=== PATIENT | female | born 1995 | race Caucasian/White ===

== ENCOUNTER 2022-03-25 16:15 | Outpatient (REF) | payer OTHER, SELFPAY ==
[2022-03-25 17:01] LABS: Hematocrit 40.8 % (37.0-47.0); Hemoglobin 13.1 g/dl (12.0-16.0); Mean Corpuscular HGB Conc 32.1 g/dl (31.0-35.0); Mean Platelet Volume 11.9 fL (9.4-12.3); Platelet Count 239 X10*3/uL (160-400); Red Blood Count 4.86 X10*6/uL (4.20-5.50); Red Cell Distribution Width 13.6 % (11.0-16.0); White Blood Count 8.5 X10*3/uL (4.8-10.8)
[2022-03-25 18:19] LABS: Alanine Aminotransferase 13 U/L (0-31); Albumin Level 4.3 g/dL (3.5-5.0); Alkaline Phosphatase 82 U/L (39-117); Anion Gap 11 (12-20); Aspartate Amino Transferase 14 U/L (5-31); Bilirubin Total 0.5 mg/dL (0.0-1.0); Blood Urea Nitrogen 13 mg/dL (9-16); C Reactive Protein 0.26 mg/dL (< or = 0.50); Calcium 9.4 mg/dL (8.4-10.2); Carbon Dioxide 26 mmol/L (22-29); Chloride 103 mmol/L (96-108); Estimated Glomerular Filt Rate > 60; Ferritin 15 ng/mL (10-122); Glucose Random 88 mg/dL (60-115); Iron 90 mcg/dL (30-160); Percent Iron Saturation 28 % (15-50); Potassium 3.8 mmol/L (3.3-5.1); Sodium 136 mmol/L (135-145); TSH reflex Free T4 1.74 uIU/mL (0.32-4.0); Total Iron Binding Capacity 327 mcg/dL (228-428); Total Protein 6.9 g/dL (6.5-8.0); Unsaturated Iron Binding 237 ug/dL
[2022-03-25 19:21] LABS: Vitamin B12 586 pg/mL (200-900)
[2022-03-27 13:49] LABS: IgA 257 mg/dL (47-310); IgG 902 mg/dL (600-1640); IgM 203 mg/dL (50-300)
[2022-03-27 14:13] LABS: Transglutaminase IgA <1.0 U/mL
== END 2022-03-25 16:16 | disposition home or self-care (01) ==
LOC: HO.LAB 16:15
PROVIDERS: Visit Provider Internal Medicine
DX: K52.9 Noninfective gastroenteritis and colitis, unspecified (principal); R11.2 Nausea with vomiting, unspecified
CPT/HCPCS: 36415; 80053; 82306; 82607; 82728; 82746; 82784; 83540; 84443; 85027; 86140; 86364; 99202

== ENCOUNTER 2022-03-26 10:21 | Outpatient (REF) | payer OTHER, SELFPAY ==
[2022-03-26 11:27] LABS: Leukocytes Stool Qualitative NEGATIVE (NEGATIVE)
[2022-03-26 12:38] LABS: Adenovirus F 40/41 Not Detected (Not Detect.); Astrovirus Not Detected (Not Detect.); Campylobacter Not Detected (Not Detect.); Cryptosporidium Not Detected (Not Detect.); Cyclospora cayetanensis Not Detected (Not Detect.); E. coli EAEC Not Detected (Not Detect.); E. coli EPEC Not Detected (Not Detect.); E. coli ETEC Not Detected (Not Detect.); E. coli STEC Not Detected (Not Detect.); Entamoeba histolytica Not Detected (Not Detect.); Giardia lamblia Not Detected (Not Detect.); Norovirus GI/GII Not Detected (Not Detect.); Plesiomonas shigelloides Not Detected (Not Detect.); Rotavirus A Not Detected (Not Detect.); Salmonella Not Detected (Not Detect.); Sapovirus Not Detected (Not Detect.); Shigella sp./EIEC Not Detected (Not Detect.); Vibrio Not Detected (Not Detect.); Vibrio Cholerae Not Detected (Not Detect.); Yersinia enterocolitica Not Detected (Not Detect.)
[2022-04-04 22:13] LABS: Calprotectin, Fecal 48 mcg/g
== END 2022-03-26 10:22 | disposition home or self-care (01) ==
LOC: HO.LNP 10:21
PROVIDERS: Visit Provider Internal Medicine
DX: K52.9 Noninfective gastroenteritis and colitis, unspecified (principal); R11.2 Nausea with vomiting, unspecified
CPT/HCPCS: 83993; 87338; 87507; 89055

== ENCOUNTER → 2022-04-12 13:41 | Outpatient (BNVA) | payer OTHER, SELFPAY | PROVIDERS: Visit Provider Internal Medicine | DX: K52.9 Noninfective gastroenteritis and colitis, unspecified (principal); R11.2 Nausea with vomiting, unspecified | CPT/HCPCS: 99212 ==

== ENCOUNTER 2022-04-23 12:13 | Day surgery (SDC) | payer OTHER, SELFPAY ==
[2022-04-17 16:15] VITALS: BMI 26.9
--- NOTE | 2022-04-19 13:11 | HO.ANESPROP2 ---
Documented by User: Roro Cordova NP 04/19/22 13:14 HPI - Anesthesia Eval Consult details Narrative: 27yo F for Upper Endoscopy and Colonoscopy PMFSH Active Problems Active Problems: All Active Problems (Updated 03/26/22 @ 09:02 by Meghan Masters MD) Abdominal cramping (Acute) Chronic diarrhea (Acute) Nausea & vomiting (Acute) Family History Family History Father Cancer Maternal Grandmother Cancer Paternal Grandfather Cancer Surgical History Surgical History History of esophagogastroduodenoscopy (EGD) History of wisdom tooth extraction Social History Social History Patient Tobacco Use Status: Never used Tobacco Are you DNR?: No Advance Directives: No Advance Directives Information Provided: Yes Nutrition Risks: No Nutritional Risk Patient : No FDLMP: 04/11 Meds Allergies Allergy/AdvReac Type Severity Reaction Status Date / Time No Known Allergies Allergy Verified 04/12/22 13:42 Home Medications Medication Instructions Recorded Confirmed Last Taken Type promethazine 12.5 mg rectal 25 mg NM BID 03/25/22 Unknown History suppository Exam Exam Date and Time: April 19, 2022 1311 Height,Weight and Vital Signs: Height 5 ft 3 in Weight 68.946 kg Pertinent Lab Results Pertinent Lab Results: Laboratory Tests 03/25/22 03/25/22 16:37 16:37 WBC 8.5 Hgb 13.1 Hct 40.8 Plt Count 239 Sodium 136 Potassium 3.8 Chloride 103 Carbon Dioxide 26 BUN 13 Creatinine 0.75 Assessment and Plan Assessment Anesthesia Assessment: Chart Reviewed Documented by User: Savage Velarde MD 04/23/22 12:43 PMFSH Active Problems Active Problems: All Active Problems (Updated 03/26/22 @ 09:02 by Meghan Masters MD) Abdominal cramping (Acute) Chronic diarrhea (Acute) exercise induced asthma Nausea & vomiting (Acute) Family History Family History Father Cancer Maternal Grandmother Cancer Paternal Grandfather Cancer Family history of problems with anesthesia: No Surgical History Surgical History History of esophagogastroduodenoscopy (EGD) History of wisdom tooth extraction History of Problems with Anesthesia: No Social History Social History Patient Tobacco Use Status: Never used Tobacco Are you DNR?: No Advance Directives: No Advance Directives Information Provided: Yes Nutrition Risks: No Nutritional Risk Patient : No FDLMP: 04/11 Meds Allergies Allergy/AdvReac Type Severity Reaction Status Date / Time No Known Allergies Allergy Verified 04/12/22 13:42 Home Medications Medication Instructions Recorded Confirmed Last Taken Type promethazine 12.5 mg rectal 25 mg NM BID 03/25/22 Unknown History suppository Exam Airway Mallampati Class: II TM Dist: >3cm Neck ROM: Full Heart: rrr Lungs: clear Assessment and Plan Final Anesthetic Review Family History of Problems with Anesthesia: No History of Problems with Anesthesia: No NPO: Yes ASA Class: II Final Preanesthetic Review: No Changes in Pt Med Stat, Meds/Allgs Chart Reviewed, Consent Obtained/Reviewed and Anes Risks/Benef Reviewed Patient Risk: Intermediate Procedure Risk: Low Anesthetic Plan Anesthetic Plan: MAC: Disposition: Standard PACU
[2022-04-23 12:16] VITALS: BP 112/80; PULSE 92; RESP 18; TEMP -13.8; TEMP 7; O2SAT 98
[2022-04-23 12:31] LABS: UPreg QC Valid YES; Urine Pregnancy NEGATIVE (NEGATIVE)
[2022-04-23] MEDS: Lactated Ringers 1,000 ML 100 ML IVCONT (12:41)
--- NOTE | 2022-04-23 12:56 | MHC.SHP ---
Pre-Procedural Eval Section A Date of Service: 04/23/22 The patient is an INPATIENT: No The History & Physical has been completed within 30 days and I have reviewed it.: Yes Section B Chief Complaint: Nausea with vomiting,abdominal pain,gastroenteriti Allergies: Allergies Allergy/AdvReac Type Severity Reaction Status Date / Time No Known Allergies Allergy Verified 04/12/22 13:42 Plan Diagnosis/Plan: Unchanged I have reviewed the history and physical and performed a pertinent physical examination on my patient. No changes have occurred unless specified. Time Spent With Patient Time: Total time managing care of this patient today ____ minutes.
--- NOTE | 2022-04-23 13:04 | P.OP_ITS ---
Operative Note Operative Note Date of Service: 04/23/22 Narrative: Procedure: Esophagogastroduodenoscopy and Colonoscopy Indication: Abd pain, chronic N,V,D Endoscopist: Meghan Masters MD Anesthesia Provider: Dr Savage Velarde Anesthesia type: MAC Instrument: Olympus [id number]-[id number] and [id number] ?? EGD Procedure:?? The procedure, indications, preparation and potential complications were reviewed with the patient, who indicated understanding and gave written informed consent to proceed. A physical exam was performed. The endoscope was introduced through the mouth, and advanced to the second part of duodenum. The mucosa was carefully examined on slow withdrawal of the endoscope. The patient tolerated the procedure well. There were no immediate complications.? ? EGD Findings:? * Esophagus:? Normal mucosa noted in the entire esophagus. The Z line was at 38 cm. Middle and lower esophagus cold forceps biopsies were obtained to rule out eosinophilic esophagitis. * Stomach:? Normal mucosa was noted in the stomach. Random cold forceps gastric biopsies were taken to rule out H Pylori infection. * Duodenum:? Normal mucosa was noted in the whole of the examined duodenum. Cold forceps biopsies were taken from duodenal bulb and second portion of the duodenum to rule out celiac sprue. Colonoscopy Procedure: The patient was then turned for the colonoscopy. A digital rectal exam was performed which was normal. The colonoscope was then inserted through the anus and advanced through the colon to the cecum at 80 cm. The appendiceal orifice and ileocecal valve was identified. Mucosa was carefully examined under high definition white light as the instrument was slowly withdrawn in a retrograde panoramic fashion. Retroflexion was performed in rectum. The procedure was not difficult. There were no immediate obvious complications. The quality of the prep was BBPS: 1+2+1 = inadequate Withdrawal time 8 minutes. Limitations: Poor prep. Findings: Mucosa: Normal to cecum to the extent visualised. Random cold forceps biopsies were taken from right and left side of the colon to r/o microscopic colitis Protruding lesions: * Small internal hemorrhoids stigmata of recent bleeding. ? Impression:? * Normal esophagus (biopsy) * Normal stomach (biopsy) * Normal duodenum (biopsy) * Limited visualisation of colon mucosa (biopsy) * Poor prep. Exam was not adequate for polyp detection. ?? Recommendations:?? * Follow biopsy results. Our office will call or send a letter with results within 7-10 days. * If H pylori +, patient will be prescribed eradication therapy followed by test of cure. * Avoid NSAIDs. * Resume CRC screening at 43y.o Above has been reviewed with the patient. Relevant educational hand outs were provided at discharge.
[2022-04-23 14:05] VITALS: BP 108/69; PULSE 77; RESP 14; TEMP 36.3; O2SAT 98
[2022-04-23 14:20] VITALS: BP 117/79; PULSE 67; RESP 16; TEMP 36.4; O2SAT 99
--- NOTE | 2022-04-23 15:01 | PC.NURSE ---
ANESTHESIA, GRAHAM WEBBER ACCESSED PATIENT PRIOR TO HER DISCHARGE PATIENT REPORTED SOME DIZZINESS. DR. STEVENSON STATED FOR PATIENT TO TAKE IT EASY WHEN SHE GOT HOME AND TO DRINK FLUIDS. 117/71, 74, 98% RA.
== END 2022-04-23 15:04 | disposition home or self-care (01) ==
PROVIDERS: Nurse Practitioner; PCP Internal Medicine; Visit Provider Internal Medicine
PROC: (CPT 45380; principal; 2022-04-23 13:50)
DX: R10.9 Unspecified abdominal pain (principal); K52.9 Noninfective gastroenteritis and colitis, unspecified; K64.8 Other hemorrhoids; R11.2 Nausea with vomiting, unspecified
CPT/HCPCS: 45380; 43239; 81025; 88305; 88342

== ENCOUNTER → 2022-05-07 10:56 | Outpatient (BNVA) | payer OTHER, SELFPAY | PROVIDERS: PCP Internal Medicine; Visit Provider Internal Medicine | DX: R11.2 Nausea with vomiting, unspecified (principal) | CPT/HCPCS: 99212 ==

== ENCOUNTER 2022-05-21 09:26 | Outpatient (REF) | payer OTHER, SELFPAY ==
[2022-05-22 15:09] LABS: H Pylori Breath Test Negative (Negative)
== END 2022-05-21 09:27 | disposition home or self-care (01) ==
LOC: HO.LNP 09:26
PROVIDERS: PCP Internal Medicine; Visit Provider Internal Medicine
DX: Z11.2 Encounter for screening for other bacterial diseases (principal); K52.9 Noninfective gastroenteritis and colitis, unspecified; R10.9 Unspecified abdominal pain; R11.2 Nausea with vomiting, unspecified
CPT/HCPCS: 83013; 99211

== ENCOUNTER → 2022-08-13 08:30 | Outpatient (BNVA) | payer OTHER, SELFPAY | PROVIDERS: PCP Internal Medicine; Visit Provider Internal Medicine Gastroenterology ==

== ENCOUNTER 2022-10-17 09:57 | Outpatient (REF) | payer OTHER, SELFPAY ==
--- NOTE | ~2022-10-17 | US_ITS ---
EXAMINATION: US ABDOMEN COMPLETE CLINICAL INFORMATION: Nausea with vomiting, unspecified. COMPARISON: None available. TECHNIQUE: Real-time imaging of the abdominal viscera. FINDINGS: PANCREAS: Normal. ABDOMINAL AORTA: The proximal, mid, and distal segments are normal in caliber. INFERIOR VENA CAVA: Visualized portions are normal. LIVER: The liver is normal in size. The liver contour is normal. Parenchymal echogenicity is normal. There is a 3.3 x 2.8 x 3.6 cm hyperechoic lesion or area high in the posterior right lobe of the liver questionable for a hemangioma. There is no intrahepatic biliary duct dilatation seen. GALLBLADDER: The gallbladder is normal in size. Multiple gallbladder wall polyps largest measuring 7 x 4 x 5 mm. No gallstones. COMMON BILE DUCT: Normal in caliber measuring 0.2 cm in diameter. RIGHT KIDNEY: Normal. No hydronephrosis. No renal calculi or focal parenchymal lesions. The kidney measures 11.7 cm in maximum dimension. LEFT KIDNEY: 1.1 x 1.5 x 1.1 cm hyperechoic lesion in the upper pole. 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 No hydronephrosis or renal calculi. The kidney measures 11.4 cm in maximum dimension. SPLEEN: Normal. The spleen measures 11.9 cm in maximum dimension. FREE FLUID: None. US/US abdomen complete IMPRESSION: 3 cm hyperechoic lesion in the right lobe of the liver questionable for a hemangioma. 1 x 1.5 cm hyperechoic lesion in the upper pole the left kidney questionable for an angiomyolipoma. Follow-up abdominal MRI for further characterization of these findings recommended. Multiple gallbladder wall polyps, largest measuring 7 mm. Given size of polyp, ultrasound follow-up in 6 months recommended.
== END 2022-10-17 09:58 | disposition home or self-care (01) ==
LOC: HO.HMGCX 09:57
PROVIDERS: PCP Internal Medicine; Visit Provider Internal Medicine
DX: R11.2 Nausea with vomiting, unspecified (principal)
CPT/HCPCS: 76700

== ENCOUNTER → 2022-10-25 14:55 | Outpatient (BNVA) | payer OTHER, SELFPAY | PROVIDERS: PCP Internal Medicine; Visit Provider Surgery | DX: K52.9 Noninfective gastroenteritis and colitis, unspecified (principal); K82.4 Cholesterolosis of gallbladder; R11.2 Nausea with vomiting, unspecified; R10.9 Unspecified abdominal pain | CPT/HCPCS: 99202 ==

== ENCOUNTER 2022-11-14 08:31 | Day surgery (SDC) | payer OTHER, SELFPAY ==
[2022-11-14] VITALS (16 sets, daily range): BP systolic 119–135; BP diastolic 61–84; PULSE 60–100; RESP 15–18; TEMP 36.6–36.9; O2SAT 98–100; BMI 25.7
[2022-11-14] MEDS: Lactated Ringers 1,000 ML 100 ML IVCONT (08:53)
[2022-11-14 08:57] LABS: UPreg QC Valid YES; Urine Pregnancy NEGATIVE (NEGATIVE)
--- NOTE | 2022-11-14 09:15 | PC.NURSE ---
IV attempt by author. insertion by carmen caballero rn
--- NOTE | 2022-11-14 09:17 | P.OP_ITS ---
Operative Note Operative Note Date of Service: 11/14/22 Narrative: Preop diagnosis: [Abdominal pain and cholesterolosis of the gallbladder] Postop diagnosis: [same, RUQ adhesions to GB; incomplete rotation with congenital adhesive bands] Procedure: [Laparoscopic cholecystectomy and lysis of adhesions] Surgeon: Harry Torres MD Assist: [Jeremie Babcock PA-C] Anesthesia: [GET, local: Marcaine 0.5% plain] Estimated blood loss: [3cc] Specimen: [Gallbladder with contents] Intraoperative findings: [Incomplete rotation with the cecum in the pelvis on the uterus; adhesive band from the right anterolateral abdomen to the ascending colon; the duodenum/pylorus appeared to cross the midline in the right upper quadrant; adhesion of the omentum to the gallbladder consistent with chronic calculous cholecystitis; cystic duct 5 mm, cystic artery 3 mm; critical view of safety demonstrated] Indications: The patient is a 27-year-old woman with multiple abdominal complaints being evaluated by Gastroenterology. During her workup, she was noted to have cholesterolosis and symptoms concerning for possible chronic calculous cholecystitis and biliary colic were noted in addition to symptoms that are not related to biliary tract disease related to likely irritable bowel syndrome. The symptoms include crampy abdominal pain with with diarrhea and constipation. Patient requested a telephone conference with her mother to review options which included 2nd medical or surgical opinion and continued observation verses laparoscopic, possible open cholecystectomy. The patient and her mother seemed understand the options and wanted to proceed with cholecystectomy. I detailed the inherent risks to surgery which include, but are not limited to: Persistence of some of her abdominal complaints and pain since they did not represent typical biliary tract disease, worsening of diarrhea that could require medication post cholecystectomy, bleeding that could require another operation or blood transfusion, the need for open surgery, the unlikely but possible issue of bile leak that could require an ERCP, the risk of retained common duct stones that could require an ERCP, the risk of common bile duct injury which would require transfer to a larger institution for another operati on. Patient seemed to understand her options, declined a fixed income trading vice president or 2nd opinion and wants to proceed. Procedure: The patient was identified in preoperative holding and again in the operating room and placed supine on the table. An appropriate time-out was performed and preemptive local used at all trocar insertion sites. I began at the patient's supraumbilical midline and placed a Veress needle through a transverse supraumbilical incision. An appropriate drop test was performed. The needle was connected to high flow and opening pressures were 5 mmHg. A pneumoperitoneum of 15 mmHg was then obtained using carbon dioxide. The Veress needle was then removed and I accessed the patient's abdomen through the supraumbilical midline incision using a 5 mm Optiview trocar and 30 degree/5 mm laparoscopic without incident. Next a a 5 mm epigastric and two 5 mm right subcostal ports were placed with preemptive analgesia under direct laparoscopic vision without incident and the supraumbilical trocar upsized to a 12 mm trocar under direct laparoscopic vision. The gallbladder was clearly identified and the omentum was adherent consistent with chronic calculous cholecystitis and required a lysis of adhesions to safely the omentum from the gallbladder. The duodenum was also adherent to the neck of the gallbladder. Following that he see a lysis, the gallbladder was grasped by its fundus. It was retracted cranially and anteriorly and dissection began in the lateral cystic triangle. The cystic duct was identified at its junction on the gallbladder and dissection carried medially, then circumferentially using the [place] dissector and hook. The cystic artery was then carefully identified and circumferentially dissected. Once dissection of both structures was complete and the critical view of safety demonstrated, the duct and artery were double clipped proximally and once distally and sharply divided. Electrocautery was used to remove the gallbladder from its fossa on the liver. Liver bed was inspected for hemostasis and the clips were noted to be on the respective structures. The gallbladder was placed in an Endo-Catch bag and delivered through the umbilicus under direct laparoscopic vision. The abdomen was again inspected with the laparoscoped and a abdomen deflated to assess for hemostasis. The patient was returned to neutral position, the abdomen deflated and the fascia of the supraumbilical incision closed with interrupted Vicryl sutures. Skin was closed with 4-0 Monocryl subcuticular sutures. Mastisol and Steri-Strips were applied followed by Band-Aids. The patient tolerated the procedure well and was extubated recovered in stable condition. All sponge instrument counts were correct. At the patient's request I called her mother, Monica at [phone] to apprise her of the operation and post-op plan, activity restrictions, pain management & bowel regime. I explained about the incomplete rotation and adhesive band which could contribute to irritable bowel symptoms, so a lysis of adhesions was performed and she will be followed clinically. Questions seemed to be satisfactorily answered.]
--- NOTE | 2022-11-14 09:17 | MHC.SHP ---
Pre-Procedural Eval Section A Date of Service: 11/14/22 The patient is an INPATIENT: No The History & Physical has been completed within 30 days and I have reviewed it.: Yes Section B Chief Complaint: Cholesterolosis of gallbladder,Nausea with vomitin Allergies: Allergies Allergy/AdvReac Type Severity Reaction Status Date / Time No Known Allergies Allergy Verified 10/25/22 14:59 Plan I have reviewed the history and physical and performed a pertinent physical examination on my patient. No changes have occurred unless specified. Time Spent With Patient Time: Total time managing care of this patient today ____ minutes.
--- NOTE | 2022-11-14 10:43 | HO.ANESPROP2 ---
Documented by User: Roro Cordova NP 11/13/22 12:16 HPI - Anesthesia Eval Consult details Narrative: 27yo F for Cholecystectomy Laparoscopic,poss open, poss cholangiogram PMFSH Active Problems Active Problems: All Active Problems (Updated 10/21/22 @ 15:08 by Meghan Masters MD) Gallbladder polyp (Acute) Food allergy (Acute) Enteritis (Acute) Abdominal cramping (Acute) Chronic diarrhea (Acute) Nausea & vomiting (Acute) Family History Family History Father Cancer Maternal Grandmother Cancer Paternal Grandfather Cancer Family history of problems with anesthesia: No Surgical History Surgical History History of esophagogastroduodenoscopy (EGD) History of wisdom tooth extraction Hx of colonoscopy History of Problems with Anesthesia: No Social History Social History Patient Tobacco Use Status: Never used Tobacco Are you DNR?: No Advance Directives: No Advance Directives Information Provided: Yes Nutrition Risks: No Nutritional Risk FDLMP: ended two days ago Meds Allergies Allergy/AdvReac Type Severity Reaction Status Date / Time No Known Allergies Allergy Verified 10/25/22 14:59 Home Medications Medication Instructions Recorded Confirmed Last Taken Type promethazine 12.5 mg rectal 25 mg FL BID 03/25/22 11/12/22 Unknown History suppository Exam Exam Date and Time: November 13, 2022 121 Assessment and Plan Assessment Anesthesia Assessment: Chart Reviewed Final Anesthetic Review Family History of Problems with Anesthesia: No History of Problems with Anesthesia: No Documented by User: Erinn Lisa DO 11/14/22 10:43 HPI - Anesthesia Eval Consult details Narrative: 27yo F for Cholecystectomy Laparoscopic, poss open, poss cholangiogram PMFSH Family History Family History Father Cancer Maternal Grandmother Cancer Paternal Grandfather Cancer Family history of problems with anesthesia: No Surgical History Surgical History History of esophagogastroduodenoscopy (EGD) History of wisdom tooth extraction Hx of colonoscopy History of Problems with Anesthesia: No Social History Social History Patient Tobacco Use Status: Never used Tobacco Are you DNR?: No Advance Directives: No Advance Directives Information Provided: Yes Nutrition Risks: No Nutritional Risk FDLMP: ended two days ago Meds Allergies Allergy/AdvReac Type Severity Reaction Status Date / Time No Known Allergies Allergy Verified 10/25/22 14:59 Home Medications Medication Instructions Recorded Confirmed Last Taken Type promethazine 12.5 mg rectal 25 mg FL BID 03/25/22 11/12/22 Unknown History suppository Exam Exam Date and Time: November 14, 2022 1038 Height,Weight and Vital Signs: Height 5 ft 3 in Weight 65.771 kg Vital Signs Temperature 98.1 F 11/14/22 09:16 Pulse Rate 100 11/14/22 09:16 Respiratory Rate 18 11/14/22 09:16 Blood Pressure 119/79 11/14/22 09:16 Pulse Oximetry 98 11/14/22 09:16 Oxygen Delivery Method Room Air 11/14/22 09:16 Temperature 98.1 F 11/14/22 09:16 Pulse Rate 100 11/14/22 09:16 Respiratory Rate 18 11/14/22 09:16 Blood Pressure 119/79 11/14/22 09:16 Pulse Oximetry 98 11/14/22 09:16 Oxygen Delivery Method Room Air 11/14/22 09:16 Airway Mallampati Class: I TM Dist: >3cm Neck ROM: Full Loose/Missing/Broken Teeth: No Heart: S1S2 Lungs: CTAB Assessment and Plan Assessment Anesthesia Assessment: Anesthesia Plan Discussed and Chart Reviewed Final Anesthetic Review Family History of Problems with Anesthesia: No History of Problems with Anesthesia: No NPO: Yes ASA Class: I Final Preanesthetic Review: No Changes in Pt Med Stat, Meds/Allgs Chart Reviewed, Consent Obtained/Reviewed and Anes Risks/Benef Reviewed Patient Risk: Low Procedure Risk: Low Anesthetic Plan Anesthetic Plan: GA and Agree w/ Assess. and Plan Disposition: Standard PACU
[2022-11-14] MEDS: ondansetron HCL 4 MG/2 ML VIAL IVPUSH (12:27)
[2022-11-14] MEDS: Scopolamine 1.5 MG PATCH.TD.3 EAR-BEHIND (14:06)
[2022-11-14] MEDS: HYDROmorphone HCl 0.5 MG/0.5 ML SYRINGE IVPUSH (14:40)
== END 2022-11-14 15:27 | disposition home or self-care (01) ==
LOC: HO.SSS 08:32
PROVIDERS: Nurse Practitioner; PCP Internal Medicine; Visit Provider Surgery
PROC: 0FT44ZZ Resection of Gallbladder, Percutaneous Endoscopic Approach (ICD-10-PCS; CPT 47562; principal; 2022-11-14 10:00)
DX: K81.1 Chronic cholecystitis (principal); K82.8 Other specified diseases of gallbladder; Q43.3 Congenital malformations of intestinal fixation
CPT/HCPCS: 47562; 47579; 81025; 88304; J0131; J0690; J1170; J1885; J2250; J2405; J2550; J2795; J3010

== ENCOUNTER → 2022-11-14 08:31 | Outpatient (BNV) | payer OTHER, SELFPAY | PROVIDERS: PCP Internal Medicine; Visit Provider Surgery | DX: K80.10 Calculus of gallbladder with chronic cholecystitis without obstruction (principal) | CPT/HCPCS: 47562 ==

== ENCOUNTER 2022-11-25 09:57 | Outpatient (AMB) | payer OTHER, SELFPAY ==
--- NOTE | 2022-11-25 10:16 | A.OFFVIS_ITS ---
Intake Vital Signs 11/25/22 10:22 Height 5 ft 3 in Weight 138 lb 14.259 oz BMI 24.6 Respiration 16 Pulse 72 Intake Visit Reasons: S/P lap jason Intake Note: Patient is seen in office for post op assessment post laparoscopic cholecystectomy. Patient c/o:admits to pain and bruising at incision site, pain left side of abdomen, nausea, watery stool, denies constipation or other concerns Chairman & Co Founder Required: No Accompanied by: Self / Same As Patient Allergies No Known Allergies Allergy (Verified 11/25/22 10:17) HPI HPI Comments History of Present Illness Details The patient had contacted the office last week postoperatively requesting ondansetron due to unrelenting nausea. I ordered labs to assess for complication from lap choly, but the patient did not go to get them noting childcare issues and she does not have time today. She denies any pain, continues to report the same nausea she has had since February of last year and continues to note alternating diarrhea and constipation consistent with her irritable bowel syndrome. She is tolerating her diet. She denies any fevers or chills. The patient does note left lower quadrant pain that started a couple days ago but she is passing gas and moving her bowels. [facility] Surgical History History of esophagogastroduodenoscopy (EGD) History of laparoscopic cholecystectomy (11/14/22) History of wisdom tooth extraction Hx of colonoscopy Family History Father Cancer Maternal Grandmother Cancer Paternal Grandfather Cancer Social History Patient Tobacco Use Status: Never used Tobacco Review of Systems Const All systems reviewed & are unremarkable except as noted in HPI and below Reports as per HPI Physical Exam Vital Signs: Last Vital Signs Pulse 72 11/25/22 10:22 Resp 16 11/25/22 10:22 BMI result Body Mass Index 24.6 On exam, she is anicteric and nontoxic Sclera remain anicteric She is in no acute respiratory distress Abdomen is soft with no tenderness. 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 Assessment & Plan Assessment & Plan (1) Chronic calculous cholecystitis: Code(s): K80.10 - Calculus of gallbladder with chronic cholecystitis without obstruction (2) Irritable bowel syndrome: Code(s): K58.9 - Irritable bowel syndrome without diarrhea Plan Instructions regarding diet and activity reviewed and apparently understood. The patient will refrain from performing central strengthening exercises or strenuous activities that include lifting more than 20 lb until Day. Explained this is to minimize risk of incisional hernia. The patient notes continuing nausea. Her abdominal exam isn't consistent with a bile leak or other postoperative complication and the patient noted again that she does not have time to go for nonfasting labs today. She continued to endorse nausea that is unchanged since last February and alternating diarrhea and constipation consistent with irritable bowel syndrome. The importance of follow-up with GI was reviewed; the patient also notes that she has a urology appointment regarding CT findings on her kidney and route sales delivery driver appointment this month. Patient is otherwise doing well postoperatively and is discharged from my care. She will follow up with her PCP, route sales delivery driver and Urology in all see her again if a new surgical issue arises. Orders: Orders Comprehensive Met. Panel 11/21/22 R10.9 - Unspecified abdominal pain, R11.2 - Nausea with vomiting, unspecified Lipase 11/21/22 K80.20 - Calculus of gallbladder without cholecystitis without obstruction, R10.9 - Unspecified abdominal pain, R11.2 - Nausea with vomiting, unspecified Complete Blood Count Auto Diff 11/21/22 R10.9 - Unspecified abdominal pain, R11.2 - Nausea with vomiting, unspecified Coding Level of Care Code Global (56418) Diagnoses Chronic calculous cholecystitis K80.10 Irritable bowel syndrome K58.9
[2022-11-25 10:22] VITALS: PULSE 72; RESP 16; BMI 24.6
== END 2022-11-25 10:44 | disposition home or self-care (01) ==
PROVIDERS: PCP Internal Medicine; Visit Provider Surgery
DX: K80.10 Calculus of gallbladder with chronic cholecystitis without obstruction (principal); K58.9 Irritable bowel syndrome, unspecified
CPT/HCPCS: 99024

== ENCOUNTER → 2022-11-25 09:57 | Outpatient (BNVA) | payer OTHER, SELFPAY | PROVIDERS: PCP Internal Medicine; Visit Provider Surgery | DX: R10.9 Unspecified abdominal pain (principal); R11.2 Nausea with vomiting, unspecified ==

== ENCOUNTER 2023-03-08 10:29 | Emergency (ER) | payer OTHER, SELFPAY ==
[2023-03-08 10:31] VITALS: BP 118/81; PULSE 115; RESP 18; TEMP 36.3; O2SAT 97; BMI 25.6
[2023-03-08 10:46] LABS: MANUAL DIFF FLAG NO
[2023-03-08 10:48] LABS: Basophils Absolute Auto 0.1 X10*3/uL (0.0-0.2); Basophils Percent Auto 0.9 % (0-2); Eosinophils Absolute Auto 0.4 X10*3/uL (0.0-0.4); Hematocrit 42.6 % (37.0-47.0); Hemoglobin 14.1 g/dl (12.0-16.0); Imm Gran Abs Auto 0.02 X10*3/uL (0.00-0.03); Imm Gran Pct Auto 0.2 % (0.0-0.4); Lymphocytes Percent Auto 21.4 % (20-40); Mean Corpuscular HGB Conc 33.1 g/dl (31.0-35.0); Mean Corpuscular Hemoglobin 27.3 pg (27.0-33.0); Mean Corpuscular Volume 82.6 fL (80.0-98.0); Mean Platelet Volume 10.4 fL (9.4-12.3); Monocytes Absolute Auto 0.5 X10*3/uL (0.1-1.2); Monocytes Percent Auto 5.7 % (2-11); Neutrophils Absolute Auto 6.4 x10*3/uL (2.0-8.3); Neutrophils Percent Auto 67.8 % (45-73); Platelet Count 298 X10*3/uL (160-400); Red Blood Count 5.16 X10*6/uL (4.20-5.50); Red Cell Distribution Width 12.8 % (11.0-16.0); White Blood Count 9.4 X10*3/uL (4.8-10.8)
[2023-03-08 11:02] LABS: Alanine Aminotransferase 13 U/L (0-31); Albumin Level 4.5 g/dL (3.5-5.0); Alkaline Phosphatase 90 U/L (39-117); Anion Gap 9 (12-20); Aspartate Amino Transferase 21 U/L (5-31); Bilirubin Direct 0.3 mg/dL (0.0-0.5); Bilirubin Total 0.7 mg/dL (0.0-1.0); Blood Urea Nitrogen 14 mg/dL (9-16); Calcium 9.5 mg/dL (8.4-10.2); Carbon Dioxide 27 mmol/L (22-29); Chloride 107 mmol/L (96-108); Creatinine Clr Calc Pharmacy 99.8; Estimated Glomerular Filt Rate > 60; Glucose Random 109 mg/dL (60-115); Lipase 32 U/L (8-78); Potassium 3.4 mmol/L (3.3-5.1); Sodium 140 mmol/L (135-145); Total Protein 7.5 g/dL (6.5-8.0)
[2023-03-08 11:20] VITALS: BP 128/84; PULSE 106; RESP 16; TEMP 36.8; O2SAT 98
--- NOTE | 2023-03-08 11:28 | PC.NURSE ---
a&ox3, vss aside from pt being slightly tachycardic. pt comes in today d/t n/v/d/renee that has occurred since 02/13. pt had gallbladder removal in october. pt miscarried some time in december (unaware on what day). pt states that sx seems to have started around that time. pt denies chance of at this time. abdomen non-tender upon palpation. pt denies bloody stool, urinary sx, hematemesis. pt verbalizes pain only when she throws up. pt also verbalizing sore throat d/t acidity of vomit. pt currently seems to be resting in no apparent distress. swabs obtained/sent to lab. pt provided w/ urine cup for when pt is able to supply sample. respirations even and unlabored. call perez placed within reach.
--- NOTE | 2023-03-08 11:39 | ED.GENADULT ---
HPI - General Adult General Chief complaint: General Medical Stated complaint: vomiting Time Seen by Provider: 03/08/23 11:39 Source: patient Mode of arrival: ambulatory Limitations: no limitations History of Present Illness HPI narrative: Patient is a 28 year old assigned female at with a history of IBS presenting to the emergency department today with nausea, vomiting, and diarrhea. Patient states that over the last 3 weeks she has had nausea, vomiting, and diarrhea. Patient states that liquid go down and stay down some what better but food is vomited back up after 5 hours, undigested. Patient denies any dizziness, lightheadedness, abdominal pain, fever, chills, blurry vision, double vision, loss of vision, chest pain, difficulty breathing, shortness of breath, back pain, night sweats, pain with urination, increased urinary frequency, increased urinary urgency, blood in her urine or stool, syncope or a near syncopal episode, recent trauma or falls, bowel incontinence, bladder incontinence, bowel retention, bladder retention, or any other complaints at this time. Onset (ago): week(s) (3) Relieving factors: none Exacerbating factors: none Associated symptoms: nausea/vomiting Related Data Home Medications Medication Instructions Recorded Confirmed promethazine 12.5 mg rectal 25 mg MT BID 03/25/22 11/12/22 suppository Previous Rx's Medication Instructions Recorded loperamide 2 mg capsule (Imodium 2 mg PO Q4H PRN loose stool #14 06/27/22 A-D) caps omeprazole 20 mg capsule,delayed 20 mg PO DAILY #30 caps 09/26/22 release oxycodone 5 mg tablet 5 mg PO Q4H PRN pain #20 tabs 11/14/22 ondansetron 4 mg disintegrating 4 mg PO BID PRN nausea and 03/03/23 tablet vomiting 30 days #20 tabs sucralfate 100 mg/mL oral 10 ml PO QIDACHS #1,000 mL 03/03/23 suspension promethazine 12.5 mg rectal 12.5 mg MT Q4-6H PRN nausea and 03/08/23 suppository (Promethegan) vomiting #12 ea Allergies Allergy/AdvReac Type Severity Reaction Status Date / Time No Known Allergies Allergy Verified 02/27/23 14:08 Review of Systems Constitutional: Constitutional: Reports no additional constitutional complaints, Denies chills, Denies fever(s) and Denies night sweats Eyes: Eyes: Reports no additional eye complaints, Denies blurry vision, Denies change in vision, Denies diplopia, Denies eye discharge, Denies loss of vision and Denies eye pain ENT: Denies dizziness Cardiovascular: Cardiovascular: Reports no additional cardiovascular complaints, Denies chest pain, Denies lightheadedness, Denies Loss of Consciousness and Denies dyspnea Respiratory: Respiratory: Reports no additional respiratory complaints and Denies dyspnea Gastrointestinal: Gastrointestinal: Reports no additional gastrointestinal complaints, Denies abdominal pain, Denies melena, Denies hematochezia, Denies change in bowel habits, Denies change in stool character, Reports diarrhea, Reports nausea and Reports vomiting Genitourinary: Genitourinary: Denies hematuria, Denies urinary frequency, Denies dysuria, Denies urinary incontinence, Denies urinary hesitancy and Denies urinary urgency Musculoskeletal: Musculoskeletal: Reports no additional musculoskeletal complaints, Denies numbness and Denies tingling Neurologic: Denies dizziness, Denies loss of vision, Denies numbness and Denies tingling Psychiatric: Psychiatric: Reports no additional psychiatric complaints Endocrine: Endocrine: Reports no additional endocrine complaints Hematologic/Lymphatic: Hematologic/Lymphatic: Reports no additional hematologic/lymphatic complaints Allergic/Immunologic: Allergic/Immunologic: Reports no additional allergic/immunologic complaints [facility] Past Medical History Attestation statement: The following information was validated with the patient. Source: old records reviewed and nursing notes reviewed Surgical History History of laparoscopic cholecystectomy (11/14/22) Hx of colonoscopy History of esophagogastroduodenoscopy (EGD) History of wisdom tooth extraction Family History Family History Father Cancer Maternal Grandmother Cancer Paternal Grandfather Cancer Social History Social History Alcohol intake: never Patient Tobacco Use Status: Never used Tobacco Smoked in Last 30 Days: No Use of substances other than those prescribed or required for medical reasons: No Advance Directives: No Advance Directives Information Provided: No Patient : No Physical Exam ED Vital Signs: Vital Signs - 24 hr 03/08/23 10:31 03/08/23 11:20 Temperature 97.4 F 98.3 F Pulse Rate 115 H 106 H Respiratory Rate 18 16 Blood Pressure 118/81 128/84 Pulse Oximetry 97 98 Oxygen Delivery Method Room Air Room Air BMI result Body Mass Index 25.6 Const General: cooperative, no acute distress, alert and awake Nutritional Appearance: well nourished Orientation/consciousness: patient oriented x3 Limitations: no limitations HENMT Head: Yes normal to inspection and Yes atraumatic Ears: hearing grossly normal bilaterally and external ears normal General nose exam: Normal external nose present, no nasal discharge noted and no epistaxis Face and sinus: Yes normal facial exam, No abrasion and No laceration Mouth: Normal oral and palatal mucosa present, no drooling and no muffled voice Eyes General: appearance normal, both eyes and all related structures Periorbital: periorbital findings normal Eyelids: Yes eyelids normal Conjunctivae: conjunctivae normal Pupils: Equal, round and reactive pupils present EOM: EOMs intact bilaterally Neck Neck: Yes normal visual inspection, Yes full ROM and Yes no lymphadenopathy Chest Chest palpation & inspection: normal inspection of the chest Resp Effort & Inspection: normal respiratory effort and able to speak in complete sentences GI Inspection: Yes normal to inspection Neuro General: patient oriented x3 and moves all extremities Cranial nerves: Yes Equal, round and reactive pupils present Cognition (Neuro): normal cognition Motor exam (neuro): 5/5 motor strength present throughout Sensory Exam: Normal double simultaneous stimulation for sensation Coordination: [id number] test normal Extrem General: Yes normal to inspection, Yes full ROM and Yes capillary refill normal Psych Appearance: grossly normal Mental Status: mental status grossly normal Affect: normal affect Attitude: cooperative Thought process: Normal thought process present Thought content: Normal thought content present Insight: Good insight present (Psych) Medications Administered Discontinued Medications Generic Name Dose Route Start Last Admin Trade Name Freq PRN Reason Stop Dose Admin Sodium Chloride 1,000 mls @ 999 mls/hr 03/08/23 12:15 03/08/23 12:28 Ns IV 03/08/23 13:15 999 mls/hr .Q1H1M SHILPA Administration Ondansetron HCl 4 mg 03/08/23 12:10 03/08/23 12:28 Ondansetron Hcl 4 Mg/2 Ml Vial IVPUSH 03/08/23 12:11 4 mg ONCE ONE Administration Medical Decision Making Medical Decision Making [facility] Narrative: Patient is a 28 year old assigned female at with a history of IBS presenting to the emergency department today with nausea, vomiting, and diarrhea. Patient's physical exam was unremarkable. Patient's blood work was unremarkable. Patient's urine showed no acute process. I explained my physical exam findings as well as all test results to the patient. I answered all questions asked by the patient. Patient states that suppository promethazine worked for her previously however, her GI doctor stopped it and did not want her on it halfway due to possible dangers. I explained to the patient that I would prescribe it to bridge the patient to her GI doctor appointment in 5 days. Patient received IV fluids and Zofran while in the department which she stated helped her symptoms significantly. I stressed the importance of the patient taking her medication as prescribed. I stressed the importance of the patient following up with her primary care provider and her GI Specialist. I stressed the importance of the patient returning to the emergency department immediately if her symptoms were to worsen or if she were to develop any dizziness, shortness of breath, difficulty breathing, chest pain, blurry vision, loss of vision, nausea, vomiting, abdominal pain, fever, chills, back pain, or any other complaints. Patient verbalized agreement and understanding with this treatment plan and discharge. Differential Diagnosis Differential Diagnoses: The differential diagnosis associated with the presentation includes Nausea Vomiting IBS Diarrhea Admission/Observation Consideration of admission/observation: Escalation of care including admission/observation considered Patient would have been admitted to the hospital had her work up had any findings where hospital admission was appropriate and her clinical presentation warranted hospital admission. Lab Data [facility] Lab Attestation statement: I reviewed the patient's lab results. My interpretation of these studies and their corresponding values is that they are grossly normal. 03/08/23 10:41 03/08/23 10:41 Labs: Lab Results 03/08/23 03/08/23 03/08/23 Range/Units 10:41 11: 12:23 WBC 9.4 (4.8-10.8) X10*3/uL RBC 5.16 (4.20-5.50) X10*6/uL Hgb 14.1 (12.0-16.0) g/dl Hct 42.6 (37.0-47.0) % MCV 82.6 (80.0-98.0) fL MCH 27.3 (27.0-33.0) pg MCHC 33.1 (31.0-35.0) g/dl RDW 12.8 (11.0-16.0) % Plt Count 298 (160-400) X10*3/uL MPV 10.4 (9.4-12.3) fL Immature Gran % (Auto) 0.2 (0.0-0.4) % Neut % (Auto) 67.8 (45-73) % Lymph % (Auto) 21.4 (20-40) % [place] % (Auto) 5.7 (2-11) % Eos % (Auto) 4.0 (0-4) % Baso % (Auto) 0.9 (0-2) % Lymph # (Auto) 2.0 (1.2-4.9) X10*3/uL [place] # (Auto) 0.5 (0.1-1.2) X10*3/uL Eos # (Auto) 0.4 (0.0-0.4) X10*3/uL Baso # (Auto) 0.1 (0.0-0.2) X10*3/uL Abs Immat Gran (auto) 0.02 (0.00-0.03) X10*3/uL Absolute Neuts (auto) 6.4 (2.0-8.3) x10*3/uL Absolute Nucleated RBC 0.000 (0.0-0.012) X10*3/uL Nucleated RBC % (auto) 0.0 (0.0-0.2) /100WBC Sodium 140 (135-145) mmol/L Potassium 3.4 (3.3-5.1) mmol/L Chloride 107 (96-108) mmol/L Carbon Dioxide 27 (22-29) mmol/L Anion Gap 9 L (12-20) BUN 14 (9-16) mg/dL Creatinine 0.75 (0.5-1.4) mg/dL Estim Creat Clear Calc 99.8 Estimated GFR > 60 Random Glucose 109 (60-115) mg/dL Calcium 9.5 (8.4-10.2) mg/dL Total Bilirubin 0.7 (0.0-1.0) mg/dL Direct Bilirubin 0.3 (0.0-0.5) mg/dL AST 21 (5-31) U/L ALT 13 (0-31) U/L Alkaline Phosphatase 90 (39-117) U/L Total Protein 7.5 (6.5-8.0) g/dL Albumin 4.5 (3.5-5.0) g/dL Lipase 32 (8-78) U/L Urine Color Dark Yellow Urine Appearance Clear Urine pH 5.5 (5.0-9.0) Ur Specific [place] >= 1.030 H (1.005-1.025) Urine Protein Trace (Neg-Trace) mg/dL Urine Glucose (UA) Negative (Negative) mg/dL Urine Ketones Trace (Negative) mg/dL Urine Blood Trace H (Negative) Urine Nitrite Negative (Negative) Ur Leukocyte Esterase Small (1+) H (Negative) Urine RBC 3-5 H (0-2) /HPF Urine WBC 0-5 (0-5) /HPF Ur Squamous Epith Cells 6-10 (0-2) /HPF Urine Bacteria 2+ (None Seen) Hyaline Casts >20 (0-2) /LPF Urine Test NEGATIVE (NEGATIVE) Influenza Type A (PCR) NEGATIVE (Negative) Influenza Type B (PCR) NEGATIVE (Negative) RSV RNA Qual (PCR) NEGATIVE (Negative) SARS-CoV-2 RNA (RT-PCR) NEGATIVE (Negative) External Record Review External record reviewed: Office record and Outpatient record Prescription Management I considered prescription management with: Other (patient prescribed an antiemetic) Discharge Plan Discharge Clinical Impression: Nausea & vomiting Patient Disposition: Home, Self-Care Instructions: Acute Nausea and Vomiting (ED) Additional Instructions: Follow up with your primary care provider and your GI specialist. Return to the emergency department immediately if your symptoms worsen or if you develop any dizziness, shortness of breath, difficulty breathing, chest pain, blurry vision, loss of vision, nausea, vomiting, abdominal pain, fever, chills, back pain, or any other complaints. Prescriptions: New promethazine [Promethegan] 12.5 mg suppository 12.5 mg MT Q4-6H PRN (Reason: nausea and vomiting) Qty: 12 0RF No Action loperamide [Imodium A-D] 2 mg capsule 2 mg PO Q4H PRN (Reason: loose stool) Qty: 14 0RF Rx Instructions: Take 4 mg in the morning, followed by 2 mg after each loose stool. You can take up to a maximum of 16 mg/day. omeprazole 20 mg capsule,delayed release(DR/EC) 20 mg PO DAILY Qty: 30 1RF sucralfate 100 mg/mL suspension 10 ml PO QIDACHS Qty: 1000 1RF ondansetron 4 mg tablet,disintegrating 4 mg PO BID PRN (Reason: nausea and vomiting) 30 Days Qty: 20 0RF oxycodone 5 mg tablet 5 mg PO Q4H PRN (Reason: pain) Qty: 20 0RF Rx Instructions: Partial Fill upon patient request. promethazine 12.5 mg suppository 25 mg MT BID [place] [facility] [place] [facility] [place]] (Follow up with your GI specialist.) [facility] [place] [Provider Group] (Call to establish and follow up with a primary care provider. If you already have a primary care provider, please follow up with them.) [facility] [place] [place] [facility] [Provider Group] (Call to establish and follow up with a primary care provider. If you already have a primary care provider, please follow up with them.) [facility] [place] [place] [facility] [Provider Group] (Call to establish and follow up with a primary care provider. If you already have a primary care provider, please follow up with them.) Interventions: ED Discharge Assessment Last Done: 03/08/23 13:23 Print Language: Khmer
[2023-03-08 12:17] LABS: Influenza A PCR NEGATIVE (Negative); Influenza B PCR NEGATIVE (Negative); Resp Syncy Virus RNA Qual PCR NEGATIVE (Negative); SARS COV2 PCR INHOUSE NEGATIVE (Negative)
[2023-03-08] MEDS: ondansetron HCL 4 MG/2 ML VIAL IVPUSH (12:28)
[2023-03-08] MEDS: 0.9 % Sodium Chloride 1,000 ML 999 ML IV (12:28)
--- NOTE | 2023-03-08 12:30 | PC.NURSE ---
20gIV placed in right AC w/o difficulty - medication administered per provider order. urine obtained/sent to lab.
[2023-03-08 12:49] LABS: Appearance Urine Clear; Color Urine Dark Yellow; Glucose Urine UA Negative (Negative); Leukocyte Esterase Urine Small (1+) (Negative); Nitrite Urine Negative (Negative); PH 5.5 (5.0-9.0); Specific Gravity - Urine >= 1.030 (1.005-1.025); UMIC TRIGGER UACC YES; Urine Blood Trace (Negative); Urine Ketones Trace mg/dL (Negative); Urine Protein Trace mg/dL (Neg-Trace)
[2023-03-08 12:52] LABS: UPreg QC Valid YES; Urine Pregnancy NEGATIVE (NEGATIVE)
[2023-03-08 13:07] LABS: Bacteria Urine 2+ (None Seen); Hyaline Casts Urine >20 /LPF (0-2); UACC Culture Trigger YES; WBC Urine 0-5 /HPF (0-5)
--- NOTE | 2023-03-08 13:31 | PC.NURSE ---
will d/c pt when IV fluids completely administer per provider order. pt continues to remain in no apparent distress. call perez placed within reach.
--- NOTE | 2023-03-08 14:51 | PC.NURSE ---
IVF now administered. pt provided w/ d/c paperwork.
== END 2023-03-08 14:51 | disposition home or self-care (01) ==
PROVIDERS: Physician Assistant Medical; Emergency Provider Emergency Medicine Emergency Medical Services
DX: R11.2 Nausea with vomiting, unspecified (principal); Z20.822 Contact with and (suspected) exposure to COVID-19; Z20.828 Contact with and (suspected) exposure to other viral communicable diseases
CPT/HCPCS: 0241U; 36415; 80048; 80076; 81001; 81025; 83690; 85025; 87086; 96374; 99284; J2405

== ENCOUNTER → 2023-03-12 15:31 | Outpatient (AMB) | payer OTHER, SELFPAY ==
--- NOTE | 2023-03-12 15:31 | A.OFFVIS_ITS ---
Intake Intake Visit Reasons: Follow Up N/V Intake Note: Thad presents as a video call. CC: Nausea and vomiting. She states that she does have constipation and diarrhea. No pains in the stomach she states very rarely. Field Adjuster Required: No Allergies No Known Allergies Allergy (Verified 04/08/23 16:29) HPI HPI Comments History of Present Illness Details This is a 27-year-old female who presents as follow up nausea and vomiting. Initial visit 03/25: Patient states that on March 01, while she was at work, she suddenly developed nausea with vomiting as well as diarrhea. Symptoms started postprandially, insists that have persisted. She describes abdominal cramping with this too, especially left lower side. Diarrhea is loose to watery stools 2 to 3 times a day, after meals. Typically, the improved the cramping somewhat, but not always. Main has been severe for her to seek medical attention in the emergency room and urgent care multiple times in the last 4 weeks. Most recently, was seen at [facility] and had labs done that showed normal CBC, CMP (except hypokalemia), lipase. CT abdomen and pelvis was unremarkable per report. Images not available for review. test was negative. She states that the only thing that has worked so far has been promethazine suppositories. She was also given oral on NSAID drawn and dicyclomine which did not help her. She recalls a similar episode back in 2019, with abdominal cramping, nausea and vomiting but without any diarrhea. At that time, she underwent similar workup including an upper endoscopy at [facility], and was told that she likely had gastroenteritis. Between August 2021 earlier this month, she has been at her usual state of health. Patient denies any recent medication changes, travel, sick contacts. No changes to her water supply. Does not take any NSAIDs. Does not have any nocturnal symptoms, no blood in stool, no changes to appetite or unintentional weight loss. 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 Mostly notices green to yellow bile in her emesis. Oral intake is significantly limited. Has been consuming broth and noodles. Was seen in emergency room yesterday as well for IV hydration. Labs per her report for again normal. Also reports ongoing weight loss, this is a tele visit, she reports current weight of 144 lb. Main complaint is nausea and vomiting. Abdominal cramping seems to be triggered by the urge to vomit. Also continues to have diarrhea. No fevers, chills, night sweats. Workup so far includes normal CBC, BMP, LFTs, iron studies, B12, vitamin-D, folate. Normal CRP. Normal TSH. No stool leukocytes. Reassuring fecal calprotectin. No evidence of chronic infection. Stool H pylori antigen negative. Celiac serology negative. Normal immunoglobulins (checked for CVID). CT abdomen pelvis normal in February from the outside emergency room, documented in previous note. She is scheduled for an EGD and colonoscopy in 2 weeks time. EGD/colo 04/23/22: Impression: * Normal esophagus (biopsy) * Normal stomach (biopsy) * Normal duodenum (biopsy) * Limited visualisation of colon mucosa (biopsy) * Poor prep. Exam was not adequate for polyp detection. Path: A. Duodenum, biopsy: Duodenal mucosa with preserved villous architecture and focally increased intraepithelial lymphocytes (see comment). B. Stomach, random, biopsy: Gastric antral and body mucosa within normal limits; negative for Helicobacter pylori, intestinal metaplasia and dysplasia. C. Esophagus, biopsy: Squamocolumnar junctional mucosa with mild chronic inactive inflammation; negative for intestinal metaplasia and dysplasia. D. Colon, right, biopsy: Colonic mucosa within normal limits; negative for active, chronic or microscopic colitis. E. Colon, left, biopsy: Colonic mucosa within normal limits; negative for active, chronic or microscopic colitis. 05/07/2022: Reports most response with Carafate. States that the date she ran out of it, had 2-3 episodes of forceful vomiting. Also has noticed improvement in her mineralogy teacher nausea, ever since she has started taking Carafate before bedtime. Requests liquid formulation, as a tablet is quite large. Also continues to take omeprazole, but was not sure how much helpful it is. Endoscopy and pathology reviewed with the patient. 03/12/23: Was last seen in office in Apr 2022 after which she no-showed multiple appts. She was however able to establish care with gen surg and underwent lap jason for symptomatic GB polyps in October. Today, pt requested follow up with GI specifically for recurrent N/V. Visit was supposed to be in person but pt switched to tele as her car had broken down - however during this visit pt was in fact noted to be driving to somewhere and cell phone coverage remained spotty. Reports that since then, had been doing well since her surgery until Jan when her symptoms returned. Main complaint now is abd discomfort, with episodic N/V. Was seen in ER as well for the same over the weekend. REPLACED BY [facility] Surgical History History of laparoscopic cholecystectomy (11/14/22) Hx of colonoscopy History of esophagogastroduodenoscopy (EGD) History of wisdom tooth extraction Family History Father Cancer Maternal Grandmother Cancer Paternal Grandfather Cancer Social History Alcohol intake: never Patient Tobacco Use Status: Never used Tobacco Review of Systems Const All systems reviewed & are unremarkable except as noted in HPI and below Physical Exam Vital Signs: video visit: NAD speaking in full sentences no facial asymmetry, no dysphasia Assessment & Plan Assessment & Plan (1) Abdominal cramping: Code(s): R10.9 - Unspecified abdominal pain (2) Nausea & vomiting: Code(s): R11.2 - Nausea with vomiting, unspecified Qualifiers: Vomiting type: unspecified Qualified Code(s): R11.2 - Nausea with vomiting, unspecified Plan Unfortunately could not complete visit as her call dropped and despite reconnecting due to poor cell phone coverage we were unable to hear each other. Will request office to silke her for a visit - can be seen as urgent by a different provider. An exhausting work up so far negative for common and uncommon etiologies of abd pain with N/V including GERD, celiac, IBD, thyroid abnl, autoimmune enteritis, CVID, GOO, malabsorption, uncontrolled DM, chronic infection. 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 r/o with urine test last week. Other ddx include CVS however could not take detailed hx to determine if meets clinical criteria. Systemic sclerosis leading to dysmotility. On the same lines, delayed gastric emptying considered but ongoing use of zofran limits reliability of test results, plus FD can also cause abnl GES due to gastric stasis - no food in stomach noted on EGD however. As above, will request to rebook for complete evaluation. Coding Level of Care Code Tele Est Pt Level 2 (02780) Diagnoses Abdominal cramping R10.9 Nausea and vomiting, unspecified vomiting type R11.2 Vomiting type: unspecified
== END ==
PROVIDERS: Visit Provider Internal Medicine
DX: R10.9 Unspecified abdominal pain (principal); R11.2 Nausea with vomiting, unspecified
CPT/HCPCS: 99212

== ENCOUNTER → 2023-03-12 15:31 | Outpatient (BNVA) | payer OTHER, SELFPAY | PROVIDERS: Visit Provider Internal Medicine ==

== ENCOUNTER → 2023-04-08 16:20 | Outpatient (BNVA) | payer OTHER, SELFPAY | PROVIDERS: Visit Provider Nurse Practitioner Family | DX: K52.9 Noninfective gastroenteritis and colitis, unspecified (principal); K58.1 Irritable bowel syndrome with constipation; R11.2 Nausea with vomiting, unspecified; R10.9 Unspecified abdominal pain | CPT/HCPCS: 99212 ==

== ENCOUNTER → 2023-04-08 16:20 | Outpatient (AMB) | payer OTHER, SELFPAY ==
--- NOTE | 2023-04-08 16:23 | A.OFFVIS_ITS ---
Intake Vital Signs 04/08/23 16:24 Height 5 ft 3 in Weight 141 lb 1.533 oz BMI 25.0 BP 128/80 Blood Pressure Location Rt brachial Position Sitting Pulse 74 Intake Visit Reasons: chelle pt n/v Intake Note: Patient presents to in office follow up of nausea and vomiting. CC: Patient c/o nausea and vomiting and not been able to hold anything since 02/11. She states after she eats she vomits her food whole without digesting it. She also reports BUQ abdominal sharp pain sometimes, worst after eating. She states my whole stomach feels like is on fire. Per patient she has constipation and diarrhea. Today she reports it was her first BM after 5 days. 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 Masters 03/12/2023 Initial visit 02/27 8: Patient states that on March 01, while she was at work, she sudde nly developed naus ea with vomiting a s well as diarrhea . Symptoms starte d postprandially, insists that have persisted. She de scribes abdominal cramping with this too, especially l eft lower side. D iarrhea is loose t o watery stools 2 to 3 times a day, after meals. Typi stanley, the improve d the cramping mauri ewhat, but not alw ays. Tutu has bee n severe for her t o seek medical att ention in the [facility] room and urg ent care multiple times in the last 4 weeks. Most rec ently, was seen at [place] and had lab s done that showed normal CBC, CMP ( except hypokalemia ), lipase. CT abd omen and pelvis wa s unremarkable per report. Images n ot available for suman santiago. test was negative. She states that t he only thing that has worked so far has been prometha zine suppositories . She was also gi juan oral on NSAID drawn and dicyclom ine which did not help her. She rec alls a similar epi sode back in 2019, with abdominal cr amping, nausea and vomiting but with out any diarrhea. At that time, she underwent similar workup including an upper endoscopy at [facility], and was told that she lik pat had gastroente ritis. Between y 2021 earlier thi s month, she has b een at her usual s [place] [facility]. Patient denies an y recent medicatio n changes, travel, sick contacts. N o changes to her w ater supply. Does not take any NSAI Ds. Does not have any nocturnal symp toms, no blood in stool, no changes to appetite or uni ntentional weight loss. 04/12/2022 : States that cont inues to have fernando y morning nausea a nd vomiting, irres pective of what sh e has the night be fore. Mostly noti pearl green to yello w bile in her emes is. Oral intake i s significantly li mited. Has been c onsuming broth and noodles. Was see n in emergency kaitlin m yesterday as wel l for IV hydration . Labs per her re port for again nor mal. Also reports ongoing weight lo ss, this is a tele visit, she report s current weight o f 144 lb. Main com plaint is nausea a nd vomiting. Abdo hayes cramping see ms to be triggered by the urge to vo becca. Also continu es to have diarrhe a. No fevers, chi lls, night sweats. Workup so far inc ludes normal CBC, BMP, LFTs, iron st udies, B12, vitami n-D, folate. Norm al CRP. Normal TS H. No stool leuko cytes. Reassuring fecal calprotecti n. No evidence of chronic infection . Stool H pylori antigen negative. Celiac serology n egative. Normal i mmunoglobulins (ch ecked for CVID). CT abdomen pelvis normal in Novem r from the outside emergency room, d ocumented in previ ous note. She is scheduled for an E GD and colonoscopy in 2 weeks time. EGD/colo 04/23/22 : Impression: * No rmal esophagus (bi opsy) * Normal stom ach (biopsy) * Norm al duodenum (biops y) * Limited visual isation of colon m ucosa (biopsy) * Po or prep. Exam was not adequate for p olyp detection. Pa th: A. Duodenum, biopsy: Duodenal mucosa with preser shady villous walter ecture and focally increased intraep ithelial lymphocyt es (see comment). B. Stomach, rando m, biopsy: Gastri c antral and body mucosa within norm al limits; negativ e for Helicobacter pylori, intestina l metaplasia and d ysplasia. C. Eso phagus, biopsy: S quamocolumnar junc tional mucosa with mild chronic inac tive inflammation; negative for inte stinal metaplasia and dysplasia. D. Colon, right, bi opsy: Colonic muc paige within normal limits; negative f or active, chronic or microscopic co litis. E. Colon, left, biopsy: Col onic mucosa within normal limits; ne gative for active, chronic or micros copic colitis. : Reports most response with Carafate. States that the date she ran out of it, renee d 2-3 episodes of forceful vomiting. 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 Reques ts liquid formulat ion, as a tablet i s quite large. Al so continues to ta ke omeprazole, but was not sure how much helpful it is . Endoscopy and pa thology reviewed w ith the patient. 03/12/23: Was la st seen in office in Apr 2022 after which she no-showe d multiple appts. She was however ab le to establish ca re with gen surg a nd underwent lap c hole for symptomat ic GB polyps in ly. Reports that since then, had be en doing well sinc e her surgery TODAY'S VISIT Patient is here today for requested visit. As mentioned above in HPI patient has been seen previously by Dr. Masters. Last visit was a tele visit on March 12. Patient reported feeling fine then. However patient reports seen in the ER last month for severe nausea and vomiting. Patient reports that what ever she eats she is not able to keep it down. Patient states that only mashed potatoes and broth is what she can keep it down. Patient was found to have multiple polyps in her gallbladder and had gallbladder surgery back in October of 2022. Patient reports that she has been taking sucralfate 3 to 4 times a day. Unable to move her bowels. Bowel movements every 4-5 days. Patient reports that she had those symptoms for over a year now. Symptoms has not changed since patient's gallbladder surgery. Patient denies smoking, drinking alcohol or using any illicit drugs. Patient also does not smoke any marijuana. Patient re ports that Phenergan helped in the past with her nausea and vomiting. Reports that Zofran has been helpful but is not as much. Patient states that she takes famotidine, started taking about 3 days ago to help with symptoms. Patient is taking omeprazole every morning and does not find it helpful. Patient reports severe dyspepsia without dysphagia or odynophagia. [facility] Surgical History History of laparoscopic cholecystectomy (11/14/22) Hx of colonoscopy History of esophagogastroduodenoscopy (EGD) History of wisdom tooth extraction Family History Father Cancer Maternal Grandmother Cancer Paternal Grandfather Cancer Social History Alcohol intake: never Patient Tobacco Use Status: Never used Tobacco Review of Systems Const Denies weight gain and Denies weight loss ENT Reports no additional complaints, Denies dysphagia and Denies odynophagia Card Reports no additional complaints Resp Reports no additional complaints GI Reports abdominal pain (Epigastric), Denies belching, Denies melena, Reports bloating, Denies change in bowel habits, Reports constipation, Denies dysphagia, Denies excessive flatus, Denies dyspepsia, Reports heartburn, Denies diarrhea, Denies loose stools, Reports nausea, Denies odynophagia and Denies vomiting Reports no additional complaints Musc Reports no additional complaints Neuro Reports no additional complaints Psych Reports no additional complaints Endo Reports no additional complaints Physical Exam Vital Signs: BMI result Body Mass Index 25.0 Const General: healthy appearing, no acute distress and well developed Orientation/consciousness: patient oriented x3 HEENT Head: Yes normal to inspection, Yes normocephalic and Yes atraumatic Face and sinus: Yes normal facial exam Mouth: Normal oral and palatal mucosa present Throat: Yes posterior oropharynx normal, Yes tonsils normal and Yes uvula midline Eyes General: appearance normal, both eyes and all related structures Neck Neck: Yes normal visual inspection, Yes full ROM and Yes trachea midline Thyroid: Thyroid normal Resp Effort & Inspection: normal respiratory effort, able to speak in complete sentences, no tracheal deviation and symmetric chest movement Auscultation: clear to auscultation bilaterally Cardio Rate: regular rate GI Inspection: Yes normal to inspection and No distended Palpation (GI): Soft to palpation, not firm, nontender and No hepatosplenomegaly present Auscultation: normal bowel sounds General: Yes no CVA tenderness Back/Spine/Pelvis Back: no CVA tenderness Skin General skin exam: elasticity normal, turgor normal and dry skin Neuro General: patient oriented x3 Psych Appearance: grossly normal Mental Status: mental status grossly normal Assessment & Plan Assessment & Plan (1) Nausea & vomiting: Code(s): R11.2 - Nausea with vomiting, unspecified Qualifiers: Vomiting type: unspecified Qualified Code(s): R11.2 - Nausea with vomiting, unspecified (2) Chronic diarrhea: Code(s): K52.9 - Noninfective gastroenteritis and colitis, unspecified (3) Irritable bowel syndrome: Code(s): K58.9 - Irritable bowel syndrome without diarrhea Qualifiers: Irritable bowel syndrome type: with constipation Qualified Code(s): K58.1 - Irritable bowel syndrome with constipation (4) Abdominal cramping: Code(s): R10.9 - Unspecified abdominal pain Plan Will change PPI to Nexium. Patient will take sucralfate twice a day as noon and at bedtime. Continue avoiding dietary triggers. Will send patient for gastric emptying study. Patient will need to move her bowels better. Will start her on bisacodyl tablets. Patient will need to increase fluid intake and activity to promote better bowel motility. Patient will call the office if she continues to be constipated. Will check more blood work. Differentials include gas troparesis, the late colonic emptying, celiac disease, malabsorption unlikely as patient is constipated, Crohn's. 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 She will return in 4 weeks, sooner on as needed basis. Patient is agreeable to this plan and verbalizes understanding of instructions. She was given the opportunity to ask questions and all questions answered. Thank you for allowing me to participate in her care Orders: Orders NM gastric emptying study Today K21.9 - Gastro-esophageal reflux disease without esophagitis Lipase Today R10.9 - Unspecified abdominal pain Vitamin B12 and Folate Today R19.7 - Diarrhea, unspecified Gliadin Ab Panel Today R10.11 - Right upper quadrant pain Gastrin Today R11.2 - Nausea with vomiting, unspecified C Reactive Protein Today K58.9 - Irritable bowel syndrome without diarrhea Vitamin D 25-OH (D2 and D3) Today E55.9 - Vitamin D deficiency, unspecified Erythrocyte Sedimentation Rate Today K52.9 - Noninfective gastroenteritis and colitis, unspecified, K58.9 - Irritable bowel syndrome without diarrhea, R10.9 - Unspecified abdominal pain, R11.2 - Nausea with vomiting, unspecified Medications: New bisacodyl (Dulcolax (bisacodyl)) 10 mg (2 x 5 mg) PO BEDTIME 60 tabs 4RF promethazine 25 mg AR BID 12 ea 1RF bisacodyl (Dulcolax (bisacodyl)) 10 mg (2 x 5 mg) PO BEDTIME 60 tabs 4RF bisacodyl (Dulcolax (bisacodyl)) 10 mg (2 x 5 mg) PO BEDTIME 60 tabs 4RF esomeprazole magnesium (Nexium) 40 mg PO DAILY 30 caps 5RF K21.9 - Gastro- esophageal reflux disease without esophagitis esomeprazole magnesium (Nexium) 40 mg PO DAILY 30 caps 5RF K21.9 - Gastro- esophageal reflux disease without esophagitis esomeprazole magnesium (Nexium) 40 mg PO DAILY 30 caps 5RF K21.9 - Gastro- esophageal reflux disease without esophagitis Changed From sucralfate 10 mL PO QIDACHS 1,000 mL 1RF To sucralfate 10 mL PO BID 1,000 mL 1RF Refilled promethazine 25 mg AR BID 12 ea 1RF sucralfate 10 mL PO QIDACHS 1,000 mL 1RF promethazine 25 mg AR BID 12 ea 1RF Discontinued omeprazole Discontinued Reason: Doctor's Order 20 mg PO DAILY 30 caps 1RF Coding Level of Care Code Est Pt Level 4 (82858) Diagnoses Nausea and vomiting, unspecified vomiting type R11.2 Vomiting type: unspecified Chronic diarrhea K52.9 Irritable bowel syndrome with constipation K58.1 Irritable bowel syndrome type: with constipation Abdominal cramping R10.9 Time Spent (min) 40 Comment 25 minute spent with patient and additional 15 minutes spent reviewing her record
[2023-04-08 16:24] VITALS: BP 128/80; PULSE 74; BMI 25.0
== END ==
PROVIDERS: Visit Provider Nurse Practitioner Family
DX: R11.2 Nausea with vomiting, unspecified (principal); K52.9 Noninfective gastroenteritis and colitis, unspecified; K58.1 Irritable bowel syndrome with constipation; R10.9 Unspecified abdominal pain
CPT/HCPCS: 99214

== ENCOUNTER 2023-04-10 12:07 | Outpatient (REF) | payer OTHER, SELFPAY ==
[2023-04-10 14:28] LABS: C Reactive Protein 0.11 mg/dL (< or = 0.50); Lipase 24 U/L (8-78)
[2023-04-10 14:53] LABS: Erythrocyte Sedimentation Rate 5 MM/HR (0-20)
[2023-04-10 15:10] LABS: Vitamin B12 665 pg/mL (200-900)
[2023-04-14 14:59] LABS: Vitamin D 25-OH, D2 <4 ng/mL; Vitamin D 25-OH, D3 33 ng/mL; Vitamin D 25-OH, Total 33 ng/mL (30-100)
[2023-04-15 07:24] LABS: Gliadin Deamidated IgA Ab 4.2 U/mL; Gliadin Deamidated IgG Ab <1.0 U/mL
[2023-04-15 15:58] LABS: Gastrin 116 pg/mL (<=100)
== END 2023-04-10 12:08 | disposition home or self-care (01) ==
LOC: HO.LAB 12:07
PROVIDERS: Visit Provider Nurse Practitioner Family
DX: R10.11 Right upper quadrant pain (principal); R11.2 Nausea with vomiting, unspecified; K52.9 Noninfective gastroenteritis and colitis, unspecified; E55.9 Vitamin D deficiency, unspecified
CPT/HCPCS: 36415; 82306; 82607; 82746; 82941; 83690; 85652; 86140; 86258

== ENCOUNTER → 2023-05-06 07:56 | Outpatient (REF) | payer OTHER, SELFPAY ==
--- NOTE | ~2023-05-06 | NM_ITS ---
EXAMINATION: PA RADIONUCLIDE SOLID FOOD GASTRIC EMPTYING 4-HOUR STUDY CLINICAL INFORMATION: atelectasis without esophagitis. GE reflux disease without esophagitis COMPARISON: None TECHNIQUE: A standard meal consisting of 4 oz of Egg Beaters brand tagged with 1 microcuries Tc-99m Sulfur Colloid, 8 oz water and 1 1/2 slices of toast with jelly was administered orally to the patient. Images were obtained using a dual head gamma camera in the anterior and posterior projections over of the stomach immediately post ingestion and at hourly intervals up to 4 hours post ingestion. The anterior and posterior counts at each time interval were averaged using the geometric mean and expressed as percentage of the immediate post ingestion counts. FINDINGS: There is good visualization of activity in the stomach immediately post ingestion. As the study progresses, there is good clearance of activity from the stomach and visualization of progressively increasing small bowel activity. By the end of the study, there is almost no retention noted in the stomach. Retention in the stomach at each time interval was: 1 hour 91% (normal 37%-90%) 2 hours 81% (normal 30%-60%) 3 hours 48% 4 hours 34% (normal 0%-10%) PA/PA gastric emptying study IMPRESSION: Abnormal 4-hour solid food gastric emptying study. For solid meal, rapid gastric emptying is less than 30% at 60 minutes. Delayed gastric emptying criteria is more than 60% remaining at 120 minutes or more than 10% at 240 minutes. The 4-hour value is the best discriminator of a normal or abnormal result). Gastric emptying study grading per JNMT Consensus Recommendations in 2008 (https://tech.snmjournals.org/content/36/44) Grade 1 (mild retention): 11-20% at 4h Grade 2 (moderate retention): 21-35% at 4h Grade 3 (severe retention): 36-50% at 4h Grade 4 (very severe retention): >50% retention at 4h
== END ==
LOC: HO.NUCMED 07:56
PROVIDERS: Visit Provider Nurse Practitioner Family
DX: K21.9 Gastro-esophageal reflux disease without esophagitis (principal)
CPT/HCPCS: 78264; A9541

== ENCOUNTER 2023-12-24 12:56 | Outpatient (AMB) | payer OTHER, SELFPAY ==
--- NOTE | 2023-12-24 12:57 | A.OFFVIS_ITS ---
Intake Visit Reasons: Discuss Symptoms Intake Note: Ad presents as a telehealth to discuss options of symptoms. CC: She states that she wants to know if there are other options because she has pains in the stomach and lots of nausea and vomiting. She gets both constipation and diarrhea depending how her body is feeling that day. 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 Initial visit 03/25: Patient states that on March 01, while she was at work, she suddenly developed nausea with vomiting as well as diarrhea. Symptoms started postprandially, insists that have persisted. She describes abdominal cramping with this too, especially left lower side. Diarrhea is loose to watery stools 2 to 3 times a day, after meals. Typically, the improved the cramping somewhat, but not always. Main has been severe for her to seek medical attention in the emergency room and urgent care multiple times in the last 4 weeks. Most recently, was seen at [place] and had labs done that showed normal CBC, CMP (except hypokalemia), lipase. CT abdomen and pelvis was unremarkable per report. Images not available for review. test was negative. She states that the only thing that has worked so far has been promethazine suppositories. She was also given oral on NSAID drawn and dicyclomine which did not help her. She recalls a similar episode back in 2019, with abdominal cramping, nausea and vomiting but without any diarrhea. At that time, she underwent similar workup including an upper endoscopy at [facility], and was told that she likely had gastroenteritis. Between August 2021 earlier this month, she has been at her usual state of health. Patient denies any recent medication changes, travel, sick contacts. No changes to her water supply. Does not take any NSAIDs. Does not have any nocturnal symptoms, no blood in stool, no changes to appetite or unintentional weight loss. 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 Mostly notices green to yellow bile in her emesis. Oral intake is significantly limited. Has been consuming broth and noodles. Was seen in emergency room yesterday as well for IV hydration. Labs per her report for again normal. Also reports ongoing weight loss, this is a tele visit, she reports current weight of 144 lb. Main complaint is nausea and vomiting. Abdominal cramping seems to be triggered by the urge to vomit. Also continues to have diarrhea. No fevers, chills, night sweats. Workup so far includes normal CBC, BMP, LFTs, iron studies, B12, vitamin-D, folate. Normal CRP. Normal TSH. No stool leukocytes. Reassuring fecal calprotectin. No evidence of chronic infection. Stool H pylori antigen negative. Celiac serology negative. Normal immunoglobulins (checked for CVID). CT abdomen pelvis normal in February from the outside emergency room, documented in previous note. She is scheduled for an EGD and colonoscopy in 2 weeks time. EGD/colo 04/23/22: Impression: * Normal esophagus (biopsy) * Normal stomach (biopsy) * Normal duodenum (biopsy) * Limited visualisation of colon mucosa (biopsy) * Poor prep. Exam was not adequate for polyp detection. Path: A. Duodenum, biopsy: Duodenal mucosa with preserved villous architecture and focally increased intraepithelial lymphocytes (see comment). B. Stomach, random, biopsy: Gastric antral and body mucosa within normal limits; negative for Helicobacter pylori, intestinal metaplasia and dysplasia. C. Esophagus, biopsy: Squamocolumnar junctional mucosa with mild chronic inactive inflammation; negative for intestinal metaplasia and dysplasia. D. Colon, right, biopsy: Colonic mucosa within normal limits; negative for active, chronic or microscopic colitis. E. Colon, left, biopsy: Colonic mucosa within normal limits; negative for active, chronic or microscopic colitis. 05/07/2022: Reports most response with Carafate. States that the date she ran out of it, renee d 2-3 episodes of forceful vomiting. Also has noticed improvement in her early head start director nausea, ever since she has started taking Carafate before bedtime. Requests liquid formulation, as a tablet is quite large. Also continues to take omeprazole, but was not sure how much helpful it is. Endoscopy and pathology reviewed with the patient. 03/12/23: Was last seen in office in Apr 2022 after which she no-showed multiple appts. She was however able to establish care with gen surg and underwent lap jason for symptomatic GB polyps in October. Today, pt requested follow up with GI specifically for recurrent N/V. Visit was supposed to be in person but pt switched to tele as her car had broken down - however during this visit pt was in fact noted to be driving to somewhere and cell phone coverage remained spotty. Reports that since then, had been doing well since her surgery until Jan when her symptoms returned. Main complaint now is abd discomfort, with episodic N/V. Was seen in ER as well for the same over the weekend. 12/24/23: Was lost to follow up. Was diagnosed with idiopathic gastroparesis earlier this year. With the caveat that this study was done with zofran and phenergan on board. Pt has been on predominantly liquid diet but has not been helpful, still gets nauseous post food. Did not try reglan as prev has had unpleasant experience with it when it was given in the ER last year. [facility] Surgical History History of laparoscopic cholecystectomy (11/14/22) Hx of colonoscopy History of esophagogastroduodenoscopy (EGD) History of wisdom tooth extraction Family History Father Cancer Maternal Grandmother Cancer Paternal Grandfather Cancer Social History Alcohol intake: never Patient Tobacco Use Status: Never used Tobacco Smoked in Last 30 Days: No Use of substances other than those prescribed or required for medical reasons: No Advance Directives: No Advance Directives Information Provided: No Review of Systems Const All systems reviewed & are unremarkable except as noted in HPI and below Physical Exam Vital Signs: video tele NAD Able to speak in full sentences no dysarthria Assessment & Plan Assessment & Plan (1) Gastroparesis: Code(s): K31.84 - Gastroparesis Category: Medical (2) Irritable bowel syndrome: Code(s): K58.9 - Irritable bowel syndrome, unspecified Category: Medical Qualifiers: Irritable bowel syndrome type: with constipation Qualified Code(s): K58.1 - Irritable bowel syndrome with constipation (3) Abdominal cramping: Code(s): R10.9 - Unspecified abdominal pain Category: Medical (4) Nausea & vomiting: Code(s): R11.2 - Nausea with vomiting, unspecified Category: Medical Qualifiers: Vomiting type: unspecified Qualified Code(s): R11.2 - Nausea with vomiting, unspecified Plan Reviewed with the pt that sx consistent with idiopathic gastroparesis however unable to get to a stable med regimen with snf symptom control. Continues to have flares requiring ER visits and time off work. Prev has been reluctant to stay on reglan due to side effects. Discussed that would recommend trying LIQUID reglan low dose with drug holiday to see if that is better tolerated. We also reviewed that possible other differentials such as MCAS, abd migraines, porphyria etc leading to episodic abd pain, N,V still remain, love as GES was done with active use of meds that may delay gastric emptying. Labs will be ordered. Will also refer her to dedicated motility center for second opinion and potentially antroduodenal manometry. Plan - Small frequent meals - Adhere to small particle diet for better gastric emptying - Reglan 5 ml BID M-F with interruption on Sat and Sun - Stay upright for 45-60 mins post meals - Since delayed gastric emptying can predispose to reflux, best to cont nexium - Lasb as below - Referral to [facility] motility center Follow up after seen at . Orders: Orders Complement C4 12/24/23 R10.9 - Unspecified abdominal pain Tryptase 12/24/23 R10.9 - Unspecified abdominal pain Referrals Gastroenterology Referral K58.1 - Irritable bowel syndrome with constipation, R11.2 - Nausea with vomiting, unspecified, K31.84 - Gastroparesis Medications: New metoclopramide HCl Take twice a day x 5 days then take a holiday for 2 days; repeat. 5 mg (5 mL) PO BID 300 mL 0RF 30 days Discontinued metoclopramide HCl Take 15 minutes before meals Discontinued Reason: Doctor's Order 5 mg PO TIDWMEAL 90 tabs 0RF K31.84 - Gastroparesis, R11.0 - Nausea Coding Level of Care Code Tele Est Pt Level 4 (54310) Complex EM visit Add On G2211 Diagnoses Gastroparesis K31.84 Irritable bowel syndrome with constipation K58.1 Irritable bowel syndrome type: with constipation Abdominal cramping R10.9 Nausea and vomiting, unspecified vomiting type R11.2 Vomiting type: unspecified
== END 2023-12-24 14:29 | disposition home or self-care (01) ==
LOC: HO.HGI 12:56
PROVIDERS: Visit Provider Internal Medicine
DX: K31.84 Gastroparesis (principal); K58.1 Irritable bowel syndrome with constipation; R10.9 Unspecified abdominal pain; R11.2 Nausea with vomiting, unspecified
CPT/HCPCS: 99214; G2211

== ENCOUNTER → 2023-12-24 12:56 | Outpatient (BNVA) | payer OTHER, SELFPAY | PROVIDERS: Visit Provider Internal Medicine ==

== ENCOUNTER 2024-04-26 16:36 | Emergency (ER) | payer OTHER, SELFPAY ==
[2024-04-26 17:00] VITALS: BP 127/81; PULSE 82; RESP 20; TEMP 36.3; O2SAT 98; BMI 23.0
[2024-04-26 18:10] LABS: MANUAL DIFF FLAG NO
[2024-04-26 18:11] LABS: Basophils Absolute Auto 0.1 X10*3/uL (0.0-0.2); Eosinophils Absolute Auto 0.2 X10*3/uL (0.0-0.4); Eosinophils Percent Auto 4.6 % (0-4); Hematocrit 38.9 % (37.0-47.0); Hemoglobin 13.3 g/dl (12.0-16.0); Lymphocytes Absolute Auto 1.4 X10*3/uL (1.2-4.9); Lymphocytes Percent Auto 27.6 % (20-40); Mean Corpuscular HGB Conc 34.2 g/dl (31.0-35.0); Mean Corpuscular Hemoglobin 28.7 pg (27.0-33.0); Mean Corpuscular Volume 83.8 fL (80.0-98.0); Mean Platelet Volume 10.2 fL (9.4-12.3); Monocytes Absolute Auto 0.4 X10*3/uL (0.1-1.2); Neutrophils Percent Auto 59.8 % (45-73); Platelet Count 230 X10*3/uL (160-400); Red Blood Count 4.64 X10*6/uL (4.20-5.50); Red Cell Distribution Width 12.4 % (11.0-16.0)
[2024-04-26 18:28] LABS: Alanine Aminotransferase 19 U/L (0-31); Alkaline Phosphatase 58 U/L (39-117); Anion Gap 12 (12-20); Aspartate Amino Transferase 25 U/L (5-31); Bilirubin Total 0.6 mg/dL (0.0-1.0); Blood Urea Nitrogen 10 mg/dL (9-16); Calcium 8.6 mg/dL (8.4-10.2); Carbon Dioxide 26 mmol/L (22-29); Chloride 109 mmol/L (96-108); Creatinine Clr Calc Pharmacy 93.6; Estimated Glomerular Filt Rate > 60; Glucose Random 95 mg/dL (60-115); Potassium 2.9 mmol/L (3.3-5.1); Sodium 144 mmol/L (135-145); Total Protein 6.6 g/dL (6.5-8.0)
[2024-04-26 18:50] LABS: Influenza A PCR NEGATIVE (Negative); Influenza B PCR NEGATIVE (Negative); Resp Syncy Virus RNA Qual PCR NEGATIVE (Negative); SARS COV2 PCR INHOUSE NEGATIVE (Negative)
--- NOTE | 2024-04-26 22:57 | ED.NAVMDI ---
HPI - Nausea/Vomiting/Diarrhea General Chief complaint: Nausea/Vomiting/Diarrhea Stated complaint: deydration,vomiting Time Seen by Provider: 04/26/24 22:28 Source: patient Mode of arrival: ambulatory Limitations: no limitations History of Present Illness ED Provider: Dr. Konstantin Nicolas HPI Narrative: 29-year-old female with a history of gastroparesis who presents emergency department for evaluation of nausea, vomiting, diarrhea with symptoms starting on , 04/22/2024 (4 days prior to arrival). Patient states that for the 1st 2 days she had nausea and vomiting every 15 minutes and was not able to hold down any food or fluid. She also states she had 3 episodes of diarrhea per day. She states that her symptoms did improve on Friday (2 days prior to arrival), however the last 2 days her nausea and vomiting has come back and she has been vomiting every 15 minutes with unable to hold down any food or fluid. She states she was feeling ever she stands. She was had chills but no fever abdominal pain. She states that her symptoms are similar to her gastroparesis. Patient states that she does take Zofran ODT but this was not effective in controlling her symptoms. She states she was had to come to the emergency department in the past for IV fluids and IV antiemetics. Patient has been evaluated by our mosaic worker, Dr. Masters had an extensive workup which included endoscopy colonoscopy and small-bowel follow-through with no clear etiology. She was also had a gastric emptying study on 05/06/2023 which revealed abnormal 4 hours solid food gastric emptying study with greater than 50% retention at 4 hours Related Data Previous Rx's ?Medication ?Instructions ?Recorded loperamide 2 mg capsule (Imodium 2 mg PO Q4H PRN loose stool #14 06/27/22 A-D) caps esomeprazole magnesium 40 mg 40 mg PO DAILY #30 caps 04/08/23 capsule,delayed release (Nexium) bisacodyl 5 mg tablet,delayed 10 mg (2 x 5 mg) PO BEDTIME #60 12/08/23 release (Dulcolax (bisacodyl)) tabs metoclopramide HCl 5 mg/5 mL oral 5 mg (5 mL) PO BID 30 days #300 mL 12/24/23 solution sucralfate 100 mg/mL oral 10 ml PO BID #1,000 mL 01/26/24 suspension ondansetron 4 mg disintegrating 4 mg PO BID PRN nausea and 04/09/24 tablet vomiting 30 days #20 tabs promethazine 12.5 mg rectal 12.5 mg [place] BID #12 ea 04/09/24 suppository Allergies Allergy/AdvReac Type Severity Reaction Status Date / Time No Known Allergies Allergy Verified 04/26/24 17:01 Review of Systems Review of Systems: Yes all other systems are reviewed and are negative REPLACED BY [facility] Past Medical History REPLACED BY [facility] Narrative: Social history: She denies tobacco, alcohol and drug use Surgical History History of laparoscopic cholecystectomy (11/14/22) Hx of colonoscopy History of esophagogastroduodenoscopy (EGD) History of wisdom tooth extraction Family History Family History Father Cancer Maternal Grandmother Cancer Paternal Grandfather Cancer Social History Social History Alcohol intake: never Patient Tobacco Use Status: Never used Tobacco Smoked in Last 30 Days: No Use of substances other than those prescribed or required for medical reasons: No Advance Directives: No Advance Directives Information Provided: No Physical Exam Vital Signs: Vital Signs: Last Vital Signs Temp 98.5 F 04/27/24 02:00 Pulse 92 04/27/24 02:00 Resp 17 04/27/24 02:00 BP 117/77 04/27/24 02:00 Pulse Ox 98 04/27/24 02:00 O2 Del Method Room Air 04/27/24 02:00 BMI result Body Mass Index 23.0 Vital signs were Exam: General: Awake, alert in no distress Head: Normocephalic, atraumatic EENT: PERRL, Lids normal, sclera normal, conjunctiva normal, nose normal , ears normal, throat without erythema or exudates Neck: Supple, no adenopathy Lung: breath sounds symmetric, no wheezing, rales or rhonchi Chest: symmetric movement, nontender Heart: regular rate and rhythm, normal S1, S2 no murmurs or rubs Abdomen: soft, non-tender, nondistended, normal bowel sounds Back: no vertebral tenderness, no CVAT Extremities: no deformities, moves all extremities symmetrically Neuro: Awake, alert, oriented, normal speech, cranial nerves intact, moves all extremities symmetrically Psych: Pleasant, cooperative Medications Administered Discontinued Medications Generic Name Dose Route Start Last Admin Trade Name Jeremy PRN Reason Stop Dose Admin Famotidine 20 mg 04/27/24 02:18 04/27/24 02:34 Famotidine/Pf 20 Mg/2 Ml Vial IVPUSH 04/27/24 02:19 20 mg ONCE ONE Administration Potassium Chloride 10 meq in 100 mls @ 100 mls/hr 04/26/24 23:15 04/27/24 00:35 Potassium Chloride/H20 IV 04/27/24 01:14 Infused Q1H SHILPA Infusion Sodium Chloride 1,000 mls @ 999 mls/hr 04/26/24 23:19 04/27/24 01:32 Ns IV 04/27/24 00:19 Infused .Q1H1M STA Infusion Sodium Chloride 1,000 mls @ 999 mls/hr 04/26/24 23:20 04/27/24 01:40 Ns IV 04/27/24 00:20 Infused .Q1H1M STA Infusion Ondansetron HCl 4 mg 04/26/24 23:09 04/26/24 23:23 Ondansetron Hcl 4 Mg/2 Ml Vial IVPUSH 04/26/24 23:10 4 mg ONCE ONE Administration Ondansetron HCl 4 mg 04/27/24 01:31 04/27/24 01:38 Ondansetron Hcl 4 Mg/2 Ml Vial IVPUSH 04/27/24 01:32 4 mg ONCE ONE Administration Medical Decision Making Medical Decision Making MDM Narrative: 29-year-old female with a history of gastroparesis who presents emergency department for evaluation of nausea, vomiting, diarrhea with symptoms starting on , 04/22/2024 (4 days prior to arrival). Patient's symptoms did improve however with the past 2 days the nausea and vomiting has returned without diarrhea or abdominal pain. Patient was not been able to hold down food or fluid, she was feeling lightheaded, dizzy and weak. She was had no abdominal pain. Vital signs were normal. Exam was unremarkable. Differential diagnosis: ?Includes but is not limited to gastroparesis, cyclic vomiting syndrome, viral syndrome, electrolyte abnormalities, anemia Course: 23:23 Patient's laboratory evaluation did leave a low potassium 2.9 an elevated chloride of 109 consistent with her nausea vomiting and diarrhea. He was already get normal saline IV x2 L and potassium chloride 10 mEq/100 mL over 1 hour x2. Patient's nausea was treated with Zofran 4 mg IV. 03:49 The patient did not want the 2nd bag of potassium and states she can not taking oral potassium. Patient did complain of acid reflux symptoms and she was given Pepcid 20 mg IV. She was also given a 2nd dose of Zofran 4 mg IV. Despite this treatment she states she was not feeling significantly better but she does want to go home. The patient states that she was Zofran ODT and omeprazole at home and I did tell her to take these medications. Patient was given printed and verbal instructions and discharged. Admission/Observation Consideration of admission/observation: Escalation of care including admission/observation considered (Yes) Lab Data My independent interpretation patient's laboratory evaluation as follows: CBC was normal. CMP revealed an elevated chloride of 109 and a low potassium 2.9 otherwise unremarkable. COVID-19, influenza and RSV were negative. Labs are consistent with nausea vomiting and diarrhea. 04/26/24 18:01 04/26/24 18:01 Labs: Lab Results 04/26/24 Range/Units 18:01 WBC 5.0 (4.8-10.8) X10*3/uL RBC 4.64 (4.20-5.50) X10*6/uL Hgb 13.3 (12.0-16.0) g/dl Hct 38.9 (37.0-47.0) % MCV 83.8 (80.0-98.0) fL MCH 28.7 (27.0-33.0) pg MCHC 34.2 (31.0-35.0) g/dl RDW 12.4 (11.0-16.0) % Plt Count 230 (160-400) X10*3/uL MPV 10.2 (9.4-12.3) fL Immature Gran % (Auto) 0.0 (0.0-0.4) % Neut % (Auto) 59.8 (45-73) % Lymph % (Auto) 27.6 (20-40) % [place] % (Auto) 7.0 (2-11) % Eos % (Auto) 4.6 H (0-4) % Baso % (Auto) 1.0 (0-2) % Lymph # (Auto) 1.4 (1.2-4.9) X10*3/uL [place] # (Auto) 0.4 (0.1-1.2) X10*3/uL Eos # (Auto) 0.2 (0.0-0.4) X10*3/uL Baso # (Auto) 0.1 (0.0-0.2) X10*3/uL Abs Immat Gran (auto) 0.00 (0.00-0.03) X10*3/uL Absolute Neuts (auto) 3.0 (2.0-8.3) x10*3/uL Absolute Nucleated RBC 0.000 (0.0-0.012) X10*3/uL Nucleated RBC % (auto) 0.0 (0.0-0.2) /100WBC Sodium 144 (135-145) mmol/L Potassium 2.9 L* (3.3-5.1) mmol/L Chloride 109 H (96-108) mmol/L Carbon Dioxide 26 (22-29) mmol/L Anion Gap 12 (12-20) BUN 10 (9-16) mg/dL Creatinine 0.72 (0.5-1.4) mg/dL Estim Creat Clear Calc 93.6 Estimated GFR > 60 Random Glucose 95 (60-115) mg/dL Calcium 8.6 D (8.4-10.2) mg/dL Total Bilirubin 0.6 (0.0-1.0) mg/dL AST 25 (5-31) U/L ALT 19 (0-31) U/L Alkaline Phosphatase 58 (39-117) U/L Total Protein 6.6 (6.5-8.0) g/dL Albumin 4.0 (3.5-5.0) g/dL Lipase 19 (8-78) U/L Influenza Type A (PCR) NEGATIVE (Negative) Influenza Type B (PCR) NEGATIVE (Negative) RSV RNA Qual (PCR) NEGATIVE (Negative) SARS-CoV-2 RNA (RT-PCR) NEGATIVE (Negative) Chronic Conditions Patient?s care impacted by: Other (Gastroparesis) Discharge Plan Discharge Clinical Impression: Gastroparesis, Nausea & vomiting, Acute hypokalemia Patient Disposition: Home, Self-Care Instructions: Gastroparesis (ED) Additional Instructions: Your blood work did reveal a low potassium of 2.9 (normal is 3.3 to 5.1). You did receive 1 dose of IV potassium in the emergency department. Your blood work was otherwise unremarkable. Your COVID-19, influenza and RSV tests were negative. At this time I believe that your symptoms are caused by your gastroparesis. Take your Zofran ODT 4 mg pills, 1 pill dissolved in your mouth every 8 hours as needed for nausea and vomiting. Take Prilosec (omeprazole) 20 mg pills, 1 pill once a day for 2-4 weeks. ?This medication shuts off your acid production and lets the inflammation in your stomach and esophagus heal. Follow-up with your doctor in 2 days. Please return to the emergency department if your symptoms get worse or if you develop any symptoms that are concerning to you. Prescriptions: No Action loperamide [Imodium A-D] 2 mg capsule 2 mg PO Q4H PRN (Reason: loose stool) Qty: 14 0RF Rx Instructions: Take 4 mg in the morning, followed by 2 mg after each loose stool. You can take up to a maximum of 16 mg/day. bisacodyl [Dulcolax (bisacodyl)] 5 mg tablet,delayed release (DR/EC) 10 mg PO BEDTIME Qty: 60 4RF sucralfate 100 mg/mL suspension 10 ml PO BID Qty: 1000 1RF promethazine 12.5 mg suppository 12.5 mg WV BID Qty: 12 1RF ondansetron 4 mg tablet,disintegrating 4 mg PO BID PRN (Reason: nausea and vomiting) 30 Days Qty: 20 2RF esomeprazole magnesium [Nexium] 40 mg capsule,delayed release(DR/EC) 40 mg PO DAILY Qty: 30 5RF metoclopramide HCl 5 mg/5 mL solution 5 mg PO BID 30 Days Qty: 300 0RF Rx Instructions: Take twice a day x 5 days then take a holiday for 2 days; repeat. Print Language: Portuguese
[2024-04-26 23:20] VITALS: BP 127/73; PULSE 67; RESP 14; TEMP 37.2; O2SAT 97
--- NOTE | 2024-04-26 23:21 | MHC.EDTECH ---
This pct assumed care of Patient at 2300 ,vitals taken ,Pt was change into hospital gown ,and hooked up to cardiac specialist ,Call perez within Pt reach .
[2024-04-26] MEDS: ondansetron HCL 4 MG/2 ML VIAL IVPUSH (23:23)
[2024-04-26 23:24] LABS: Lipase 19 U/L (8-78)
[2024-04-26] MEDS: 0.9 % Sodium Chloride 1,000 ML 999 ML IV ×2 (23:25)
[2024-04-26] MEDS: Potassium Chloride/H20 10 MEQ/100 ML PIGGYBACK 100 MEQ IV (23:33)
--- NOTE | 2024-04-26 23:36 | PC.NURSE ---
Pt medicated per [facility] Plan of care ongoing
--- NOTE | 2024-04-27 00:32 | PC.NURSE ---
Pt refusing 2nd bag of potassium. Provider notified and aware. Plan of care ongoing.
[2024-04-27] MEDS: ondansetron HCL 4 MG/2 ML VIAL IVPUSH (01:38)
[2024-04-27 02:00] VITALS: BP 117/77; PULSE 92; RESP 17; TEMP 36.9; O2SAT 98
[2024-04-27] MEDS: Famotidine/PF 20 MG/2 ML VIAL IVPUSH (02:34)
--- NOTE | 2024-04-27 02:36 | PC.NURSE ---
Pt medicated per [facility] Plan of care ongoing.
--- NOTE | 2024-04-27 03:36 | PC.NURSE ---
Pt requested and given water. Plan of care ongoing.
[2024-04-27 04:00] VITALS: BP 101/63; PULSE 65; RESP 17; TEMP 37.2; O2SAT 98
[2024-04-27 05:39] VITALS: BP 101/63; PULSE 65; RESP 17; TEMP 37.2; O2SAT 98
== END 2024-04-27 05:42 | disposition home or self-care (01) ==
PROVIDERS: Emergency Provider Emergency Medicine Emergency Medical Services
DX: E87.6 Hypokalemia (principal); K31.84 Gastroparesis; R11.2 Nausea with vomiting, unspecified; R19.7 Diarrhea, unspecified; Z03.818 Encounter for observation for suspected exposure to other biological agents ruled out
CPT/HCPCS: 0241U; 80053; 83690; 85025; 96361; 96374; 96375; 96376; 99284; J2405; J3480

== ENCOUNTER 2024-08-31 08:31 | Emergency (ER) | payer MEDICAID, SELFPAY ==
--- NOTE | 2024-08-31 | ECG_ITS ---
Test Reason : vomiting Blood Pressure : */* mmHG Vent. Rate : 98 BPM Atrial Rate : 98 BPM P-R Int : 124 ms QRS Dur : 74 ms QT Int : 334 ms P-R-T Axes : 65 68 17 degrees QTcB Int : 426 ms Normal sinus rhythm with sinus arrhythmia Possible Left atrial enlargement Low voltage QRS Borderline ECG No previous ECGs available Referred By: Generic ED Physician Electronically Signed By: ANGEL CORRALES
[2024-08-31 08:38] VITALS: BP 120/87; PULSE 105; RESP 20; TEMP 37; O2SAT 98; BMI 22.8
[2024-08-31 09:00] LABS: MANUAL DIFF FLAG NO
[2024-08-31 09:02] LABS: Basophils Percent Auto 0.6 % (0-2); Eosinophils Absolute Auto 0.2 X10*3/uL (0.0-0.4); Eosinophils Percent Auto 3.9 % (0-4); Hematocrit 42.4 % (37.0-47.0); Hemoglobin 14.7 g/dl (12.0-16.0); Imm Gran Abs Auto 0.01 X10*3/uL (0.00-0.03); Imm Gran Pct Auto 0.2 % (0.0-0.4); Lymphocytes Absolute Auto 1.2 X10*3/uL (1.2-4.9); Lymphocytes Percent Auto 22.2 % (20-40); Mean Corpuscular HGB Conc 34.7 g/dl (31.0-35.0); Mean Corpuscular Hemoglobin 28.7 pg (27.0-33.0); Mean Corpuscular Volume 82.7 fL (80.0-98.0); Monocytes Absolute Auto 0.5 X10*3/uL (0.1-1.2); Monocytes Percent Auto 9.5 % (2-11); Neutrophils Absolute Auto 3.5 x10*3/uL (2.0-8.3); Neutrophils Percent Auto 63.6 % (45-73); Platelet Count 195 X10*3/uL (160-400); Red Blood Count 5.13 X10*6/uL (4.20-5.50); Red Cell Distribution Width 12.3 % (11.0-16.0); White Blood Count 5.5 X10*3/uL (4.8-10.8)
[2024-08-31 09:49] LABS: Alanine Aminotransferase 23 U/L (0-31); Albumin Level 4.2 g/dL (3.5-5.0); Alkaline Phosphatase 73 U/L (39-117); Anion Gap 12 (12-20); Aspartate Amino Transferase 32 U/L (5-31); Bilirubin Total 0.6 mg/dL (0.0-1.0); Blood Urea Nitrogen 14 mg/dL (9-16); Calcium 9.1 mg/dL (8.4-10.2); Carbon Dioxide 25 mmol/L (22-29); Chloride 105 mmol/L (96-108); Creatinine Clr Calc Pharmacy 92.3; Estimated Glomerular Filt Rate > 60; Glucose Random 93 mg/dL (60-115); Lipase 22 U/L (8-78); Magnesium 1.9 mg/dL (1.6-2.6); Potassium 3.1 mmol/L (3.3-5.1); Sodium 139 mmol/L (135-145)
--- NOTE | 2024-08-31 10:11 | ED_ITS ---
HPI - Nausea/Vomiting/Diarrhea General Chief complaint: Nausea/Vomiting/Diarrhea Stated complaint: Vomiting Time Seen by Provider: 08/31/24 10:11 Source: patient, RN notes reviewed and old records reviewed Mode of arrival: ambulatory Limitations: no limitations History of Present Illness ED Provider: SANAZ FISHER PA-C HPI Narrative: 29-year-old female with pmhx significant for gastroparesis, IBS presents to the ED today for evaluation of nausea, vomiting and diarrhea x4 days. Reports her symptoms feels similar to a gastroparesis flare. Reports multiple episodes of nonbloody vomiting over the past 4 days. Her last episode was approximately 20 minutes ago. She has been trialing ondansetron and promethazine at home with some relief. She has been able to tolerate some liquids. Admits to associated nonbloody diarrhea x2 days. No recent sick contacts or recent travel. Denies fever, chills, sore throat, chest pain or sob, palpitations, flank pain, constipation, urinary sx. Pertinent surgical history includes cholecystetcomy. Related Data Previous Rx's ?Medication ?Instructions ?Recorded loperamide 2 mg capsule (Imodium 2 mg PO Q4H PRN loose stool #14 06/27/22 A-D) caps esomeprazole magnesium 40 mg 40 mg PO DAILY #30 caps 04/08/23 capsule,delayed release (Nexium) bisacodyl 5 mg tablet,delayed 10 mg (2 x 5 mg) PO BEDTIME #60 12/08/23 release (Dulcolax (bisacodyl)) tabs metoclopramide HCl 5 mg/5 mL oral 5 mg (5 mL) PO BID 30 days #300 mL 12/24/23 solution sucralfate 100 mg/mL oral 10 ml PO BID #1,000 mL 01/26/24 suspension erythromycin 250 mg tablet 250 mg PO BID 3 days #6 tabs 04/29/24 ondansetron 4 mg disintegrating 4 mg PO BID PRN nausea and 06/22/24 tablet vomiting 30 days #20 tabs promethazine 12.5 mg rectal 12.5 mg ME BID #12 ea 07/19/24 suppository ondansetron 4 mg disintegrating 4 mg PO DAILY PRN nausea and 08/31/24 tablet vomiting 5 days #7 tabs Allergies Allergy/AdvReac Type Severity Reaction Status Date / Time No Known Allergies Allergy Verified 08/31/24 08:39 Review of Systems 2 Review of Systems: Yes all other systems are reviewed and are negative [facility] Past Medical History Attestation statement: The following information was validated with the patient. Source: old records reviewed and nursing notes reviewed Surgical History History of laparoscopic cholecystectomy (11/14/22) Hx of colonoscopy History of esophagogastroduodenoscopy (EGD) History of wisdom tooth extraction Family History Family History Father Cancer Maternal Grandmother Cancer Paternal Grandfather Cancer Social History Social History Alcohol intake: never Patient Tobacco Use Status: Never used Tobacco Smoked in Last 30 Days: No Use of substances other than those prescribed or required for medical reasons: No Advance Directives: No Advance Directives Information Provided: Yes Patient : No Physical Exam 2 Vital Signs: Vital Signs: Last Vital Signs Temp 98.3 F 08/31/24 14:34 Pulse 79 08/31/24 14:34 Resp 14 08/31/24 14:34 BP 110/71 08/31/24 14:34 Pulse Ox 99 08/31/24 14:34 O2 Del Method Room Air 08/31/24 14:34 BMI result Body Mass Index 22.8 Afebrile. Mildly tachycardic to 105 beats per minute. Normotensive General: Well appearing, in no acute distress. Skin: Warm, dry, intact. No rashes or lesions. Head: Normocephalic, atraumatic. EENT: Hearing is intact b/l. Conjunctiva clear. Sclera is anicteric. Neck: Supple without LAD. Cardiac: Chest wall symmetric. RRR. Lungs: Normal respiratory effort without accessory muscle use. CTA bilaterally. ? Abdomen: Soft, non-tender, non-distended. No rebound tenderness or guarding. Positive BS x4. Ext: Upper and lower extremities atraumatic, without tenderness, deformity, swelling or erythema. Neuro: AOx3. Normal speech. Course Course Course Narrative: 1426 -- CBC without leukocytosis or left shift. No anemia. H&H stable. Chemistry showing hypokalemia to 3.1. Magnesium 1.9. No FABY. Liver function around baseline. Lipase WNL. Urine showing trace leukocyte esterase, 3-5 RBCs, 0-5 WBCs, 3-5 squamous epithelial cells and trace urine bacteria. Patient denies any urinary symptoms. Will await urine culture for treatment of UTI. Negative COVID, flu, RSV. > patient treated with IV fluids and Zofran. Potassium repleted. She is declining any oral potassium at this point. She is tolerating crackers, jello and water in the ED. No further episodes of vomiting or diarrhea. She is well- appearing. Abdomen is benign. No indication for imaging at this time. At this time I feel patient is stable for discharge home w/ outpatient follow up. Patient has remained stable throughout ED visit today. Discussed worrisome signs and symptoms and when to return to the ED. All questions answered at this time. Patient is agreeable with disposition and stable for discharge. Medications Administered Discontinued Medications Generic Name Dose Route Start Last Admin Trade Name Freq PRN Reason Stop Dose Admin Potassium Chloride 10 meq in 100 mls @ 100 mls/hr 08/31/24 10:30 08/31/24 13:16 Potassium Chloride/H20 IV 08/31/24 12:29 Infused Q1H SHILPA Infusion Magnesium Sulfate 2 gm in 50 mls @ 150 mls/hr 08/31/24 10:22 08/31/24 11:29 Magnesium Sulfate/H2o IV 08/31/24 10:41 Infused ONCE ONE Infusion Sodium Chloride 1,000 mls @ 999 mls/hr 08/31/24 10:30 08/31/24 12:37 Ns IV 08/31/24 11:30 Infused .Q1H1M SHILPA Infusion Ondansetron HCl 4 mg 08/31/24 10:32 08/31/24 10:52 Ondansetron Hcl 4 Mg/2 Ml Vial IVPUSH 08/31/24 10:33 4 mg ONCE ONE Administration Potassium Chloride 40 meq 08/31/24 12:59 08/31/24 13:27 Potassium Chloride Packet 20 Meq Packet PO 08/31/24 13:00 Not Given ONCE ONE Medical Decision Making Medical Decision Making MDM Narrative: 29-year-old female with pmhx significant for gastroparesis, IBS presents to the ED today for evaluation of nausea, vomiting and diarrhea x4 days. patient initially tachycardic, vitals otherwise wnl. afebrile. she is nontoxic appearing and in NAD. her abdomen is soft, ND/NT, there is no rebound or guarding. active bsx4. Differential diagnosis includes anemia, electrolyte abnormality, dehydration, gastroenteritis, gastritis, PUD, gastroparesis. Abdominal exam without peritoneal signs. No evidence of acute abdomen at this time. Well appearing. Moderate suspicion for acute hepatobiliary disease (including acute cholecystitis). Less likely to represent biliary colic, nephrolithiasis, renal colic, acute pancreatitis, perforated ulcer/ GI bleed, acute infectious processes (pneumonia, hepatitis, pyelonephritis), atypical appendicitis, vascular catastrophe, bowel obstruction or viscus perforation. Presentation not consistent with other acute, emergent causes of abdominal pain at this time. Plan: labs, UA, viral swabs, pain control, IVF, serial reassessment Differential Diagnosis Differential Diagnoses: The differential diagnosis associated with the presentation includes As above Admission/Observation not indicated Lab Data MDM Lab Attestation statement: I reviewed the patient's lab results. as above 08/31/24 08:57 08/31/24 08:57 Labs: Lab Results 08/31/24 08/31/24 Range/Units 08:57 10:28 WBC 5.5 (4.8-10.8) X10*3/uL RBC 5.13 (4.20-5.50) X10*6/uL Hgb 14.7 (12.0-16.0) g/dl Hct 42.4 (37.0-47.0) % MCV 82.7 (80.0-98.0) fL MCH 28.7 (27.0-33.0) pg MCHC 34.7 (31.0-35.0) g/dl RDW 12.3 (11.0-16.0) % Plt Count 195 (160-400) X10*3/uL MPV 10.0 (9.4-12.3) fL Immature Gran % (Auto) 0.2 (0.0-0.4) % Neut % (Auto) 63.6 (45-73) % Lymph % (Auto) 22.2 (20-40) % [place] % (Auto) 9.5 (2-11) % Eos % (Auto) 3.9 (0-4) % Baso % (Auto) 0.6 (0-2) % Lymph # (Auto) 1.2 (1.2-4.9) X10*3/uL [place] # (Auto) 0.5 (0.1-1.2) X10*3/uL Eos # (Auto) 0.2 (0.0-0.4) X10*3/uL Baso # (Auto) 0.0 (0.0-0.2) X10*3/uL Abs Immat Gran (auto) 0.01 (0.00-0.03) X10*3/uL Absolute Neuts (auto) 3.5 (2.0-8.3) x10*3/uL Absolute Nucleated RBC 0.000 (0.0-0.012) X10*3/uL Nucleated RBC % (auto) 0.0 (0.0-0.2) /100WBC Sodium 139 (135-145) mmol/L Potassium 3.1 L (3.3-5.1) mmol/L Chloride 105 (96-108) mmol/L Carbon Dioxide 25 (22-29) mmol/L Anion Gap 12 (12-20) BUN 14 (9-16) mg/dL Creatinine 0.73 (0.5-1.4) mg/dL Estim Creat Clear Calc 92.3 Estimated GFR > 60 Random Glucose 93 (60-115) mg/dL Calcium 9.1 (8.4-10.2) mg/dL Magnesium 1.9 (1.6-2.6) mg/dL Total Bilirubin 0.6 (0.0-1.0) mg/dL AST 32 H (5-31) U/L ALT 23 (0-31) U/L Alkaline Phosphatase 73 (39-117) U/L Total Protein 7.0 (6.5-8.0) g/dL Albumin 4.2 (3.5-5.0) g/dL Lipase 22 (8-78) U/L Urine Color Dark Yellow Urine Appearance Clear Urine pH 5.5 (5.0-9.0) Ur Specific [place] >= 1.030 H (1.005-1.025) Urine Protein 30 (1+) H (Neg-Trace) mg/dL Urine Glucose (UA) Negative (Negative) mg/dL Urine Ketones >=160 (Negative) mg/dL Urine Blood Trace H (Negative) Urine Nitrite Negative (Negative) Ur Leukocyte Esterase Trace H (Negative) Urine RBC 3-5 H (0-2) /HPF Urine WBC 0-5 (0-5) /HPF Ur Squamous Epith Cells 3-5 (0-2) /HPF Urine Bacteria Trace (None Seen) Hyaline Casts 0-2 (0-2) /LPF Influenza Type A (PCR) NEGATIVE (Negative) Influenza Type B (PCR) NEGATIVE (Negative) RSV RNA Qual (PCR) NEGATIVE (Negative) SARS-CoV-2 RNA (RT-PCR) NEGATIVE (Negative) Prescription Management I considered prescription management with: Other (zofran) Social Determinants Patient?s care significantly limited by Social Determinants of Health including: Other Social Determinant of Health Critical Care Time Critical Care Time Critical Care Time: No Discharge Plan Discharge Clinical Impression: Nausea vomiting and diarrhea, Hypokalemia Patient Disposition: Home, Self-Care Instructions: Hypokalemia (ED), Acute Nausea and Vomiting (ED) Additional Instructions: You were evaluated in the ED today for nausea, vomiting, diarrhea. Your symptoms improved after medication administration. Your blood work showed slightly low levels of potassium. You received potassium repletion in the ED today. Your blood work is otherwise reassuring. You tested negative for COVID, flu, RSV. You may take Zofran as needed for nausea or vomiting. The recommendation is rest and lots of oral hydration.? For the next 24 hours, stick to a SUMAN diet (bananas rice, applesauce, tea, and toast) You can also try over the counter Pepto Bismol or Imodium as needed for upset stomach and diarrhea.? Follow up with your primary care provider this week. Follow up with your outpatient providers as needed. If you develop new or worsening symptoms call 911 or come back to the ER for further evaluation. Prescriptions: New ondansetron 4 mg tablet,disintegrating 4 mg PO DAILY PRN (Reason: nausea and vomiting) 5 Days Qty: 7 0RF No Action loperamide [Imodium A-D] 2 mg capsule 2 mg PO Q4H PRN (Reason: loose stool) Qty: 14 0RF Rx Instructions: Take 4 mg in the morning, followed by 2 mg after each loose stool. You can take up to a maximum of 16 mg/day. bisacodyl [Dulcolax (bisacodyl)] 5 mg tablet,delayed release (DR/EC) 10 mg PO BEDTIME Qty: 60 4RF sucralfate 100 mg/mL suspension 10 ml PO BID Qty: 1000 1RF erythromycin 250 mg tablet 250 mg PO BID 3 Days Qty: 6 0RF ondansetron 4 mg tablet,disintegrating 4 mg PO BID PRN (Reason: nausea and vomiting) 30 Days Qty: 20 2RF promethazine 12.5 mg suppository 12.5 mg ME BID Qty: 12 1RF esomeprazole magnesium [Nexium] 40 mg capsule,delayed release(DR/EC) 40 mg PO DAILY Qty: 30 5RF metoclopramide HCl 5 mg/5 mL solution 5 mg PO BID 30 Days Qty: 300 0RF Rx Instructions: Take twice a day x 5 days then take a holiday for 2 days; repeat. Referrals: Physician,Unknown J [Primary Care Provider] - Stand Alone Forms: Work/School Release Interventions: ED Discharge Assessment Last Done: 08/31/24 14:34 Discharge Date/Time: 08/31/24 14:53 Print Language: Canadian
[2024-08-31 10:35] LABS: Appearance Urine Clear; Color Urine Dark Yellow; Glucose Urine UA Negative (Negative); Leukocyte Esterase Urine Trace (Negative); Nitrite Urine Negative (Negative); PH 5.5 (5.0-9.0); Specific Gravity - Urine >= 1.030 (1.005-1.025); UMIC TRIGGER UACC YES; Urine Blood Trace (Negative); Urine Ketones >=160 mg/dL (Negative); Urine Protein 30 (1+) mg/dL (Neg-Trace)
[2024-08-31] MEDS: 0.9 % Sodium Chloride 1,000 ML 999 ML IV (10:51)
[2024-08-31] MEDS: Potassium Chloride/H20 10 MEQ/100 ML PIGGYBACK 100 MEQ IV ×2 (10:52→12:16)
[2024-08-31] MEDS: Magnesium Sulfate/H2O 2 GM/50 ML PIGGYBACK IV (10:52)
[2024-08-31] MEDS: ondansetron HCL 4 MG/2 ML VIAL IVPUSH (10:52)
[2024-08-31 11:07] LABS: Bacteria Urine Trace (None Seen); Hyaline Casts Urine 0-2 /LPF (0-2); WBC Urine 0-5 /HPF (0-5)
[2024-08-31 11:09] LABS: Influenza A PCR NEGATIVE (Negative); Influenza B PCR NEGATIVE (Negative); Resp Syncy Virus RNA Qual PCR NEGATIVE (Negative); SARS COV2 PCR INHOUSE NEGATIVE (Negative)
--- NOTE | 2024-08-31 11:10 | PC.NURSE ---
Patient presents to ED c/o N/V/D x 3-4 days. No blood noted. Denies pain. Denies SOB/WOB. Patient A&O x 4. Magnesium and potassium noted to be low. 20G in Left and Right AC's, currently infusing K+ and magnesium. Plan of care on going.
[2024-08-31 11:23] VITALS: BP 122/79; PULSE 81; RESP 10; TEMP 36.8; O2SAT 98
--- OUTSIDE RECORDS SUMMARY | 2024-08-31 11:51 | XMS_ITS | Clinical Summary ---
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 3 Active Active Problems Problem Noted Date Diagnosed Date Gallbladder polyp 10/28/2022 Overview (02/12/2024): Follows up with Dr. Harry Torres at [facility]. 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 Overview (02/12/2024): S/p MRI 07/2017 Mild intermittent asthma without complication Chronic seasonal allergic rhinitis 05/15/2017 Anxiety 05/15/2017 Surgical History Surgery Date Site/Laterality Comments OTHER SURGICAL HISTORY PROCEDURE: PICC INSERTION; COMMENT: history of pseudomonas sepsis, hospitalized Medical History Medical History Date Comments Anxiety 05/15/2017 DX:Anxiety Chronic seasonal allergic rhinitis 05/15/2017 DX:Chronic seasonal allergic rhinitis Mild intermittent asthma wit hout complication 05/15/2017 DX:Mild intermittent asthma without complication Hepatic adenoma 08/21/2017 DX:Hepatic adeno ma; COMMENT: S/p MRI 07/2017 Gastroparesis Family History Medical History Relation Name Comments Other: brain tumor Maternal Grandmother u nknown kind of cancer Other: ? cervical ca Mother Other cancer Paternal Grandmother unknown kind, passed in later 70s Relation Name Status Comments Maternal Grandmother Mother Paternal Grandmother Social History Tobacco Use Types Packs/Day Years Used Date Smoking Tobacco: Never Smokeless Tobacco: Never Alcohol Use Standard Drinks/Week Comments No 0 (1 standard drink = 0.6 oz pur e alcohol) Comments Unknown Sex and Gender Information Value Date Recorded Sex Assigned at Not on file Legal Sex Female 7:57 PM EST Gender Identity Not on file Sexual Orientation Not on file Obstetrics History Last Filed Vital Signs Vital Sign Reading Time Taken Comments Blood Pressure 110/72 04/23/2024 5:57 AM EST Pulse 117 04/23/2024 5:57 AM EST Temperature 37.7 ??C (99.9 ??F) 04/23/2024 5:57 AM ES T Respiratory Rate 18 04/23/2024 5:57 AM EST Oxygen Saturation 99% 04/23/2024 5:57 AM EST Inhaled Oxygen Concentration - - Weight 59 kg (130 lb) 04/23/2024 5:57 AM EST Height 160 cm (5' 3 ) 04/23/2024 5:57 AM EST Body Mass Index 23.03 04/23/2024 5:57 AM EST Plan of Treatment Health Maintenance Due Date Last Done Comments Hepatitis B Vaccines (1 of 3 - 19+ 3-dose series) 02/16/2012 Pneumococcal Vaccine: Pediatrics (0 to 5 Years) and At-Risk Patients (6 to 64 Years) (1 of 2 - PCV) 02/16/2012 Cervical Cancer Screening: P ap Smear 07/24/2020 07/24/2017 Hepatitis C Screening 05/28/2023 Social Influencers of Health Screening 05/28/2023 COVID-19 Vaccine (1 - 2023-2 5 season) 2023 Depression Screening 07/10/2024 07/11/2023 Influenza Vaccine (Season Ended) 2024 Cholesterol Screening (Lipid Panel) 10/12/2027 10/11/2022 DTaP,Tdap,and Td Vaccines (3 - Td or Tdap) 02/01/2031 02/01/2021, 03/10/2018 HIV Screening Completed 10/11/2022 HIB Vaccines Aged Out No longer eligi ble based on patient's age to complete this topic HPV Vaccines Aged Out No longer eligi ble based on patient's age to complete this topic Hepatitis A Vaccines Aged Out No long er eligible based on patient's age to complete this topic IPV Vaccines Aged Out No longer eligi ble based on patient's age to complete this topic MMR Vaccines Aged Out No longer eligi ble based on patient's age to complete this topic Meningococcal ACWY Vaccine Aged Out N o longer eligible based on patient's age to complete this topic Meningococcal B Vaccine Aged Out No l onger eligible based on patient's age to complete this topic RSV Immunization Patients Under 20 months Aged Out No longer eligible b ased on patient's age to complete this topic Varicella Vaccines Aged Out No longer eligible based on patient's age to complete this topic Procedures Procedure Name Priority Date/Time Associated Diagnosis Comments DEPRESSION SCREENING Routine 07/11/2023 HIV SCREENING Routine 10/11/2022 LIPID PANEL Routine 10/11/2022 PAP SMEAR Routine 07/24/2017 from Last 3 Months or Most Recently Relevant to Health Maintenance Results * Depression Screening (07/11/2023) Pathologist [facility] Depression Screening abstracted Historical Provider HEALTH MAINTENANCE Final Result * HIV Screening (10/11/2022) [facility] HIV Screening abstracted Historical Provider HEALTH MAINTENANCE Final Result * Lipid panel (10/11/2022) [facility] LDL/HDL Ratio 3 0 - 4 Triglycerides 72 0 - 150 mg/dL Cholesterol 146 0 - 200 mg/dL HDL 54 >=40 mg/dL LDL Cholesterol 78 0 - 100 mg/dL Blood Venous blood specimen / Unknown Historical Provider LAB BLOOD ORDERABLES Maeve l Result * Pap Smear (07/24/2017) [facility] Pap smear no interpretation , abstracted us Historical Provider HEALTH MAINTENANCE Final Result from Last 3 Months or Most Recently Relevant to Health Maintenance Insurance [facility] [employer] PLAN MEDICAID - [place] Care Teams Machine 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
[2024-08-31 12:09] VITALS: BP 119/71; PULSE 81; RESP 15; TEMP 36.9; O2SAT 98
--- NOTE | 2024-08-31 12:18 | PC.NURSE ---
K+ bag 2 of 2 currently infusing w/ NaCl 1l. Patient complained of burning at site, IV K+ slowed down. Patient showing signs of relief.
--- NOTE | 2024-08-31 13:27 | PC.NURSE ---
Patient refused PO K+, Patient was concerned about becoming nauseous and having a vomiting episode. Notified Shana BERG. Provider wanted to trial crackers for patient, Patient consumed crackers. C/o of slight nausea but no vomiting at this time.
[2024-08-31 14:31] VITALS: BP 110/71; PULSE 79; RESP 14; TEMP 36.8; O2SAT 99
[2024-08-31 14:34] VITALS: BP 110/71; PULSE 79; RESP 14; TEMP 36.8; O2SAT 99
== END 2024-08-31 14:53 | disposition home or self-care (01) ==
PROVIDERS: Physician Assistant Medical; Emergency Provider Emergency Medicine Emergency Medical Services
DX: R11.2 Nausea with vomiting, unspecified (principal); R19.7 Diarrhea, unspecified; E87.6 Hypokalemia; R00.0 Tachycardia, unspecified; Z03.818 Encounter for observation for suspected exposure to other biological agents ruled out
CPT/HCPCS: 0241U; 36415; 80053; 81001; 83690; 83735; 85025; 93005; 96361; 96365; 96367; 96375; 99285; J2405; J3475; J3480

== ENCOUNTER → 2024-08-31 08:49 | Outpatient (BNV) | payer SELFPAY | PROVIDERS: Emergency Provider Emergency Medicine Emergency Medical Services; Visit Provider Internal Medicine | DX: R11.10 Vomiting, unspecified (principal) | CPT/HCPCS: 93010 ==

== ENCOUNTER 2024-10-14 08:48 | Emergency (ER) | payer MEDICAID, SELFPAY ==
--- NOTE | 2024-10-14 09:02 | ED_ITS ---
HPI - General Adult General Chief complaint: General Medical Stated complaint: Bruising on legs/feet Time Seen by Provider: 10/14/24 08:59 Source: patient and RN notes reviewed Mode of arrival: ambulatory Limitations: no limitations History of Present Illness ED Provider: Marcelina Hager PA-C HPI narrative: 29-year-old female with pmhx significant for gastroparesis, IBS presents to the ED, who presents emergency department with concerns of bruising to her lower extremities for the last 4 days. Patient reports that she has noticed bruising throughout her bilateral lower extremities without any known injury or trauma. Denies history of similar symptoms in the past. Patient reports that she has had chronic fatigue and associated nausea. She denies any fevers, chills, chest pain, shortness of breath, abdominal pain, vomiting or diarrhea. No known tick bites. MD complaint: Bruising lower extremities Onset (ago): day(s) Pain Consistency: constant Relieving factors: none Exacerbating factors: none Associated symptoms: denies other symptoms Treatments prior to arrival: none Related Data Previous Rx's ?Medication ?Instructions ?Recorded loperamide 2 mg capsule (Imodium 2 mg PO Q4H PRN loose stool #14 06/27/22 A-D) caps esomeprazole magnesium 40 mg 40 mg PO DAILY #30 caps 1 06/09/22 capsule,delayed release (Nexium) bisacodyl 5 mg tablet,delayed 10 mg (2 x 5 mg) PO BEDT SILVIA #60 12/08/23 release (Dulcolax (bisacodyl)) tabs metoclopramide HCl 5 mg/5 mL oral 5 mg (5 mL) PO BID 3 0 days #300 mL 12/24/23 solution sucralfate 100 mg/mL oral 10 ml PO BID #1,000 mL 01/25 suspension erythromycin 250 mg tablet 250 mg PO BID 3 days #6 tab s 04/29/24 ondansetron 4 mg disintegrating 4 mg PO DAILY PRN naus ea and 08/31/24 tablet vomiting 5 days #7 tabs ondansetron 4 mg disintegrating 4 mg PO BID PRN nausea and 10/04/24 tablet vomiting 30 days #20 tabs promethazine 12.5 mg rectal 12.5 mg ID BID #12 ea 01/20 suppository amoxicillin 875 mg-potassium 1 tab PO BID 10 days #20 tabs 10/14/24 clavulanate 125 mg tablet Allergies Allergy/AdvReac Type Severity Reaction Status Date / Time No Known Allergies Allergy Verified 10/14/24 09:20 Review of Systems 2 Review of Systems: Yes all other systems are reviewed and are negative Constitutional: Constitutional: Reports as per [facility] Past Medical History Attestation statement: The following information was validated with the patient. Surgical History History of laparoscopic cholecystectomy (11/14/22) Hx of colonoscopy History of esophagogastroduodenoscopy (EGD) History of wisdom tooth extraction Family History Family History Father Cancer Maternal Grandmother Cancer Paternal Grandfather Cancer Social History Social History Alcohol intake: never Patient Tobacco Use Status: Never used Tobacco Smoked in Last 30 Days: No Use of substances other than those prescribed or required for medical reasons: No Advance Directives: No Advance Directives Information Provided: Yes Do you have a plan to hurt others: No Plan Patient : No Physical Exam ED Vital Signs: Vital Signs - 24 hr 10/14/24 09:16 10/14/24 12:22 Temperature 98.5 F Pulse Rate 78 Respiratory Rate 18 Blood Pressure 115/79 Pulse Oximetry 96 Oxygen Delivery Method Room Air BMI result Body Mass Index 23.0 Const General: cooperative, comfortable and no acute distress Orientation/consciousness: patient oriented x3 Limitations: no limitations [facility] Head: Yes normal to inspection, Yes normocephalic and Yes atraumatic Ears: hearing grossly normal bilaterally General nose exam: Normal external nose present Face and sinus: Yes normal facial exam Mouth: Normal oral and palatal mucosa present, oropharynx normal and moist mucous membranes Throat: Yes posterior oropharynx normal Eyes General: appearance normal, both eyes and all related structures Eyelids: Yes eyelids normal Conjunctivae: conjunctivae normal Sclerae: sclerae normal Pupils: Equal, round and reactive pupils present EOM: EOMs intact bilaterally Neck Neck: Yes normal visual inspection, Yes full ROM and Yes no lymphadenopathy Lymphatic: no lymphadenopathy noted Chest Chest palpation & inspection: normal inspection of the chest Resp Effort & Inspection: normal respiratory effort and able to speak in complete sentences Auscultation: clear to auscultation bilaterally, no crackles, no rales, no rhonchi and no wheezes Cardio Rate: regular rate Rhythm: regular rhythm Heart sounds: S1 normal heart sound present and S2 normal heart sound present GI Inspection: Yes normal to inspection Skin Other: Scattered bruises noted throughout bilateral legs, appears to be in the healing stage. Mildly tender. Blanchable. No surrounding erythema or warmth. No induration. Neuro General: patient oriented x3 and moves all extremities Cranial nerves: Yes Equal, round and reactive pupils present Extrem Other: Bilateral lower extremities with diffuse bruising noted bilaterally, no calf tenderness. No pedal edema. General: Yes normal to inspection Right upper extremity: normal to inspection Left upper extremity: normal to inspection Right lower extremity: normal to inspection Left lower extremity: normal to inspection Medications Administered Discontinued Medications Generic Name Dose Route Start Last Admin Trade Name Freq PRN Reason Stop Dose Admin Ondansetron HCl 4 mg 10/14/24 09:31 10/14/24 09:46 Ondansetron Odt 4 Mg Tab.Rapdis TRANSLINGU 10/14/24 09:32 4 mg ONCE ONE Administration Medical Decision Making Medical Decision Making [facility] Narrative: This is a 29-year-old female, with a past medical history of gastroparesis, who presents emergency department with complaints of lower extremity bruising for the last 4-5 days. Unknown injury. Denies history of similar symptoms in the past. She also reports fatigue, has been followed by her primary care and GI specialist, states that she has been struggling with this for several years. No known tick bites. 10/14/2024 1104 - labs returned, she has no leukocytosis, H&H stable, chemistry with no electrolyte derangement, platelets within normal limits. Iron within normal limits, TIBC within normal limits, chemistry otherwise within normal limits. Vitamin-D 41.3, TSH 1.1, beta quant less than 2. Tick panel still pending. Negative for flu, COVID, RSV. Given recent strep infection, will retest for strep. She states that she completed the full course of antibiotics. Strep is positive, will treat with Augmentin as she was only treated with amoxicillin. Also obtain blood cultures as she had recurrent strep infection. Given strict return precautions. Advised follow-up with PCP. Also given referral to rheumatology given chronic fatigue/gastroparesis, and has never been worked up for this through this type of specialty. Patient understands and agrees with plan. Patient stable for discharge Differential Diagnosis Differential Diagnoses: The differential diagnosis associated with the presentation includes Thrombocytopenia, chronic fatigue, electrolyte derangement Admission/Observation Consideration of admission/observation: Escalation of care including admission/observation considered Lab Data [facility] Lab Attestation statement: I reviewed the patient's lab results. See MDM and course 10/14/24 09:44 10/14/24 09:44 Labs: Lab Results 10/14/24 10/14/24 10/14/24 Range/Units 09:43 09:44 11:38 WBC 7.9 (4.8-10.8) X10*3/uL RBC 5.04 (4.20-5.50) X10*6/uL Hgb 14.4 (12.0-16.0) g/dl Hct 42.0 (37.0-47.0) % MCV 83.3 (80.0-98.0) fL MCH 28.6 (27.0-33.0) pg MCHC 34.3 (31.0-35.0) g/dl RDW 12.6 (11.0-16.0) % Plt Count 247 D (160-400) X10*3/uL MPV 10.3 (9.4-12.3) fL Immature Gran % (Auto) 0.1 (0.0-0.4) % Neut % (Auto) 63.1 (45-73) % Lymph % (Auto) 26.2 (20-40) % Mcintosh % (Auto) 5.6 (2-11) % Eos % (Auto) 3.9 (0-4) % Baso % (Auto) 1.1 (0-2) % Lymph # (Auto) 2.1 (1.2-4.9) X10*3/uL Mcintosh # (Auto) 0.4 (0.1-1.2) X10*3/uL Eos # (Auto) 0.3 (0.0-0.4) X10*3/uL Baso # (Auto) 0.1 (0.0-0.2) X10*3/uL Abs Immat Gran (auto) 0.01 (0.00-0.03) X10*3/uL Absolute Neuts (auto) 5.0 (2.0-8.3) x10*3/uL Absolute Nucleated RBC 0.000 (0.0-0.012) X10*3/uL Nucleated RBC % (auto) 0.0 (0.0-0.2) /100WBC PT 11.6 (10.9-12.4) SEC INR 1.0 (0.9-1.1) APTT 31.1 (26.0-36.8) SEC Sodium 140 (135-145) mmol/L Potassium 3.5 (3.3-5.1) mmol/L Chloride 107 (96-108) mmol/L Carbon Dioxide 28 (22-29) mmol/L Anion Gap 9 L (12-20) BUN 10 (9-16) mg/dL Creatinine 0.68 (0.5-1.4) mg/dL Estim Creat Clear Calc 99.1 Estimated GFR > 60 Random Glucose 92 (60-115) mg/dL Calcium 9.4 (8.4-10.2) mg/dL Magnesium 1.9 (1.6-2.6) mg/dL Iron 67 (30-160) mcg/dL TIBC 287 (228-428) mcg/dL % Saturation 23 (15-50) % Unsat Iron Binding 220 ug/dL Total Bilirubin 0.5 (0.0-1.0) mg/dL Direct Bilirubin 0.2 (0.0-0.5) mg/dL AST 22 (5-31) U/L ALT 18 (0-31) U/L Alkaline Phosphatase 72 (39-117) U/L Total Protein 7.0 (6.5-8.0) g/dL Albumin 4.4 (3.5-5.0) g/dL 25-OH Vitamin D Total 41.3 (>30) ng/mL TSH 1.10 (0.32-4.0) uIU/mL Beta HCG, Quant < 2 mIU/mL Lyme Screen IgG & IgM <0.90 index Lyme Progressive Test TNP Influenza Type A (PCR) NEGATIVE (Negative) Influenza Type B (PCR) NEGATIVE (Negative) RSV RNA Qual (PCR) NEGATIVE (Negative) SARS-CoV-2 RNA (RT-PCR) NEGATIVE (Negative) S. pyogenes GrpA CATE Positive A (Negative) Discharge Plan Discharge Clinical Impression: Abnormal bruising, Strep throat Patient Disposition: Home, Self-Care Instructions: Pharyngitis (ED), Strep Throat (ED), Ecchymosis (ED) Additional Instructions: You were seen in the emergency department due to unusual bruising to your lower extremities. Your blood work today was reassuring. I am recommending you follow-up with Rheumatology, call today to make an appointment. You may also do this through your primary care physician. You may want to be worked up far an autoimmune disorder. I am starting you on a course of Augmentin, please take as prescribed. Finish the entire course even if your symptoms improve. You did collect blood cultures, we will call you if any of these are positive. Drink plenty of fluids get plenty of rest. If any new or worsening symptoms occur including but not limited to severe chest pain, shortness for breath, difficulty breathing, worsening bruising, swelling to your lower extremities, please seek emergent care. Prescriptions: New amoxicillin-pot clavulanate 875-125 mg tablet 1 tab PO BID 10 Days Qty: 20 0RF No Action loperamide [Imodium A-D] 2 mg capsule 2 mg PO Q4H PRN (Reason: loose stool) Qty: 14 0RF Rx Instructions: Take 4 mg in the morning, followed by 2 mg after each loose stool. You can take up to a maximum of 16 mg/day. bisacodyl [Dulcolax (bisacodyl)] 5 mg tablet,delayed release (DR/EC) 10 mg PO BEDTIME Qty: 60 4RF sucralfate 100 mg/mL suspension 10 ml PO BID Qty: 1000 1RF erythromycin 250 mg tablet 250 mg PO BID 3 Days Qty: 6 0RF ondansetron 4 mg tablet,disintegrating 4 mg PO BID PRN (Reason: nausea and vomiting) 30 Days Qty: 20 2RF promethazine 12.5 mg suppository 12.5 mg ID BID Qty: 12 1RF ondansetron 4 mg tablet,disintegrating 4 mg PO DAILY PRN (Reason: nausea and vomiting) 5 Days Qty: 7 0RF esomeprazole magnesium [Nexium] 40 mg capsule,delayed release(DR/EC) 40 mg PO DAILY Qty: 30 5RF metoclopramide HCl 5 mg/5 mL solution 5 mg PO BID 30 Days Qty: 300 0RF Rx Instructions: Take twice a day x 5 days then take a holiday for 2 days; repeat. Referrals: [facility] [Provider Group, Rheumatology] Interventions: ED Discharge Assessment Last Done: 10/14/24 13:26 Discharge Date/Time: 10/14/24 13:28 Print Language: Vietnamese
[2024-10-14 09:16] VITALS: BP 115/79; PULSE 78; RESP 18; O2SAT 96; BMI 23.0
[2024-10-14] MEDS: Ondansetron ODT 4 MG TAB.RAPDIS TRANSLINGU (09:46)
[2024-10-14 09:49] LABS: Basophils Percent Auto 1.1 % (0-2); Eosinophils Percent Auto 3.9 % (0-4); Hemoglobin 14.4 g/dl (12.0-16.0); Imm Gran Pct Auto 0.1 % (0.0-0.4); Lymphocytes Percent Auto 26.2 % (20-40); MANUAL DIFF FLAG NO; Mean Corpuscular HGB Conc 34.3 g/dl (31.0-35.0); Mean Corpuscular Hemoglobin 28.6 pg (27.0-33.0); Mean Corpuscular Volume 83.3 fL (80.0-98.0); Mean Platelet Volume 10.3 fL (9.4-12.3); Monocytes Percent Auto 5.6 % (2-11); Neutrophils Percent Auto 63.1 % (45-73); Platelet Count 247 X10*3/uL (160-400); Red Blood Count 5.04 X10*6/uL (4.20-5.50); Red Cell Distribution Width 12.6 % (11.0-16.0); White Blood Count 7.9 X10*3/uL (4.8-10.8)
[2024-10-14 09:50] LABS: Basophils Absolute Auto 0.1 X10*3/uL (0.0-0.2); Eosinophils Absolute Auto 0.3 X10*3/uL (0.0-0.4); Imm Gran Abs Auto 0.01 X10*3/uL (0.00-0.03); Lymphocytes Absolute Auto 2.1 X10*3/uL (1.2-4.9); Monocytes Absolute Auto 0.4 X10*3/uL (0.1-1.2)
[2024-10-14 09:56] LABS: Prothrombin Time 11.6 SEC (10.9-12.4)
[2024-10-14 09:58] LABS: Partial Thromboplastin Time 31.1 SEC (26.0-36.8)
[2024-10-14 10:16] LABS: Alanine Aminotransferase 18 U/L (0-31); Albumin Level 4.4 g/dL (3.5-5.0); Alkaline Phosphatase 72 U/L (39-117); Anion Gap 9 (12-20); Aspartate Amino Transferase 22 U/L (5-31); Bilirubin Direct 0.2 mg/dL (0.0-0.5); Bilirubin Total 0.5 mg/dL (0.0-1.0); Blood Urea Nitrogen 10 mg/dL (9-16); Calcium 9.4 mg/dL (8.4-10.2); Carbon Dioxide 28 mmol/L (22-29); Chloride 107 mmol/L (96-108); Creatinine Clr Calc Pharmacy 99.1; Estimated Glomerular Filt Rate > 60; Glucose Random 92 mg/dL (60-115); Iron 67 mcg/dL (30-160); Magnesium 1.9 mg/dL (1.6-2.6); Percent Iron Saturation 23 % (15-50); Potassium 3.5 mmol/L (3.3-5.1); Sodium 140 mmol/L (135-145); Total Iron Binding Capacity 287 mcg/dL (228-428); Unsaturated Iron Binding 220 ug/dL
[2024-10-14 10:26] LABS: Influenza A PCR NEGATIVE (Negative); Influenza B PCR NEGATIVE (Negative); Resp Syncy Virus RNA Qual PCR NEGATIVE (Negative); SARS COV2 PCR INHOUSE NEGATIVE (Negative)
[2024-10-14 10:34] LABS: HCG Quantitative < 2 mIU/mL; Vitamin D 25-OH Total 41.3 ng/mL (>30)
[2024-10-14 11:48] LABS: IDNOW Serial# 58CA691E; Strep A Nucleic Acid Positive (Negative)
[2024-10-14 12:22] VITALS: TEMP 36.9
[2024-10-14 13:26] VITALS: BP 125/77; PULSE 75; RESP 18; TEMP 36.9; O2SAT 95
[2024-10-15 17:38] LABS: Lyme Abs Screen <0.90 index
[2024-10-24 14:43] LABS: Babesia IgG <1:64 titer (<1:64); Babesia IgM <1:20 titer (<1:20)
[2024-10-26 08:24] LABS: A. Phagocytophilum Ab IgG <1:64 (<1:64); A. Phagocytophilum Ab IgM <1:20 (<1:20); E. Chaffeensis Ab IgG <1:64 (<1:64); E. Chaffeensis Ab IgM <1:20 (<1:20)
== END 2024-10-14 13:28 | disposition home or self-care (01) ==
PROVIDERS: Physician Assistant Medical; Emergency Provider Emergency Medicine
DX: S80.11XA Contusion of right lower leg, initial encounter (principal); S80.12XA Contusion of left lower leg, initial encounter; J02.0 Streptococcal pharyngitis; X58.XXXA Exposure to other specified factors, initial encounter; Y93.9 Activity, unspecified; Y92.9 Unspecified place or not applicable; Y99.8 Other external cause status; Z03.818 Encounter for observation for suspected exposure to other biological agents ruled out; Z79.899 Other long term (current) drug therapy
CPT/HCPCS: 0241U; 36415; 80048; 80076; 82306; 83540; 83735; 84443; 84702; 85025; 85610; 85730; 86617; 86618; 86666; 86753; 87040; 87651; 99284

== ENCOUNTER 2024-11-20 11:03 | Emergency (ER) | payer MEDICAID, SELFPAY ==
[2024-11-20] VITALS (7 sets, daily range): BP systolic 104–137; BP diastolic 70–99; PULSE 70–97; RESP 16; TEMP 36.7; O2SAT 98–99; BMI 23.0
[2024-11-20 11:56] LABS: MANUAL DIFF FLAG NO
--- NOTE | 2024-11-20 11:56 | ED.NAVMDI ---
HPI - Nausea/Vomiting/Diarrhea General Chief complaint: Nausea/Vomiting/Diarrhea Stated complaint: stomach pain, nausea, vomiting dizziness Time Seen by Provider: 11/20/24 11:14 Source: patient Mode of arrival: ambulatory Limitations: no limitations History of Present Illness ED Provider: Tay iL PA-C HPI Narrative: 29-year-old female with medical history of IBS, gastroparesis, presents to the ED due to 3 days of nausea, hot flashes, fatigue. Patient states she has a history of gastroparesis follows [facility], with EGD/colonoscopy 2021 which had normal biopsy results, diagnosed with idiopathic gastroparesis in 2023. Patient was referred to [facility] for 2nd opinion, did not follow up. Patient reports 3 days ago she began experiencing nausea. Today she has experienced 3 episodes of loose watery diarrhea, and 4 episodes of vomiting after she ate her breakfast this morning. Patient denies blood in the stool or vomit, feels fatigued. Denies chest pain, shortness of breath, fever, chills, abdominal pain. Related Data Previous Rx's ?Medication ?Instructions ?Recorded loperamide 2 mg capsule (Imodium 2 mg PO Q4H PRN loose stool #14 06/27/22 A-D) caps esomeprazole magnesium 40 mg 40 mg PO DAILY #30 caps 04/08/23 capsule,delayed release (Nexium) bisacodyl 5 mg tablet,delayed 10 mg (2 x 5 mg) PO BEDTIME #60 12/08/23 release (Dulcolax (bisacodyl)) tabs metoclopramide HCl 5 mg/5 mL oral 5 mg (5 mL) PO BID 30 days #300 mL 12/24/23 solution sucralfate 100 mg/mL oral 10 ml PO BID #1,000 mL 01/26/24 suspension erythromycin 250 mg tablet 250 mg PO BID 3 days #6 tabs 04/29/24 ondansetron 4 mg disintegrating 4 mg PO DAILY PRN nausea and 08/31/24 tablet vomiting 5 days #7 tabs promethazine 12.5 mg rectal 12.5 mg [place] BID #12 ea 10/04/24 suppository amoxicillin 875 mg-potassium 1 tab PO BID 10 days #20 tabs 10/14/24 clavulanate 125 mg tablet ondansetron 4 mg disintegrating 4 mg PO BID PRN nausea and 10/21/24 tablet vomiting 30 days #20 tabs omeprazole 20 mg capsule,delayed 20 mg PO BID #60 caps 11/20/24 release ondansetron HCl 4 mg tablet 4 mg PO Q8H #10 tabs 11/20/24 Allergies Allergy/AdvReac Type Severity Reaction Status Date / Time No Known Allergies Allergy Verified 11/20/24 11:15 Review of Systems Review of Systems: CONST: Negative for fever, body aches and chills. POS hot flashes HENT: Negative for neck pain/stiffness, headache, congestion, sore throat, swelling. EYES: Negative for discharge/pain or vision changes. RESP: Negative for cough/hemoptysis and shortness of breath. CV: Negative chest pain, difficulty breathing, palpitations. ABD: Negative pain. POS nausea, vomiting. : Negative increase frequency, dysuria, blood in urine or stool. POS diarrhea MUSC: Negative for muscle aches, edema. SKIN: Negative rash, lesions/sores. NEURO: Negative headache, dizziness, weakness. Yes all other systems are reviewed and are negative [facility] Past Medical History Attestation statement: The following information was validated with the patient. Source: old records reviewed and nursing notes reviewed Surgical History History of laparoscopic cholecystectomy (11/14/22) Hx of colonoscopy History of esophagogastroduodenoscopy (EGD) History of wisdom tooth extraction Family History Family History Father Cancer Maternal Grandmother Cancer Paternal Grandfather Cancer Social History Social History Alcohol intake: never Patient Tobacco Use Status: Never used Tobacco Advance Directives: No Advance Directives Information Provided: No Physical Exam Vital Signs: Vital Signs: Last Vital Signs Temp 98.0 F 11/20/24 12:12 Pulse 83 11/20/24 12:18 Resp 16 11/20/24 12:12 BP 112/73 11/20/24 12:18 Pulse Ox 98 11/20/24 12:12 O2 Del Method Room Air 11/20/24 12:12 BMI result Body Mass Index 23.0 GENERAL APPEARANCE: ?AxOx3, generally well-appearing, no acute distress. HEENT: ?NC, AT. Dry oral MM. EOMI, clear conjunctiva, oropharynx clear. NECK: ?Supple without lymphadenopathy.? No stiffness or restricted ROM. HEART:? Normal rate and regular rhythm, normal S1/S2, no m/r/g LUNGS:? CTAB, moving air well. No crackles or wheezes are heard. ABDOMEN: ?Soft, nontender, nondistended, without rigidity, no rebound tenderness, patient without gallbladder, hypoactive bowel sounds in all 4 quadrants, no Null/turners ecchymosis, no pulsatile masses BACK: No CVAT, no obvious deformity. EXTREMITIES: ?Without cyanosis, clubbing or edema. NEUROLOGICAL: ?Grossly nonfocal. Alert and oriented, moving all 4 extremities. Observed to ambulate with normal gait. Skin: ?Warm and dry without any rash. Medications Administered Discontinued Medications Generic Name Dose Route Start Last Admin Trade Name Freq PRN Reason Stop Dose Admin Lactated Ringer's 1,000 mls @ 999 mls/hr 11/20/24 11:56 11/20/24 12:10 Lr IV 11/20/24 12:56 999 mls/hr .Q1H1M ONE Administration Loperamide HCl 2 mg 11/20/24 12:15 11/20/24 12:30 Loperamide Hcl 2 Mg Capsule PO 11/20/24 12:16 2 mg ONCE ONE Administration Ondansetron HCl 4 mg 11/20/24 11:56 11/20/24 12:07 Ondansetron Hcl 4 Mg/2 Ml Vial IVPUSH 11/20/24 11:57 4 mg ONCE ONE Administration Pantoprazole Sodium 40 mg 11/20/24 11:56 11/20/24 12:07 Pantoprazole Sodium 40 Mg/10 Ml Vial IVPUSH 11/20/24 11:57 40 mg ONCE ONE Administration Medical Decision Making Medical Decision Making MDM Narrative: 29-year-old female with medical history of IBS, gastroparesis, presents to the ED due to 3 days of nausea, hot flashes, fatigue. Patient states she has a history of gastroparesis follows [facility], with EGD/colonoscopy 2021 which had normal biopsy results, diagnosed with idiopathic gastroparesis in 2023. Patient was referred to [place] [facility] for 2nd opinion, did not follow up. Patient reports 3 days ago she began experiencing nausea. Today she has experienced 3 episodes of loose watery diarrhea, and 4 episodes of vomiting after she ate her breakfast this morning. Patient denies blood in the stool or vomit, feels fatigued. No recent antibiotic use Patient states this episode feels like gastroparesis flare, which she experiences frequently. I do not believe this is a picture of acute abdomen, patient was supposed to follow up with dedicated [facility] in [place], has not followed up. Has not followed up with GI since 2023, I believe she will benefit from follow up. VSS, normotensive, pulse rate 97, afebrile, O2 saturation 99% on room air. Physical exam of abdomen benign, Soft, nontender, nondistended, without rigidity, no rebound tenderness, patient surgically without gallbladder, hypoactive bowel sounds in all 4 quadrants, no Null/turners ecchymosis, no pulsatile masses. I do not believe advanced imaging such as CT is needed at this time, as patient is nontender on deep palpation, afebrile, without leukocytosis, lipase WNL- less likely appendicitis, pancreatitis, gastritis. Patient states this happens to her frequently, needs IV fluids for dehydration and feels better after receiving fluids. We will medicate with IV fluids, 4 mg IV Zofran, 40 mg pantoprazole, 2mg loperamide and reassess. Course 13:04- patient's nausea improved after fluids and medications, will provide 1 more L of fluid for hydration. Vital signs continued to be stable, normotensive 112/73, pulse rate 83, afebrile, 98% on room air. Labs WNL, unremarkable. At this time I believe patient's symptoms is due to IBS, flare of gastroparesis, as she feels her symptoms are consistent with her conditions, with no new or changing symptoms. We will discharge home for self-care, recommend follow up with GI and PCP. Patient is in agreement with the plan, counseled patient on strict return precautions. Will prescribe 10 pills of Zofran for patient to use during nauseous episodes. Differential Diagnosis Differential Diagnoses: The differential diagnosis associated with the presentation includes Appendicitis Pancreatitis Gastritis Gastroparesis Electrolyte imbalance Admission/Observation Consideration of admission/observation: Escalation of care including admission/observation considered Lab Data MDM Lab Attestation statement: I reviewed the patient's lab results. 11/20/24 11:52 11/20/24 11:52 Labs: Lab Results 11/20/24 Range/Units 11:52 WBC 7.0 (4.8-10.8) X10*3/uL RBC 5.08 (4.20-5.50) X10*6/uL Hgb 14.4 (12.0-16.0) g/dl Hct 42.5 (37.0-47.0) % MCV 83.7 (80.0-98.0) fL MCH 28.3 (27.0-33.0) pg MCHC 33.9 (31.0-35.0) g/dl RDW 12.3 (11.0-16.0) % Plt Count 217 (160-400) X10*3/uL MPV 10.7 (9.4-12.3) fL Immature Gran % (Auto) 0.1 (0.0-0.4) % Neut % (Auto) 71.8 (45-73) % Lymph % (Auto) 20.1 (20-40) % Mcintosh % (Auto) 4.9 (2-11) % Eos % (Auto) 2.4 (0-4) % Baso % (Auto) 0.7 (0-2) % Lymph # (Auto) 1.4 (1.2-4.9) X10*3/uL Mcintosh # (Auto) 0.3 (0.1-1.2) X10*3/uL Eos # (Auto) 0.2 (0.0-0.4) X10*3/uL Baso # (Auto) 0.1 (0.0-0.2) X10*3/uL Abs Immat Gran (auto) 0.01 (0.00-0.03) X10*3/uL Absolute Neuts (auto) 5.0 (2.0-8.3) x10*3/uL Absolute Nucleated RBC 0.000 (0.0-0.012) X10*3/uL Nucleated RBC % (auto) 0.0 (0.0-0.2) /100WBC Sodium 140 (135-145) mmol/L Potassium 3.7 (3.3-5.1) mmol/L Chloride 108 (96-108) mmol/L Carbon Dioxide 23 (22-29) mmol/L Anion Gap 13 (12-20) BUN 13 (9-16) mg/dL Creatinine 0.74 (0.5-1.4) mg/dL Estim Creat Clear Calc 91.0 Estimated GFR > 60 Random Glucose 100 (60-115) mg/dL Calcium 9.2 (8.4-10.2) mg/dL Magnesium 1.9 (1.6-2.6) mg/dL Total Bilirubin 0.6 (0.0-1.0) mg/dL AST 26 (5-31) U/L ALT 20 (0-31) U/L Alkaline Phosphatase 68 (39-117) U/L Total Protein 7.5 (6.5-8.0) g/dL Albumin 4.7 (3.5-5.0) g/dL Lipase 20 (8-78) U/L Beta HCG, Quant < 2 mIU/mL External Record Review External record reviewed: Inpatient record, Office record and Outpatient record Chronic Conditions Patient?s care impacted by: Other (IBS, gastroparesis) Discharge Plan Discharge Clinical Impression: Nausea & vomiting Patient Disposition: Home, Self-Care Instructions: Acute Nausea and Vomiting (ED) Additional Instructions: You were evaluated in the ED today due to nausea/vomiting, diarrhea. Your physical exam was reassuring, your abdomen did not have any tenderness to palpation, I do not think that you need imaging of your abdomen at this time as your blood work shows that you do not have an increased WBC count which is a marker that shows inflammation or infection. You were medicated with IV fluids, 4 mg Zofran, 40 mg Protonix which is a PPI that controls acid secretion in the stomach, with good effect of managing your symptoms. I encourage you to follow up with your PCP and GI doctor due to your visit today for further evaluation. You stated you do not like taking 40 mg of omeprazole due to it making you feel nauseous, I will prescribe you 20 mg that you can try to take twice a day which could possibly mitigate nausea after taking, or just take once a day for management. You have to take this medication every day for 2 weeks in order for it to work. Please return to the emergency department if you experience fevers over 100.4?, worsening nausea, worsening vomiting, worsening diarrhea, blood in the vomit, abdominal pain, chest pain, shortness of breath or any other new/worsening/concerning symptoms Prescriptions: New omeprazole 20 mg capsule,delayed release(DR/EC) 20 mg PO BID Qty: 60 0RF ondansetron HCl 4 mg tablet 4 mg PO Q8H Qty: 10 0RF No Action loperamide [Imodium A-D] 2 mg capsule 2 mg PO Q4H PRN (Reason: loose stool) Qty: 14 0RF Rx Instructions: Take 4 mg in the morning, followed by 2 mg after each loose stool. You can take up to a maximum of 16 mg/day. bisacodyl [Dulcolax (bisacodyl)] 5 mg tablet,delayed release (DR/EC) 10 mg PO BEDTIME Qty: 60 4RF sucralfate 100 mg/mL suspension 10 ml PO BID Qty: 1000 1RF erythromycin 250 mg tablet 250 mg PO BID 3 Days Qty: 6 0RF promethazine 12.5 mg suppository 12.5 mg [place] BID Qty: 12 1RF ondansetron 4 mg tablet,disintegrating 4 mg PO BID PRN (Reason: nausea and vomiting) 30 Days Qty: 20 2RF ondansetron 4 mg tablet,disintegrating 4 mg PO DAILY PRN (Reason: nausea and vomiting) 5 Days Qty: 7 0RF amoxicillin-pot clavulanate 875-125 mg tablet 1 tab PO BID 10 Days Qty: 20 0RF esomeprazole magnesium [Nexium] 40 mg capsule,delayed release(DR/EC) 40 mg PO DAILY Qty: 30 5RF metoclopramide HCl 5 mg/5 mL solution 5 mg PO BID 30 Days Qty: 300 0RF Rx Instructions: Take twice a day x 5 days then take a holiday for 2 days; repeat. Print Language: Somali
[2024-11-20 12:00] LABS: Hematocrit 42.5 % (37.0-47.0); Hemoglobin 14.4 g/dl (12.0-16.0); Imm Gran Abs Auto 0.01 X10*3/uL (0.00-0.03); Imm Gran Pct Auto 0.1 % (0.0-0.4); Lymphocytes Absolute Auto 1.4 X10*3/uL (1.2-4.9); Mean Corpuscular HGB Conc 33.9 g/dl (31.0-35.0); Mean Corpuscular Hemoglobin 28.3 pg (27.0-33.0); Mean Corpuscular Volume 83.7 fL (80.0-98.0); NRBC Abs Auto 0.000 X10*3/uL (0.0-0.012); NRBC Pct Auto 0.0 /100WBC (0.0-0.2); Platelet Count 217 X10*3/uL (160-400); Red Blood Count 5.08 X10*6/uL (4.20-5.50); White Blood Count 7.0 X10*3/uL (4.8-10.8)
--- OUTSIDE RECORDS SUMMARY | 2024-11-20 12:03 | XMS_ITS | Encounter Summary ---
Author Organization [facility] Address [address] [place] [address] Care Team Providers Care Machine Package Sealer Name Role Phone Ayse Warner MD Primary Care Provider [phone] Encounter Details Date Type Department Care Team (Late st Contact Info) Description 10/13/2024 Nurse Triage Adult Medicine [address] [id number] Ayse Warner MD [address] [place] [id number] Social History Tobacco Use Types Packs/Day Years Used Date Smoking Tobacco: Never Smokeless Tobacco: Never Alcohol Use Standard Drinks/Week Comments No 0 (1 standard drink = 0.6 oz pur e alcohol) Comments Unknown Sex and Gender Information Value Date Recorded Sex Assigned at Not on file Legal Sex Female 7:57 PM EST Gender Identity Not on file Sexual Orientation Not on file documented as of this encounter Plan of Treatment Not on file documented as of this encounter Visit Diagnoses Not on filedocumented in this encounter Care Teams Machine Package Sealer Relationship Specialty Start Date End Date Ayse Warner MD PCP - General Internal Medicine 03/02/24 documented as of this encounter
--- OUTSIDE RECORDS SUMMARY | 2024-11-20 12:03 | XMS_ITS | Clinical Summary ---
Author Organization [facility] Address [address] [place] [phone] Phone Care Team Providers Care Medical Specialist Name Role Phone Pcp, Unknown Primary Care Provider Unavailabl e Allergies No known active allergies Medications ondansetron (ZOFRAN-ODT) 4 MG disintegrating tablet Take 1 tablet (4 mg total) by mouth every 8 (eight) hours as needed for nausea. 8 tablet 2 Active dicyclomine (BENTYL) 10 MG capsule Take 1 capsule (10 mg total) by mouth 4 (four) times a day before meals and nightly. 12 capsule 2 Active Social History Tobacco Use Types Packs/Day Years Used Date Smoking Tobacco: Never Assessed Education Answer Date Recorded Are you interested in more education? Not on dorina e 08/24/2022 Are you concerned about learning? Not on file 08/24/2022 No 08/24/2022 No 08/24/2022 Digital Access Answer Date Recorded No 09/24/2022 No 09/24/2022 Reliable internet access at home? Not on file 09/24/2022 Device with a working camera? Not on file Comments Unknown Sex and Gender Information Value Date Recorded Sex Assigned at Not on file Legal Sex Female 4:09 PM EST Gender Identity Not on file Sexual Orientation Not on file Last Filed Vital Signs Vital Sign Reading Time Taken Comments Blood Pressure 102/50 03/08/2022 9:00 PM EST Pulse 96 03/08/2022 9:00 PM EST Temperature 36.3 C (97.3 F) 03/08/2022 5:03 PM EST Respiratory Rate 15 03/08/2022 9:00 PM EST Oxygen Saturation 99% 03/08/2022 9:00 PM EST Inhaled Oxygen Concentration - - Weight - - Height 160 cm (5' 3 ) 03/08/2022 5:03 PM EST Body Mass Index - - Plan of Treatment Not on file Medical Devices Not on file Insurance [employer] Care Teams Medical Specialist Relationship Specialty Start Date End Date Pcp, Unknown PCP - General 03/08/22 Additional Source Comments The information contained in this document represents components of the legal health record. It is not the complete legal health record.[facility]
[2024-11-20] MEDS: Lactated Ringers 1,000 ML 999 ML IV ×2 (12:10→13:09)
[2024-11-20 12:32] LABS: Lipase 20 U/L (8-78)
--- NOTE | 2024-11-20 12:36 | PC.NURSE ---
Patient's CMP results unable to be viewed in the chart, called lab, spoke to Sita, they will repost the results, should show up in a few minutes
[2024-11-20 12:41] LABS: Alanine Aminotransferase 20 U/L (0-31); Albumin Level 4.7 g/dL (3.5-5.0); Alkaline Phosphatase 68 U/L (39-117); Anion Gap 13 (12-20); Aspartate Amino Transferase 26 U/L (5-31); Blood Urea Nitrogen 13 mg/dL (9-16); Calcium 9.2 mg/dL (8.4-10.2); Carbon Dioxide 23 mmol/L (22-29); Chloride 108 mmol/L (96-108); Creatinine Clr Calc Pharmacy 91.0; Estimated Glomerular Filt Rate > 60; Magnesium 1.9 mg/dL (1.6-2.6); Potassium 3.7 mmol/L (3.3-5.1); Sodium 140 mmol/L (135-145); Total Protein 7.5 g/dL (6.5-8.0)
== END 2024-11-20 14:18 | disposition home or self-care (01) ==
PROVIDERS: Emergency Provider Emergency Medicine
DX: R11.2 Nausea with vomiting, unspecified (principal); R19.7 Diarrhea, unspecified; Z79.899 Other long term (current) drug therapy
CPT/HCPCS: 36415; 80053; 83690; 83735; 84702; 85025; 96361; 96374; 96375; 99283; 99284; J2405; J2470; J7120

== ENCOUNTER 2025-04-03 15:00 | Emergency (ER) | payer OTHER, SELFPAY ==
[2025-04-03 15:11] VITALS: BP 126/70; PULSE 88; RESP 18; TEMP 36.6; O2SAT 98; BMI 23.4
--- NOTE | 2025-04-03 15:11 | ED.ABDPAIN ---
HPI - Abdominal Pain General Chief Complaint: Abdominal Pain Stated Complaint: stomach pain Time Seen by Provider: 04/03/25 21:00 Source: patient Mode of arrival: ambulatory Limitations: no limitations History of Present Illness ED Provider: Dr. Trinity Queen HPI narrative: 30-year-old female with a known history of gastroparesis who presents to the ED with three days of worsening nausea, vomiting, and minimal oral intake. She reports recurrent flares necessitating frequent ED visits for IV fluids, with the most recent visit in October and a prior visit in September for easy bruising. During the current episode she is unable to tolerate anything beyond small amounts of mashed potatoes and vomits even after smoothies. Vomiting is sudden and severe, often accompanied by presyncope. She denies current abdominal pain, but when pain does occur it is rare and localized to the mid-left abdomen. She denies fever, diarrhea, dysuria, hematuria, or significant changes from her baseline chronic mild constipation (reduced stool frequency related to low fiber intake). Home medications include sublingual ondansetron as needed and occasional famotidine; she avoids omeprazole due to nausea and has had intolerable adverse effects (severe anxiety, ?crawling on skin?) with prior metoclopramide use, which she requests be considered an intolerance/allergy. No other daily medications. No hospitalizations for gastroparesis; cholecystectomy five years ago did not improve symptoms and she feels symptoms worsened post-op. She reports that at the time of her cholecystectomy, benign lesions were found on her gallbladder and kidney, though she cannot recall the specific term used. Social history negative for alcohol, tobacco, cannabis, or other drug use. She feels stress and finals may contribute. No new travel, sick contacts, or unusual food exposures. Related Data Previous Rx's ?Medication ?Instructions ?Recorded loperamide 2 mg capsule (Imodium 2 mg PO Q4H PRN loose stool #14 06/27/22 A-D) caps esomeprazole magnesium 40 mg 40 mg PO DAILY #30 caps 04/08/23 capsule,delayed release (Nexium) bisacodyl 5 mg tablet,delayed 10 mg (2 x 5 mg) PO BEDTIME #60 12/08/23 release (Dulcolax (bisacodyl)) tabs metoclopramide HCl 5 mg/5 mL oral 5 mg (5 mL) PO BID 30 days #300 mL 12/24/23 solution sucralfate 100 mg/mL oral 10 ml PO BID #1,000 mL 01/26/24 suspension erythromycin 250 mg tablet 250 mg PO BID 3 days #6 tabs 04/29/24 ondansetron 4 mg disintegrating 4 mg PO DAILY PRN nausea and 08/31/24 tablet vomiting 5 days #7 tabs amoxicillin 875 mg-potassium 1 tab PO BID 10 days #20 tabs 10/14/24 clavulanate 125 mg tablet omeprazole 20 mg capsule,delayed 20 mg PO BID #60 caps 11/20/24 release ondansetron 4 mg disintegrating 4 mg PO BID PRN nausea and 01/04/25 tablet vomiting 30 days #20 tabs ondansetron HCl 4 mg tablet 4 mg PO Q8H #10 tabs 01/04/25 promethazine 12.5 mg rectal 12.5 mg [place] BID #12 ea 01/04/25 suppository ondansetron 4 mg disintegrating 4 mg PO Q8H PRN nausea and 04/05/25 tablet vomiting #30 tabs Allergies Allergy/AdvReac Type Severity Reaction Status Date / Time No Known Allergies Allergy Verified 04/03/25 15:13 Review of Systems Review of Systems as per HPI, full review of systems performed and negative but for the above mentioned pertinent positives and negatives. [facility] Past Medical History Surgical History History of laparoscopic cholecystectomy (11/14/22) Hx of colonoscopy History of esophagogastroduodenoscopy (EGD) History of wisdom tooth extraction Family History Family History Father Cancer Maternal Grandmother Cancer Paternal Grandfather Cancer Social History Social History Alcohol intake: never Patient Tobacco Use Status: Never used Tobacco Smoked in Last 30 Days: No Use of substances other than those prescribed or required for medical reasons: No Advance Directives: No Advance Directives Information Provided: Yes Do you have a plan to hurt others: No Plan Patient : No Physical Exam ED Exam Exam: GENERAL: Well-Appearing, conversant, no acute distress. SKIN: Normal skin color for ethnicity, warm, dry, no rashes noted. HEENT:? Normocephalic, atraumatic, no stridor, posterior oropharynx nonerythematous, dentition intact, EOMI. NECK: Soft, supple, full ROM, midline structures nontender, no step-offs, no deformities, no lymphadenopathy. CHEST: Heart regular rate and rhythm, no murmurs, symmetric chest rise and fall. PULMONARY: Clear to auscultation bilaterally, no labored breathing, no wheezes/rhales/rhonchi. ABDOMINAL: Soft, nondistended, nontender, positive bowel sounds in all quadrants. : Deferred. MUSCULOSKELETAL: Normal tone, full range of motion, no deformities, no peripheral edema. NEURO: Alert and oriented x3, CN II through XII intact, equal strength and sensation bilateral upper and lower extremities, no focal neurologic deficits.? PSYCHIATRIC: Normal affect, fluid speech, good eye contact and appropriate demeanor. Vital Signs: Vital Signs - 24 hr 04/03/25 15:11 04/03/25 20:00 04/03/25 23:11 Temperature 98 F 98.5 F Pulse Rate 88 77 Respiratory Rate 18 22 H Blood Pressure 126/70 119/74 131/66 Pulse Oximetry 98 98 99 Oxygen Delivery Method Room Air Room Air Room Air BMI result Body Mass Index 23.4 Course Course Course Narrative: This is a Rapid Medical Exam performed in triage by Alyse Dong PA-C. Full HPI, ROS and PE to be performed by primary ED provider. 30 yo F w/ pmhx gastroparesis presenting to the ED c/o abdominal pain, nausea and vomiting x3 days. reports decreased PO intake. denies diarrhea PE: NAD, nontoxic appearing, ambulating w/steady gait Plan: labs, UA Medical Decision Making Medical Decision Making MDM Narrative: 30-year-old female with known gastroparesis presenting with typical flare of nausea/vomiting without objective evidence of dehydration or infection. Differential diagnosis includes surgical emergency such as obstruction, enteritis, hyperglycemia, acidosis, food or drug ingestion, pancreatitis, CVA, allergic reaction such as anaphylaxis, cannabis hyperemesis syndrome or cyclic vomiting syndrome, among many others.? Patient is not showing signs of acute dehydration or hemodynamic instability.? They are not having associated abdominal pain. ? Broad-based work-up was initiated based on above history and physical exam. Laboratory studies are reassuring; abdominal exam consistent with gastroparesis, quiet abd sounds/nontender to palpation. Problem #1: Gastroparesis flare with nausea/vomiting Assessment: Three-day flare characterized by intractable nausea/vomiting and minimal PO intake. Labs normal, no laboratory dehydration, bowel sounds quiet. Plan: - Administer antiemetic medication in ED (ondansetron as tolerated; avoid metoclopramide due to prior adverse reaction). Citation: Guidelines support metoclopramide as first-line antiemetic/prokinetic for gastroparesis, with ondansetron as adjunct; metoclopramide should be avoided in patients with prior adverse reactions. - IV fluid bolus for symptomatic support despite normal labs. - Monitor response in ED; reassess after medications and fluids. Problem #2: Possible contaminated urine sample Assessment: UA with squamous cells, no urinary symptoms, afebrile?findings most consistent with contamination; low suspicion for UTI. Plan: - No antibiotics indicated at this time. Citation: Evidence supports withholding antibiotics for asymptomatic bacteriuria in non adults with contaminated urine samples and no urinary symptoms or fever. Problem #3: History of easy bruising of unclear etiology Assessment: Patient reports year-long history; prior evaluations considering autoimmune etiology; not acutely symptomatic. Plan: - No acute intervention in ED today. - Advise continued outpatient workup with PCP/hematology as previously arranged. Disposition: Patient to receive IV fluids and antiemetics in ED. Will discharge home when symptoms improved and able to tolerate oral intake. Differential Diagnosis Differential Diagnoses: The differential diagnosis associated with the presentation includes (as above) Admission/Observation Consideration of admission/observation: Escalation of care including admission/observation considered Lab Data MDM Lab Attestation statement: I reviewed the patient's lab results. 04/03/25 15:23 04/03/25 15:23 Labs: Lab Results 04/03/25 04/03/25 Range/Units 15:23 15:48 WBC 9.6 (4.8-10.8) X10*3/uL RBC 5.03 (4.20-5.50) X10*6/uL Hgb 14.3 (12.0-16.0) g/dl Hct 43.0 (37.0-47.0) % MCV 85.5 (80.0-98.0) fL MCH 28.4 (27.0-33.0) pg MCHC 33.3 (31.0-35.0) g/dl RDW 12.2 (11.0-16.0) % Plt Count 257 (160-400) X10*3/uL MPV 10.2 (9.4-12.3) fL Immature Gran % (Auto) 0.2 (0.0-0.4) % Neut % (Auto) 74.7 H (45-73) % Lymph % (Auto) 16.6 L (20-40) % [place] % (Auto) 5.3 (2-11) % Eos % (Auto) 2.1 (0-4) % Baso % (Auto) 1.1 (0-2) % Lymph # (Auto) 1.6 (1.2-4.9) X10*3/uL [place] # (Auto) 0.5 (0.1-1.2) X10*3/uL Eos # (Auto) 0.2 (0.0-0.4) X10*3/uL Baso # (Auto) 0.1 (0.0-0.2) X10*3/uL Abs Immat Gran (auto) 0.02 (0.00-0.03) X10*3/uL Absolute Neuts (auto) 7.2 (2.0-8.3) x10*3/uL Absolute Nucleated RBC 0.000 (0.0-0.012) X10*3/uL Nucleated RBC % (auto) 0.0 (0.0-0.2) /100WBC Sodium 140 (135-145) mmol/L Potassium 4.1 (3.3-5.1) mmol/L Chloride 108 (96-108) mmol/L Carbon Dioxide 24 (22-29) mmol/L Anion Gap 12 (12-20) BUN 12 (9-16) mg/dL Creatinine 0.76 (0.5-1.4) mg/dL Estim Creat Clear Calc 84.0 Estimated GFR > 60 Random Glucose 100 (60-115) mg/dL Calcium 9.1 (8.4-10.2) mg/dL Magnesium 1.9 (1.6-2.6) mg/dL Total Bilirubin 0.6 (0.0-1.0) mg/dL Direct Bilirubin 0.2 (0.0-0.5) mg/dL AST 27 (5-31) U/L ALT 17 (0-31) U/L Alkaline Phosphatase 68 (39-117) U/L Total Protein 7.1 (6.5-8.0) g/dL Albumin 4.7 (3.5-5.0) g/dL Lipase 23 (8-78) U/L Urine Color Yellow Urine Appearance Cloudy Urine pH 5.5 (5.0-9.0) Ur Specific [place] >= 1.030 H (1.005-1.025) Urine Protein Trace (Neg-Trace) mg/dL Urine Glucose (UA) Negative (Negative) mg/dL Urine Ketones 40 (Negative) mg/dL Urine Blood Trace H (Negative) Urine Nitrite Negative (Negative) Ur Leukocyte Esterase Trace H (Negative) Urine RBC 0-2 (0-2) /HPF Urine WBC 6-10 H (0-5) /HPF Ur Squamous Epith Cells 11-20 (0-2) /HPF Urine Bacteria 3+ (None Seen) Hyaline Casts 3-5 (0-2) /LPF Urine Test NEGATIVE (NEGATIVE) External Record Review External record reviewed: Inpatient record Prescription Management I considered prescription management with: Other (antiemetics) Chronic Conditions Patient?s care impacted by: Other (gastroparesis) Social Determinants Patient?s care significantly limited by Social Determinants of Health including: Other Social Determinant of Health Medications Administered Discontinued Medications Generic Name Dose Route Start Last Admin Trade Name Jeremy PRN Reason Stop Dose Admin Diazepam 5 mg 04/03/25 23:07 04/03/25 23:14 Diazepam 10 Mg/2 Ml Cartridge IVPUSH 04/03/25 23:08 5 mg STAT STA Administration Diphenhydramine HCl 50 mg 04/03/25 22:25 04/03/25 22:28 Diphenhydramine Hcl 50 Mg/Ml Vial IVPUSH 04/03/25 22:26 50 mg ONCE ONE Administration Famotidine 20 mg 04/03/25 21:22 04/03/25 22:11 Famotidine/Pf 20 Mg/2 Ml Vial IVPUSH 04/03/25 21:23 20 mg ONCE ONE Administration Lactated Ringer's 1,000 mls @ 999 mls/hr 04/03/25 21:20 04/03/25 23:16 Lr IV 04/03/25 22:20 Infused .Q1H1M ONE Infusion Prochlorperazine Edisylate 10 mg 04/03/25 21:20 04/03/25 22:11 Prochlorperazine Edisylate 10 Mg/2 Ml Vial IVPUSH 04/03/25 21:21 10 mg ONCE ONE Administration Discharge Plan Discharge Clinical Impression: Nausea & vomiting, Gastroparesis Patient Disposition: Home, Self-Care Instructions: Gastroparesis (ED) Additional Instructions: Continue to use antiemetics as needed at home for nausea and vomiting. You should try to take more antacids as significant stomach acid production can contribute to worsening nausea and vomiting. This is especially true in the setting of high stress and high cortisol levels which you has been experiencing lately. Try to eat a bland diet. Try to drink as much fluid as possible and rest when you can. Prescriptions: New ondansetron 4 mg tablet,disintegrating 4 mg PO Q8H PRN (Reason: nausea and vomiting) Qty: 30 0RF No Action loperamide [Imodium A-D] 2 mg capsule 2 mg PO Q4H PRN (Reason: loose stool) Qty: 14 0RF Rx Instructions: Take 4 mg in the morning, followed by 2 mg after each loose stool. You can take up to a maximum of 16 mg/day. bisacodyl [Dulcolax (bisacodyl)] 5 mg tablet,delayed release (DR/EC) 10 mg PO BEDTIME Qty: 60 4RF sucralfate 100 mg/mL suspension 10 ml PO BID Qty: 1000 1RF erythromycin 250 mg tablet 250 mg PO BID 3 Days Qty: 6 0RF promethazine 12.5 mg suppository 12.5 mg AZ BID Qty: 12 1RF ondansetron HCl 4 mg tablet 4 mg PO Q8H Qty: 10 0RF ondansetron 4 mg tablet,disintegrating 4 mg PO BID PRN (Reason: nausea and vomiting) 30 Days Qty: 20 2RF ondansetron 4 mg tablet,disintegrating 4 mg PO DAILY PRN (Reason: nausea and vomiting) 5 Days Qty: 7 0RF amoxicillin-pot clavulanate 875-125 mg tablet 1 tab PO BID 10 Days Qty: 20 0RF omeprazole 20 mg capsule,delayed release(DR/EC) 20 mg PO BID Qty: 60 0RF esomeprazole magnesium [Nexium] 40 mg capsule,delayed release(DR/EC) 40 mg PO DAILY Qty: 30 5RF metoclopramide HCl 5 mg/5 mL solution 5 mg PO BID 30 Days Qty: 300 0RF Rx Instructions: Take twice a day x 5 days then take a holiday for 2 days; repeat. Interventions: ED Discharge Assessment Last Done: 04/04/25 00:52 Discharge Date/Time: 04/04/25 00:54 Print Language: Armenian
[2025-04-03 15:28] LABS: Hematocrit 43.0 % (37.0-47.0); Hemoglobin 14.3 g/dl (12.0-16.0); Imm Gran Abs Auto 0.02 X10*3/uL (0.00-0.03); Imm Gran Pct Auto 0.2 % (0.0-0.4); Lymphocytes Absolute Auto 1.6 X10*3/uL (1.2-4.9); MANUAL DIFF FLAG NO; Mean Corpuscular HGB Conc 33.3 g/dl (31.0-35.0); Mean Corpuscular Hemoglobin 28.4 pg (27.0-33.0); Mean Corpuscular Volume 85.5 fL (80.0-98.0); NRBC Abs Auto 0.000 X10*3/uL (0.0-0.012); NRBC Pct Auto 0.0 /100WBC (0.0-0.2); Platelet Count 257 X10*3/uL (160-400); Red Blood Count 5.03 X10*6/uL (4.20-5.50); White Blood Count 9.6 X10*3/uL (4.8-10.8)
[2025-04-03 15:42] LABS: Alanine Aminotransferase 17 U/L (0-31); Albumin Level 4.7 g/dL (3.5-5.0); Alkaline Phosphatase 68 U/L (39-117); Anion Gap 12 (12-20); Aspartate Amino Transferase 27 U/L (5-31); Blood Urea Nitrogen 12 mg/dL (9-16); Calcium 9.1 mg/dL (8.4-10.2); Carbon Dioxide 24 mmol/L (22-29); Chloride 108 mmol/L (96-108); Creatinine Clr Calc Pharmacy 84.0; Estimated Glomerular Filt Rate > 60; Lipase 23 U/L (8-78); Magnesium 1.9 mg/dL (1.6-2.6); Potassium 4.1 mmol/L (3.3-5.1); Sodium 140 mmol/L (135-145); Total Protein 7.1 g/dL (6.5-8.0)
[2025-04-03 15:58] LABS: Appearance Urine Cloudy; Glucose Urine UA Negative (Negative); PH 5.5 (5.0-9.0); Specific Gravity - Urine >= 1.030 (1.005-1.025); UMIC TRIGGER UACC YES
[2025-04-03 15:59] LABS: UPreg QC Valid YES
[2025-04-03 16:02] LABS: UACC Culture Trigger YES
--- OUTSIDE RECORDS SUMMARY | 2025-04-03 18:37 | XMS_ITS | Clinical Summary ---
Author Organization [address] Address [address] [place] [phone] Phone Care Team Providers Care Solar Panel Technician Name Role Phone Ayse Warner MD Primary Care Provider [phone] Allergies No known active allergies Medications promethazine (PHENERGAN) 12.5 mg suppository 4 Active ondansetron ODT (ZOFRAN-ODT) 4 mg disintegrating tablet Take 1 tablet (4 mg total) by mouth every 8 (eight) hours if needed. 3 Active Active Problems Problem Noted Date Diagnosed Date Gallbladder polyp 10/28/2022 Overview (02/12/2024): Follows up with Dr. Harry Torres at [facility]. 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 [...] 117 04/23/2024 5:57 AM EST Temperature 37.7 C (99.9 F) 04/23/2024 5:57 AM EST Respiratory Rate 18 04/23/2024 5:57 AM EST [...] 5 Years) and At-Risk Patients (6 to 49 Years) (1 of 2 - PCV) 02/16/2012 HPV Vaccines (1 - 3-dose SCD M series) 02/16/2020 Cervical Cancer Screening: P ap Smear 07/24/2020 07/24/2017 Hepatitis C Screening 05/28/2023 Social Influencers of Health Screening 05/28/2023 Depression Screening 04/28/2024 07/11/2023 COVID-19 Vaccine (1 - 2024-2 6 season) 2024 Influenza Vaccine (#1) 2024 Cholesterol Screening (Lipid Panel) 10/12/2027 10/11/2022 DTaP,Tdap,and Td Vaccines (3 - Td or Tdap) 02/01/2031 02/01/2021, 03/10/2018 RSV Immunization Adult Patients (1 - 1-dose 75+ series) 02/16/2068 HIV Screening Completed 10/11/2022 HIB Vaccines Aged [...] Maintenance Results * Depression Screening (07/11/2023) Pathologist [facility] Depression Screening abstracted Historical Provider HEALTH MAINTENANCE Final Result * HIV Screening (10/11/2022) Pathologist [facility] HIV Screening abstracted Historical Provider HEALTH MAINTENANCE Final Result * Lipid panel (10/11/2022) Pathologist [facility] LDL/HDL Ratio 3 0 - 4 Triglycerides 72 0 - 150 mg/dL Cholesterol 146 0 - 200 mg/dL HDL 54 >=40 mg/dL LDL Cholesterol 78 0 - 100 mg/dL Blood Venous blood specimen / Unknown Historical Provider LAB BLOOD ORDERABLES Maeve l Result * Pap Smear (07/24/2017) HM Pap smear no interpretation , abstracted us Historical Provider HEALTH MAINTENANCE Final Result from Last 3 Months or Most Recently Relevant to Health Maintenance Insurance [facility] [employer] PLAN MEDICAID - [place] Care Teams Solar Panel Technician Relationship Specialty Start Date End Date Ayse Warner MD PCP - General Internal Medicine 03/02/24
--- OUTSIDE RECORDS SUMMARY | 2025-04-03 18:37 | XMS_ITS | Encounter Summary ---
Author Organization [employer] [facility] Prior to 02/27/2024 Address [address] [place] [address] Care Team Providers Care Plumbing Assembler Installer Name Role Phone Julieth Acosta MD Primary Care Provider Unavail able Ayse Warner MD Primary Care Provider [phone] Encounter Details Date Type Department Care Team Description 12/10/2017 Telephone Adult Medicine [address] [address] Julieth Acosta MD Social History Tobacco Use Types Packs/Day Years Used Date Smoking Tobacco: Never Smokeless Tobacco: Never Alcohol Use Standard Drinks/Week Comments No 0 (1 standard drink = 0.6 oz pur e alcohol) Sex Assigned at Date Recorded Not on file Job Start Date Occupation Industry Not on file Not on file Not on file documented as of this encounter Miscellaneous Notes * Telephone Encounter - Carolin Romy - 12/10/2017 12:30 PM EDT Called pt to let her know to fax the form to [phone] and attention to jaylene was unable to each pt went straight to voicemail and her mailbox is full documented in this encounter Plan of Treatment Not on file documented as of this encounter Visit Diagnoses Not on filedocumented in this encounter Care Teams Plumbing Assembler Installer Relationship Specialty Start Date End Date Julieth Acosta MD PCP - General Internal Medicine 04/24/17 03/14/22 Ayse Warner MD [address] [place] [id number] PCP - General Internal Medicine 03/15/22 documented as of this encounter
--- OUTSIDE RECORDS SUMMARY | 2025-04-03 18:37 | XMS_ITS ---
Author Name [facility] Organization Unknown Care Team Organization Name Specialty Phone Email Start Date End Da te [facility] Ayse Warner Primary Care 09/02/2022 024 [facility] Eliza Dunbar Primary Care 03/05/2022
--- OUTSIDE RECORDS SUMMARY | 2025-04-03 18:37 | XMS_ITS | Encounter Summary ---
Author Organization [employer] [facility] Prior to 02/27/2024 Address [address] [place] [address] Care Team Providers Care Hereditary Cancer Program Coordinator Name Role Phone Ayse Warner MD Primary Care Provider [phone] Encounter Details Date Type Department Care Team Description 08/20/2022 Refill Adult Medicine [facility] [address] [place] [id number] Ayse Warner MD [address] [place] [phone] Social History Tobacco Use Types Packs/Day Years Used Date Smoking Tobacco: Never Smokeless Tobacco: Never Alcohol Use Standard Drinks/Week Comments No 0 (1 standard drink = 0.6 oz pur e alcohol) Sex Assigned at Date Recorded Not on file Job Start Date Occupation Industry Not on file Not on file Not on file COVID-19 Exposure Response Date Recorded In the last 10 days, have josé jones been in contact with someone who was confirmed or suspected to have Coronavirus/COVID-19? No / Unsure 08/07/2022 4:16 PM EDT documented as of this encounter Miscellaneous Notes * Telephone Encounter - Jazmine Pennington - 08/21/2022 1:42 PM EDT Message left for patient to return my call. Ext [phone] * Telephone Encounter - Ayse Warner MD - 08/21/2022 1:26 PM EDT Patient was given a prescription as a one-time, future refills should come from gastroenterology. I will give a 14-day supply and after that patient should request from gastroenterology and future referrals should be requested from them * Telephone Encounter - Malinda Lozano M.A. - 08/21/2022 9:33 AM EDT Spoke with patient, she only has a few tabs left. She usually requests this from her GI doctor but they are away this week and I don't want to run out. She states shes taking 2 tabs a day and 1 at night if she wakes up, I'm always nauseaus when I wake up at night. To Dr. Warner for review. documented in this encounter Plan of Treatment Not on file documented as of this encounter Visit Diagnoses Not on filedocumented in this encounter Care Teams Hereditary Cancer Program Coordinator Relationship Specialty Start Date End Date Ayse Warner MD [address] [place] [phone] PCP - General Internal Medicine 03/15/22 documented as of this encounter
--- OUTSIDE RECORDS SUMMARY | 2025-04-03 18:37 | XMS_ITS | Clinical Summary ---
Author Organization [facility] Address [address] [place] [phone] Phone Care Team Providers Care Ticket Printer Name Role Phone Pcp, Unknown Primary Care [...] file Medical Devices Not on file Insurance [employer] Care Teams Ticket Printer Relationship Specialty Start Date End Date Pcp, Unknown PCP - General 03/08/22 Additional Source Comments The information contained in this document represents components of the legal health record. It is not the complete legal health record.[facility]
--- OUTSIDE RECORDS SUMMARY | 2025-04-03 18:37 | XMS_ITS | Encounter Summary ---
Author Organization [employer] [facility] Prior to 02/27/2024 Address [address] [place] [address] Care Team Providers Care Glass Sagger Name Role Phone Ayse Warner MD Primary Care Provider [phone] Encounter Details Date Type Department Care Team Description 10/25/2022 Pt. Non Urgent Medical Question Adult Medicine [address] [address] Valentina Mcduffie PA-C [address] [place] [phone] Social History Tobacco Use Types Packs/Day Years [...] suspected to have Coronavirus/COVID-19? No / Unsure 10/11/2022 2:20 PM EDT documented as of this encounter Miscellaneous Notes * Telephone Encounter - Rachel Man M.A. - 10/25/2022 1:19 PM EDTFrom: Ad Gooden To: Rosetta Mcduffie Sent: 10/25/2022 12:39 PM EDT Subject: Referrals Good afternoon, Nobody has called me in regards to my referrals documented in this encounter Plan of Treatment Not on file documented as of this encounter Visit Diagnoses Not on filedocumented in this encounter Care Teams Glass Sagger Relationship Specialty Start Date End Date Ayse Warner MD [address] [place] [id number] PCP - General Internal Medicine 03/15/22 documented as of this encounter
--- OUTSIDE RECORDS SUMMARY | 2025-04-03 18:37 | XMS_ITS | Encounter Summary ---
Author Organization [facility] Prior to 02/27/2024 Address [address] [place] [address] Care Team Providers Care Molding Fitter Name Role Phone Ayse Warner MD Primary Care Provider [phone] Encounter Details Date Type Department Care Team Description 04/08/2023 Gelatin Dynamite Packing Operator Report Medical Records [address] [place] [address] Abstract, Provider Social History Tobacco Use Types Packs/Day Years [...] on filedocumented in this encounter Care Teams Molding Fitter Relationship Specialty Start Date End Date Ayse Warner MD [address] [place] [address] PCP - General Internal Medicine 03/15/22 documented as of this encounter
--- OUTSIDE RECORDS SUMMARY | 2025-04-03 18:37 | XMS_ITS | Encounter Summary ---
Author Organization [employer] [facility] Prior to 02/27/2024 Address [address] [place] [address] Care Team Providers Care Tank Car Cleaner Name Role Phone Julieth Acosta MD Primary Care Provider Unavail able Ayse Warner MD Primary Care Provider [phone] Encounter Details Date Type Department Care Team Description 08/16/2017 Release of Information Medical Records [address] [place] [id number] Abstract, Provider Social History Tobacco Use Types [...] on filedocumented in this encounter Care Teams Tank Car Cleaner Relationship Specialty Start Date End Date Julieth Acosta MD PCP - General Internal Medicine 04/24/17 03/14/22 Ayse Warner MD [address] [place] [id number] PCP - General Internal Medicine 03/15/22 documented as of this encounter
--- OUTSIDE RECORDS SUMMARY | 2025-04-03 18:37 | XMS_ITS | Encounter Summary ---
Author Organization [facility] Prior to 02/27/2024 Address [address] [place] [address] Care Team Providers Care Laundry Folder Name Role Phone Julieth Acosta MD Primary Care Provider Unavail able Ayse Warner MD Primary Care Provider [phone] Reason for Referral * Radiology Services (Routine) - Authorized/Booked Specialty Diagnoses / Procedures Referred By Karely almonte Referred To Contact Radiology Diagnoses Hepatic adenoma Procedures MRI OF ABDOMEN NO CONTRAST Julieth Acosta MD [address] [place] [address]/[address] [address] Referral ID Status Reason Start Date Expiration Date V isits Requested Visits Authorized NO AUTH REQ Authorized/B ooked 01/26/2018 01/26/2019 1 1 Encounter Details Date Type Department Care Team Description 08/22/2017 Telephone Adult Medicine [address] [address] Julieth Acosta MD Social History Tobacco Use [...] encounter Miscellaneous Notes * Telephone Encounter - Julieth Acosta MD - 08/22/2017 8:09 AM EDT Left voicemail, advised that MRI findings were consistent with a benign liver adenoma we will repeat testing in approximately 6 months just to verify its not increasing in size. documented in this encounter Plan of Treatment Not on file documented as of this encounter Visit Diagnoses Diagnosis Hepatic adenoma- Primary Benign neoplasm of liver and biliary passages documented in this encounter Care Teams Laundry Folder Relationship Specialty Start Date End Date Julieth Acosta MD PCP - General Internal Medicine 04/24/17 03/14/22 Ayse Warner MD [address] [place] [address] PCP - General Internal Medicine 03/15/22 documented as of this encounter
--- OUTSIDE RECORDS SUMMARY | 2025-04-03 18:37 | XMS_ITS | Encounter Summary ---
Author Organization [facility] Prior to 02/27/2024 Address [address] [place] [address] Care Team Providers Care Smoke Chaser Name Role Phone Ayse Warner MD Primary Care Provider [phone] Reason for Visit * Reason Onset Date Comments nausea 11/21/2022 S/p cholecystect helena Encounter Details Date Type Department Care Team Description 11/21/2022 Pt. Non Urgent Medical Question Adult Medicine [address] [address] Valentina Mcduffie PAArsalanC [address] [place] [id number] Social History Tobacco Use Types Packs/Day Years [...] encounter Miscellaneous Notes * Telephone Encounter - Sheila Kaiser M.A. - 11/21/2022 11:44 AM EDTFrom: Ad Gooden To: Rosetta Mcduffie Sent: 11/21/2022 11:28 AM EDT Subject: Naseous medicine Zaira, I was curious if I could get a refill on the naseous meds!? I got my gallbladder removed on and my naseous is worse then it has ever been and I desperately need something to help. documented in this encounter Plan of Treatment Not on file documented as of this encounter Visit Diagnoses Not on filedocumented in this encounter Care Teams Smoke Chaser Relationship Specialty Start Date End Date Ayse Warner MD [address] [place] [id number] PCP - General Internal Medicine 03/15/22 documented as of this encounter
--- OUTSIDE RECORDS SUMMARY | 2025-04-03 18:37 | XMS_ITS | Encounter Summary ---
Author Organization [facility] Prior to 02/27/2024 Address [address] [place] [address] Care Team Providers Care Fabrication Welder Name Role Phone Ayse Warner MD Primary Care Provider Encounter Details Date Type Department Care Team Description 03/12/2023 Manager Chinese Report Medical Records [address] [place] [address] Abstract, Provider Social History Tobacco Use Types [...] on filedocumented in this encounter Care Teams Fabrication Welder Relationship Specialty Start Date End Date Ayse Warner MD [address] [place] [address] PCP - General Internal Medicine 03/15/22 documented as of this encounter
--- OUTSIDE RECORDS SUMMARY | 2025-04-03 18:37 | XMS_ITS | Encounter Summary ---
Author Organization [facility] Prior to 02/27/2024 Address [address] [place] [address] Care Team Providers Care Japanese Interpreter Name Role Phone Julieth Acosta MD Primary Care Provider Unavail able Ayse Warner MD Primary Care Provider [phone] Reason for Visit * Reason Onset Date Comments APPOINTMENT 07/29/2019 Encounter Details Date Type Department Care Team Description 07/29/2019 Telephone Adult Medicine [address] [address] Julieth Acosta MD APPOINTMENT Social History Tobacco Use Types Packs/Day Years [...] encounter Miscellaneous Notes * Telephone Encounter - Stormy Mcdaniels R.N. - 07/29/2019 8:43 AM EDT Pt will agree to audio visit , * Telephone Encounter - Kathe Verma - 07/29/2019 8:38 AM EDT Patient states she is returning phone call from Stormy. She has an appointment for 1pm and was told to call back before her appointment today. documented in this encounter Plan of Treatment Not on file documented as of this encounter Visit Diagnoses Not on filedocumented in this encounter Care Teams Japanese Interpreter Relationship Specialty Start Date End Date Julieth Acosta MD PCP - General Internal Medicine 04/24/17 03/14/22 Ayse Warner MD [address] [place] [id number] PCP - General Internal Medicine 03/15/22 documented as of this encounter
--- OUTSIDE RECORDS SUMMARY | 2025-04-03 18:37 | XMS_ITS | Encounter Summary ---
Author Organization [employer] [facility] Prior to 02/27/2024 Address [address] [place] [address] Care Team Providers Care Beamer Operator Name Role Phone Ayse Warner MD Primary Care Provider [phone] Encounter Details Date Type Department Care Team Description 04/12/2023 Refill [place] [facility] [address] [place] [address] Ayse Warner MD [address] [place] [address] Social History Tobacco Use Types Packs/Day Years [...] encounter Miscellaneous Notes * Telephone Encounter - Ayse Warner MD - 04/14/2023 10:39 AM EST She was advised to follow with gastroenterology , I did place a referral. I believe she was following with [facility]. If she needs a office visit, you can schedule her with me, she does not need to get an updated Gi diagnosis for us to see her, however do want her to follow with gastro. * Telephone Encounter - Caren Calvo M.A. - 04/14/2023 9:39 AM EST Last office visit 12/16/22 Pt canceled and no showed last 2 appts, needs to schedule appt before we can process documented in this encounter Plan of Treatment Not on file documented as of this encounter Visit Diagnoses Not on filedocumented in this encounter Care Teams Beamer Operator Relationship Specialty Start Date End Date Ayse Warner MD [address] [place] [id number] PCP - General Internal Medicine 03/15/22 documented as of this encounter
--- OUTSIDE RECORDS SUMMARY | 2025-04-03 18:37 | XMS_ITS | Encounter Summary ---
Author Organization [facility] Prior to 02/27/2024 Address [address] [place] [address] Care Team Providers Care Cone Classifier Tender Name Role Phone Julieth Acosta MD Primary Care Provider Unavail able Ayse Warner MD Primary Care Provider [phone] Encounter Details Date Type Department Care Team Description 05/19/2017 Release of Information Medical Records [address] [place] [id number] Abstract, Provider Social History Tobacco Use Types [...] on filedocumented in this encounter Care Teams Cone Classifier Tender Relationship Specialty Start Date End Date Julieth Acosta MD PCP - General Internal Medicine 04/24/17 03/14/22 Ayse Warner MD [address] [place] [id number] PCP - General Internal Medicine 03/15/22 documented as of this encounter
--- OUTSIDE RECORDS SUMMARY | 2025-04-03 18:37 | XMS_ITS | Encounter Summary ---
Author Organization [facility] Address [address] [place] [address] Care Team Providers Care Ethernet Network Architect Name Role Phone Ayse Warner MD Primary Care Provider [phone] Encounter Details Date Type Department Care Team (Late st Contact Info) Description 10/13/2024 Nurse Triage Adult Medicine [address] [phone] Ayse Warner MD [address] [place] [address] Social History Tobacco Use Types Packs/Day Years [...] on filedocumented in this encounter Care Teams Ethernet Network Architect Relationship Specialty Start Date End Date Ayse Warner MD PCP - General Internal Medicine 03/02/24 documented as of this encounter
[2025-04-03 20:00] VITALS: BP 119/74; PULSE 77; TEMP 36.9; O2SAT 98
--- NOTE | 2025-04-03 21:23 | ED.NAVMDI ---
HPI - Nausea/Vomiting/Diarrhea General Chief complaint: Abdominal Pain Stated complaint: stomach pain Time Seen by Provider: 04/03/25 21:00 Source: patient Mode of arrival: ambulatory Limitations: no limitations History of Present Illness ED Provider: Dr. Trinity Queen HPI Narrative: 30-year-old female with a known history of gastroparesis who presents to the ED with three days of worsening nausea, vomiting, and minimal oral intake. She reports recurrent flares necessitating frequent ED visits for IV fluids, with the most recent visit in October and a prior visit in September for easy bruising. During the current episode she is unable to tolerate anything beyond small amounts of mashed potatoes and vomits even after smoothies. Vomiting is sudden and severe, often accompanied by presyncope. She denies current abdominal pain, but when pain does occur it is rare and localized to the mid-left abdomen. She denies fever, diarrhea, dysuria, hematuria, or significant changes from her baseline chronic mild constipation (reduced stool frequency related to low fiber intake). Home medications include sublingual ondansetron as needed and occasional famotidine; she avoids omeprazole due to nausea and has had intolerable adverse effects (severe anxiety, ?crawling on skin?) with prior metoclopramide use, which she requests be considered an intolerance/allergy. No other daily medications. No hospitalizations for gastroparesis; cholecystectomy five years ago did not improve symptoms and she feels symptoms worsened post-op. Social history negative for alcohol, tobacco, cannabis, or other drug use. She feels stress and school finals may contribute. No new travel, sick contacts, or unusual food exposures. Related Data Previous Rx's ?Medication ?Instructions ?Recorded loperamide 2 mg capsule (Imodium 2 mg PO Q4H PRN loose stool #14 06/27/22 A-D) caps esomeprazole magnesium 40 mg 40 mg PO DAILY #30 caps 04/08/23 capsule,delayed release (Nexium) bisacodyl 5 mg tablet,delayed 10 mg (2 x 5 mg) PO BEDTIME #60 12/08/23 release (Dulcolax (bisacodyl)) tabs metoclopramide HCl 5 mg/5 mL oral 5 mg (5 mL) PO BID 30 days #300 mL 12/24/23 solution sucralfate 100 mg/mL oral 10 ml PO BID #1,000 mL 01/26/24 suspension erythromycin 250 mg tablet 250 mg PO BID 3 days #6 tabs 04/29/24 ondansetron 4 mg disintegrating 4 mg PO DAILY PRN nausea and 08/31/24 tablet vomiting 5 days #7 tabs amoxicillin 875 mg-potassium 1 tab PO BID 10 days #20 tabs 10/14/24 clavulanate 125 mg tablet omeprazole 20 mg capsule,delayed 20 mg PO BID #60 caps 11/20/24 release ondansetron 4 mg disintegrating 4 mg PO BID PRN nausea and 01/04/25 tablet vomiting 30 days #20 tabs ondansetron HCl 4 mg tablet 4 mg PO Q8H #10 tabs 01/04/25 promethazine 12.5 mg rectal 12.5 mg TX BID #12 ea 01/04/25 suppository Allergies Allergy/AdvReac Type Severity Reaction Status Date / Time No Known Allergies Allergy Verified 04/03/25 15:13 Review of Systems Review of Systems: as per HPI, full review of systems performed and negative but for the above mentioned pertinent positives and negatives. [facility] Past Medical History Surgical History History of laparoscopic cholecystectomy (11/14/22) Hx of colonoscopy History of esophagogastroduodenoscopy (EGD) History of wisdom tooth extraction Family History Family History Father Cancer Maternal Grandmother Cancer Paternal Grandfather Cancer Social History Social History Alcohol intake: never Patient Tobacco Use Status: Never used Tobacco Advance Directives: No Advance Directives Information Provided: Yes Do you have a plan to hurt others: No Plan Physical Exam Exam: Exam: GENERAL: Ill-Appearing, appears uncomfortable. SKIN: Normal skin color for ethnicity, warm, dry, no rashes noted. HEENT:? Normocephalic, atraumatic, no stridor, dry mucous membranes, dentition intact, EOMI. NECK: Soft, supple, full ROM, midline structures nontender, no step-offs, no deformities, no lymphadenopathy. CHEST: Heart regular rhythm, no murmurs, symmetric chest rise and fall. PULMONARY: Clear to auscultation bilaterally, diminished at the bases, no labored breathing, no wheezes/rhales/rhonchi. ABDOMINAL: Soft, nondistended, nontender, quiet bowel sounds in all quadrants. : Deferred. MUSCULOSKELETAL: Normal tone, full range of motion, no deformities, no peripheral edema. NEURO: Alert and oriented x3, CN II through XII intact, equal strength and sensation bilateral upper and lower extremities, no focal neurologic deficits.? PSYCHIATRIC: Flat affect, fluid speech, good eye contact and appropriate demeanor. Vital Signs: Vital Signs: Last Vital Signs Temp 98.5 F 04/03/25 20:00 Pulse 77 04/03/25 20:00 Resp 18 04/03/25 15:11 BP 119/74 04/03/25 20:00 Pulse Ox 98 04/03/25 20:00 O2 Del Method Room Air 04/03/25 20:00 BMI result Body Mass Index 23.4 Medical Decision Making Medical Decision Making MDM Narrative: 30-year-old female with known gastroparesis presenting with typical flare of nausea/vomiting without objective evidence of dehydration or infection. Laboratory studies are reassuring; abdominal exam consistent with gastroparesis. Problem #1: Gastroparesis flare with nausea/vomiting Assessment: Three-day flare characterized by intractable nausea/vomiting and minimal PO intake. Labs normal, no laboratory dehydration, bowel sounds quiet. Plan: Administer antiemetic medication in ED (ondansetron as tolerated; avoid metoclopramide due to prior adverse reaction). IV fluid bolus for symptomatic support despite normal labs. Monitor response in ED; reassess after medications and fluids. Problem #2: Possible contaminated urine sample Assessment: UA with squamous cells, no urinary symptoms, afebrile?findings most consistent with contamination; low suspicion for UTI. Plan: No antibiotics indicated at this time. Differential Diagnosis Differential Diagnoses: The differential diagnosis associated with the presentation includes (as above) Admission/Observation Consideration of admission/observation: Escalation of care including admission/observation considered Lab Data [facility] Lab Attestation statement: I reviewed the patient's lab results. 04/03/25 15:23 04/03/25 15:23 Labs: Lab Results 04/03/25 04/03/25 Range/Units 15:23 15:48 WBC 9.6 (4.8-10.8) X10*3/uL RBC 5.03 (4.20-5.50) X10*6/uL Hgb 14.3 (12.0-16.0) g/dl Hct 43.0 (37.0-47.0) % MCV 85.5 (80.0-98.0) fL MCH 28.4 (27.0-33.0) pg MCHC 33.3 (31.0-35.0) g/dl RDW 12.2 (11.0-16.0) % Plt Count 257 (160-400) X10*3/uL MPV 10.2 (9.4-12.3) fL Immature Gran % (Auto) 0.2 (0.0-0.4) % Neut % (Auto) 74.7 H (45-73) % Lymph % (Auto) 16.6 L (20-40) % [place] % (Auto) 5.3 (2-11) % Eos % (Auto) 2.1 (0-4) % Baso % (Auto) 1.1 (0-2) % Lymph # (Auto) 1.6 (1.2-4.9) X10*3/uL [place] # (Auto) 0.5 (0.1-1.2) X10*3/uL Eos # (Auto) 0.2 (0.0-0.4) X10*3/uL Baso # (Auto) 0.1 (0.0-0.2) X10*3/uL Abs Immat Gran (auto) 0.02 (0.00-0.03) X10*3/uL Absolute Neuts (auto) 7.2 (2.0-8.3) x10*3/uL Absolute Nucleated RBC 0.000 (0.0-0.012) X10*3/uL Nucleated RBC % (auto) 0.0 (0.0-0.2) /100WBC Sodium 140 (135-145) mmol/L Potassium 4.1 (3.3-5.1) mmol/L Chloride 108 (96-108) mmol/L Carbon Dioxide 24 (22-29) mmol/L Anion Gap 12 (12-20) BUN 12 (9-16) mg/dL Creatinine 0.76 (0.5-1.4) mg/dL Estim Creat Clear Calc 84.0 Estimated GFR > 60 Random Glucose 100 (60-115) mg/dL Calcium 9.1 (8.4-10.2) mg/dL Magnesium 1.9 (1.6-2.6) mg/dL Total Bilirubin 0.6 (0.0-1.0) mg/dL Direct Bilirubin 0.2 (0.0-0.5) mg/dL AST 27 (5-31) U/L ALT 17 (0-31) U/L Alkaline Phosphatase 68 (39-117) U/L Total Protein 7.1 (6.5-8.0) g/dL Albumin 4.7 (3.5-5.0) g/dL Lipase 23 (8-78) U/L Urine Color Yellow Urine Appearance Cloudy Urine pH 5.5 (5.0-9.0) Ur Specific Douglas >= 1.030 H (1.005-1.025) Urine Protein Trace (Neg-Trace) mg/dL Urine Glucose (UA) Negative (Negative) mg/dL Urine Ketones 40 (Negative) mg/dL Urine Blood Trace H (Negative) Urine Nitrite Negative (Negative) Ur Leukocyte Esterase Trace H (Negative) Urine RBC 0-2 (0-2) /HPF Urine WBC 6-10 H (0-5) /HPF Ur Squamous Epith Cells 11-20 (0-2) /HPF Urine Bacteria 3+ (None Seen) Hyaline Casts 3-5 (0-2) /LPF Urine Test NEGATIVE (NEGATIVE) External Record Review External record reviewed: Inpatient record Prescription Management I considered prescription management with: Other (antiemetic) Chronic Conditions Patient?s care impacted by: Other (gastroparesis) Discharge Plan Discharge Clinical Impression: Gastroparesis Nausea & vomiting Qualifiers: Vomiting type: unspecified Qualified Code(s): R11.2 - Nausea with vomiting, unspecified Instructions: Gastroparesis (ED) Additional Instructions: Continue to use antiemetics as needed at home for nausea and vomiting. You should try to take more antacids as significant stomach acid production can contribute to worsening nausea and vomiting. This is especially true in the setting of high stress and high cortisol levels which you has been experiencing lately. Try to eat a bland diet. Try to drink as much fluid as possible and rest when you can. Prescriptions: No Action loperamide [Imodium A-D] 2 mg capsule 2 mg PO Q4H PRN (Reason: loose stool) Qty: 14 0RF Rx Instructions: Take 4 mg in the morning, followed by 2 mg after each loose stool. You can take up to a maximum of 16 mg/day. bisacodyl [Dulcolax (bisacodyl)] 5 mg tablet,delayed release (DR/EC) 10 mg PO BEDTIME Qty: 60 4RF sucralfate 100 mg/mL suspension 10 ml PO BID Qty: 1000 1RF erythromycin 250 mg tablet 250 mg PO BID 3 Days Qty: 6 0RF promethazine 12.5 mg suppository 12.5 mg TX BID Qty: 12 1RF ondansetron HCl 4 mg tablet 4 mg PO Q8H Qty: 10 0RF ondansetron 4 mg tablet,disintegrating 4 mg PO BID PRN (Reason: nausea and vomiting) 30 Days Qty: 20 2RF ondansetron 4 mg tablet,disintegrating 4 mg PO DAILY PRN (Reason: nausea and vomiting) 5 Days Qty: 7 0RF amoxicillin-pot clavulanate 875-125 mg tablet 1 tab PO BID 10 Days Qty: 20 0RF omeprazole 20 mg capsule,delayed release(DR/EC) 20 mg PO BID Qty: 60 0RF esomeprazole magnesium [Nexium] 40 mg capsule,delayed release(DR/EC) 40 mg PO DAILY Qty: 30 5RF metoclopramide HCl 5 mg/5 mL solution 5 mg PO BID 30 Days Qty: 300 0RF Rx Instructions: Take twice a day x 5 days then take a holiday for 2 days; repeat. Print Language: Bahamian
[2025-04-03] MEDS: Lactated Ringers 1,000 ML 999 ML IV (22:11)
--- NOTE | 2025-04-03 22:29 | PC.NURSE ---
Pt called out stating she was having panic attack, felt like crawling out of skin post Compazine admin. Dr. Queen aware. Pt medicated with IV Benadryl as ordered. Primary RN Velma made aware.
[2025-04-03 23:11] VITALS: BP 131/66; RESP 22; O2SAT 99
[2025-04-03] MEDS: diazePAM 10 MG/2 ML CARTRIDGE 5 MG IVPUSH (23:14)
--- NOTE | 2025-04-03 23:46 | PC.NURSE ---
Report to Tanisha LARKIN, via telephone
--- NOTE | 2025-04-04 00:18 | PC.NURSE ---
assumed care of pt, pt reports feeling better and wanting to go home. provider aware.
[2025-04-04 00:52] VITALS: BP 138/80; PULSE 98; RESP 18; TEMP 36.8; O2SAT 99
== END 2025-04-04 00:54 | disposition home or self-care (01) ==
PROVIDERS: Physician Assistant; Emergency Provider Emergency Medicine
DX: K31.84 Gastroparesis (principal); R11.2 Nausea with vomiting, unspecified; Z87.19 Personal history of other diseases of the digestive system; Z79.899 Other long term (current) drug therapy
CPT/HCPCS: 36415; 80048; 80076; 81001; 81025; 83690; 83735; 85025; 87086; 96361; 96374; 96375; 99284; J0737; J1200; J1308; J3360; J7120